=== PATIENT | female | born 1965 | race Caucasian/White ===

== ENCOUNTER 2017-06-09 11:44 | Day surgery (SDC) | payer OTHER ==
[2017-04-13 11:32] VITALS: BMI 40.0
--- NOTE | 2017-04-13 12:01 | PAT Medication Instructions ---
Service Date Apr 13, 2017. Current Home Medication List Acetaminophen (Tylenol), 2 TAB PO Q12 PRN for Pain Albuterol Sulfate (Proventil Hfa), 2 PUFF INH Q4H PRN for Shortness of Breath Aspirin (Aspirin Chewable), 81 MG PO QAM Atorvastatin (Lipitor), 20 MG PO QPM Atorvastatin (Lipitor), 20 MG PO QPM Folic Acid (Folvite), 1 MG PO QPM Ketoconazole (Topical) (Ketodan), 1 DOSE EXT DIRECTED PRN for RASH Metoprolol Succ (Toprol Xl) (Toprol-Xl), 1 TAB PO BID Nortriptyline (Pamelor), 50 MG PO HS Omeprazole (Prilosec), 20 MG PO QAM Ramipril (Ramipril), 1 CAP PO QPM Ranitidine Hcl (Zantac), 300 MG PO HS Medication Instructions For Your Scheduled Surgery - Hold the following medications 5 days prior to surgery per surgeon's instructions: Aspirin (Aspirin Chewable), 81 MG PO QAM - Hold the following medications 24 hours prior to surgery: Ramipril (Ramipril), 1 CAP PO QPM Ketoconazole (Topical) (Ketodan), 1 DOSE EXT DIRECTED PRN for RASH - Take the following medications the morning of surgery with a sip of water OTHERWISE NOTHING TO EAT OR DRINK AFTER MIDNIGHT: Acetaminophen (Tylenol), 2 TAB PO Q12 PRN for Pain (may take if needed up to 4 hours prior to surgery) Albuterol Sulfate (Proventil Hfa), 2 PUFF INH Q4H PRN for Shortness of Breath ( use if needed; BRING TO HOSPITAL) Omeprazole (Prilosec), 20 MG PO QAM Metoprolol Succ (Toprol Xl) (Toprol-Xl), 1 TAB PO BID - Take the following medications as scheduled the night before surgery: Ranitidine Hcl (Zantac), 300 MG PO HS Acetaminophen (Tylenol), 2 TAB PO Q12 PRN for Pain Albuterol Sulfate (Proventil Hfa), 2 PUFF INH Q4H PRN for Shortness of Breath Atorvastatin (Lipitor), 20 MG PO QPM Folic Acid (Folvite), 1 MG PO QPM Nortriptyline (Pamelor), 50 MG PO HS Metoprolol Succ (Toprol Xl) (Toprol-Xl), 1 TAB PO BID If you have any questions please call us at [phone] or [phone] or [phone]
[2017-04-13 12:58] LABS: BASO % 0.8 %; BASO ABS # 0.04 K/uL (0-0.2); COMPLETE YES; EOS % 4.4 %; HEMATOCRIT 39.7 % (37-47); IG% 0.2 %; LYMPH % 29.6 %; LYMPH ABS # 1.49 K/uL (1.2-3.4); MEAN CELL VOLUME 80.4 fL (80-100); MEAN CORPUSCULAR HEMOGLOBIN 25.3 pg (25-34); MEAN CORPUSCULAR HGB CONC 31.5 g/dl (32-36); MEAN PLATELET VOLUME 11.5 fL (7.4-10.4); MONO % 10.1 %; NEUT % 54.9 %; PLATELET COUNT 172 K/uL (130-400); RED BLOOD COUNT 4.94 M/uL (4.2-5.4); WHITE BLOOD COUNT 5.04 K/uL (4.8-10.8)
[2017-04-13 13:05] LABS: PROTHROMBIN TIME (PATIENT) 10.8 SECONDS (9.0-12.0)
[2017-04-13 13:06] LABS: CALCIUM 9.2 mg/dl (8.5-10.1); CREATININE 0.8 mg/dl (0.60-1.20); POTASSIUM 4.9 mmol/L (3.5-5.1)
--- NOTE | 2017-04-13 13:46 | DIAGNOSTIC IMAGING REPORT ---
CHEST PREADMISSION(PA/LAT) CLINICAL HISTORY: Preoperative evaluation. COMPARISON STUDY: No previous studies for comparison. FINDINGS: Lung volumes are normal. There is no pneumothorax or pleural effusion. Mild opacity along the left heart border likely reflects epicardial fat pad or atelectasis. There is no evidence of pulmonary edema. Cardiac size is normal. Mediastinal contours are unremarkable. IMPRESSION: No acute cardiopulmonary findings. Electronically signed by: Tyrell Roque M.D. 04/13/2017 1:45 PM Dictated Date/Time: 04/13/2017 1:43 PM
--- NOTE | 2017-06-08 22:28 | History and Physical ---
History & Physical Date Jun 08, 2017. Chief Complaint right foot pain History of Present Illness The patient is a 51 year old female with complaints of right foot plantar fasciitis that has been treated conservatively. X-rays noted a calcaneal spur. She failed all conservative management and is now being set up for surgical management. Past Medical/Surgical History PMH: CAD, HTN, hyperlipidemia, polycythemia, GERD, asthma Past surgical Hx: cardiac catheterization, lap akash, hysterectomy Social hx: + smoker Allergies Coded Allergies: NO KNOWN DRUG ALLERGIES (Verified Allergy, Unknown, ., 04/13/17) Home Medications Scheduled Aspirin (Aspirin Chewable), 81 MG PO QAM Atorvastatin (Lipitor), 20 MG PO QPM Folic Acid (Folvite), 1 MG PO QPM Metoprolol Succ (Toprol Xl) (Toprol-Xl), 1 TAB PO BID Nortriptyline (Pamelor), 50 MG PO HS Omeprazole (Prilosec), 20 MG PO QAM Ramipril (Ramipril), 1 CAP PO QPM Ranitidine Hcl (Zantac), 300 MG PO HS Scheduled PRN Acetaminophen (Tylenol), 2 TAB PO Q12 PRN for Pain Albuterol Sulfate (Proventil Hfa), 2 PUFF INH Q4H PRN for Shortness of Breath Ketoconazole (Topical) (Ketodan), 1 DOSE EXT DIRECTED PRN for RASH Physical Examination Skin: warm/dry, no rash Eyes: normal inspection Head: normocephalic, atraumatic Neck: supple, no adenopathy, trachea midline Respiratory/Chest: lungs clear, normal breath sounds, no respiratory distress Cardiovascular: regular rate, rhythm, no edema Abdomen / GI: normal bowel sounds, non tender Extremities: + pertinent finding (Antalgic gait favoring the RLE. Right foot: tender at the plantar fascia origin. + calcaneal squeeze test. ROM and strength intact.) Neurologic/Psych: no motor/sensory deficits, alert, oriented x 3 Diagnosis Right foot plantar fasciitis Right calcaneal spur Plan of Treatment Recommend a right foot plantar fascia release and calcaneal exostectomy. All potential risks, benefits, complications, alternatives, and rehab have been discussed and she wishes to proceed as indicated. She will be scheduled on 06.09.17.
[~2017-06-09] VITALS: Ht 162.6 cm; Wt 105.7 kg
[~2017-06-09 11:44] MED LIST: ACET-1256 PO; ALBUAER INH; ASPCH81X PO; ATOR-22 PO; CEFAZOLIN 2000 MG/60 ML D5W IV SCH; FOLI1TAB7 PO; KETO1AER EXT; LACTATED RINGER'S 1000ML 1,000 ML IV SCH; METO25TA3 PO; NORT50CA PO; PRLSR20 PO; RAMI5CAP PO; RANI300T PO; ROPIVACAINE 0.5% 5 MG/ML 30 ML VIAL ONE
[2017-06-09 12:12] VITALS: BP 144/96; PULSE 87; TEMP 36.5; O2SAT 98; Ht 162.6 cm; Wt 105.7 kg
[2017-06-09] MEDS ORDERED: MIDAZOLAM HCL 1 MG/ML 2ML VIAL ONE ×2 (13:05→13:59)
[2017-06-09] MEDS ORDERED: LIDOCAINE HCL 2% 2 ML VIAL (20MG/ML) ONE (13:05)
[2017-06-09] MEDS ORDERED: FENTANYL CITRATE INJ 50 MCG/1 ML 2 ML VIAL ONE (13:05)
[2017-06-09] MEDS ORDERED: DEXAMETHASONE SOD INJ 4 MG/ML VIAL ONE (13:05)
[2017-06-09] MEDS ORDERED: PROPOFOL IV EMULSION 10 MG/ML 20 ML VIAL IV ONE (13:05)
[2017-06-09] MEDS ORDERED: ONDANSETRON INJ 2 MG/ML 2 ML VIAL ONE (13:05)
[2017-06-09 14:15] VITALS: PULSE 84; O2SAT 100
[2017-06-09] MEDS ORDERED: HYDROmorphone INJ 1 MG/ML SYR IV PRN (14:15)
[2017-06-09] MEDS ORDERED: ATROPINE SULFATE 0.1 MG/ML 5ML SYR IV PRN (14:15)
[2017-06-09] MEDS ORDERED: ONDANSETRON INJ 2 MG/ML 2 ML VIAL IV PRN (14:15)
[2017-06-09] MEDS ORDERED: EpHEDrine SULFATE INJ 50 MG/ML AMP IV PRN (14:15)
[2017-06-09] MEDS ORDERED: BUPIVACAINE 0.5 % 5 MG/1 ML MPF 30ML VIAL ONE (14:20)
--- NOTE | 2017-06-09 14:58 | History & Physical Bridge Note ---
H&P Re-Evaluation Bridge Note: I have examined the patient, reviewed the History & Physical and in the interval since the performance of the History & Physical I have noted the following changes of clinical significance: No changes noted
[2017-06-09] MEDS ORDERED: ROCURONIUM BROMIDE 10 MG/ML 5 ML VIAL IV ONE (15:56)
[2017-06-09] MEDS ORDERED: GLYCOPYRROLATE INJ 0.2 MG/ML VIAL ONE (16:37)
[2017-06-09] MEDS ORDERED: NEOSTIGMINE METHYLSULFATE 5 MG/5 ML SYR ONE (16:37)
--- NOTE | 2017-06-09 16:44 | Anesthesiology Progress Note ---
Anesthesia Post Op Note Date & Time Jun 09, 2017 at 16:43 Vital Signs Pain Intensity: 4 Vital Signs Past 12 Hours Date Time Temp Pulse Resp B/P (MAP) Pulse Ox O2 Delivery O2 Flow Rate FiO2 06/09/17 14:15 84 22 100 Mask 6.0 06/09/17 12:12 36.5 87 20 144/96 (112) 98 Room Air Notes Mental Status: alert / awake / arousable, participated in evaluation Pt Amnestic to Procedure: Yes Nausea / Vomiting: adequately controlled Pain: adequately controlled Airway Patency, RR, SpO2: stable & adequate BP & HR: stable & adequate Hydration State: stable & adequate Anesthetic Complications: no major complications apparent
--- NOTE | 2017-06-09 16:52 | Discharge Instructions ---
Discharge Instructions Date of Service Jun 09, 2017. Admission Reason for Admission: Right Foot Plantar Fascitis, Exostosis Discharge Discharge Diagnosis / Problem: Right Foot Plantar Fascitis, Exostosis Discharge Goals Goal(s): Decrease discomfort, Improve function Activity Recommendations Activity Limitations: per Instructions/Follow-up section Weightbearing Status: Right non-weightbearing . Instructions / Follow-Up Instructions / Follow-Up ACTIVITY RECOMMENDATIONS: Limitations: No weight bearing to affected limb at all times. SPECIAL CARE INSTRUCTIONS: * Some drainage onto the dressing is normal and is no cause for alarm. * Some swelling is natural especially after walking. * When resting, keep your foot elevated above the level of your heart. * Call [facility] if you notice: -Increased drainage -Fever over 101 degrees F -Severe constant pain BANDAGE: * Leave bandage/cast in place unless otherwise directed. * Keep bandage/cast dry at all times. FOLLOW UP VISIT WITH DR. DOBSON If appointment is not already scheduled: Please call [facility] after you get home today to schedule a follow-up appointment for [address] Dobson at . Current Hospital Diet Patient's current hospital diet: Discharge Diet Recommended Diet: Regular Diet Procedures Procedures Performed: Right Foot Plantar Fascia Release, Calcaneal Exostectomy Pending Studies Studies pending at discharge: no Medical Emergencies . Who to Call and When: Medical Emergencies: If at any time you feel your situation is an emergency, please call [phone] immediately. . Non-Emergent Contact Non-Emergency issues call your: Surgeon Call Non-Emergent contact if: temperature is above 101, your pain is worsening , wound has increased drainage . "Provider Documentation" section prepared by Cash Dobson. . VTE Core Measure Inpt VTE Proph given/why not?: Other Anticoagulation (EC ASA 81mg PO daily)
[2017-06-09 17:15] VITALS: BP 147/94; PULSE 82; TEMP 36.4; O2SAT 94
[2017-06-09 17:45] VITALS: BP 147/70; PULSE 69; O2SAT 97
[2017-06-09 18:15] VITALS: BP 144/83; PULSE 72; TEMP 36.2; O2SAT 96
--- NOTE | 2017-07-14 08:52 | [facility] Post Operative Brief Note ---
Immediate Operative Summary Operative Date Jul 14, 2017. Pre-Operative Diagnosis Right foot plantar fasciitis; Right calcaneal spur Post-Operative Diagnosis Right foot plantar fasciitis; Right calcaneal spur Procedure(s) Performed Right Foot Plantar Fascia Release; Calcaneal Exostectomy Surgeon Dr. Cash Allen Industrial Chemistry Teacher Surgeon(s) None Estimated Blood Loss 4ml Findings See dict Specimens none per surgeon Dr. Cash Allen Drains None Anesthesia GLMA w/ regional Complication(s) None Disposition Recovery Room / PACU
--- NOTE | 2017-07-14 09:12 | OPERATIVE REPORT ---
DATE OF OPERATION: 06/09/2017 PREOPERATIVE DIAGNOSES: 1. Right chronic plantar fasciitis. 2. Calcaneal exostosis. POSTOPERATIVE DIAGNOSES: 1. Right chronic plantar fasciitis. 2. Calcaneal exostosis. PROCEDURE: 1. Right plantar fascial release. 2. Right calcaneal exostectomy. SURGEON: Cash Allen DO. FINISHING ROOM OPERATOR: Moris Altamirano PA-C. ANESTHESIA: General LMA with regional. SPECIMENS: None. DRAINS: None. COMPLICATIONS: None. BLOOD LOSS: 4 mL. PERTINENT HISTORY: This is a 51-year-old female who had a case of chronic plantar fascitis with calcaneal exostosis. She attempted and failed conservative management including physical therapy, physician directed home exercises, use of a night splint, shoe inserts, activity modification and observation. The patient was then scheduled for right plantar fascial release with calcaneal exostectomy as indicated. All potential risks, benefits, complications, alternatives, rehab, potential for incomplete relief of symptoms, need for further surgery, DVT, PE, , persistent pain, swelling, scarring, weakness, neurovascular injury, wound complications, persistent heel pain were discussed with the patient. The patient decided to proceed with procedure as indicated. DESCRIPTION OF PROCEDURE: The patient was taken to operative suite, placed supine on the operating room table. After review of consent and identification of proper operative site, the patient was anesthetized, LMA was placed. The patient had previously received a popliteal block in the preoperative holding area. The right lower extremity was then sterilely prepped and draped in usual fashion, elevated, and exsanguinated with an Esmarch bandage and tourniquet inflated to 350 mmHg. Next, a 15 blade scalpel was used to make an incision on the medial border of the heel adjacent to the plane of the posterior aspect of the medial malleolus. The incision was then deepened through the subcutaneous tissue, centered over the plantar fascial origin. The incision was then deepened through subcutaneous tissue. Meticulous hemostasis was achieved with electrocautery. Appropriate retractors were placed in the incision to gain visualization of the plantar fascia. The plantar fascia was then cut with a 15 blade scalpel approximately [address] the plantar fascia thus retaining the lateral approximately 20-25% of the fascia attachment laterally. Next, a 15 blade was then used to excise a small portion of the hypertrophic scared plantar fascia. Next, the calcaneal exostosis was visualized clearly and then a 10 mm osteotome and mallet was then used to remove the exostosis without difficulty. Exostosis was then retrieved with a rongeur and the calcaneus was then smoothed and contoured with a rongeur. Next, the wound was copiously irrigated with sterile normal saline. There was minimal bleeding noted and at this point opted not place any bone wax on the calcaneus. The irrigation was then performed until clear. Next, 2-0 Vicryl was used to close the deep fascia, 3-0 Vicryl was then used to close the dermis and the skin was then closed using interrupted 4-0 nylon. Next, sterile compressive dressing was applied and wrapped with a bulky plaster splint. The foot was held in neutral dorsiflexion and the tourniquet was released. The patient was then awakened and taken to recovery in stable condition. I attest to the content of the Intraoperative Record and any orders documented therein. Any exception s are noted below.
== END 2017-06-09 18:25 | disposition home or self-care (01) ==
LOC: C.ACU 11:44
PROVIDERS: ATTEND Orthopaedic Surgery Sports Medicine
DX: M72.2 Plantar fascial fibromatosis (principal); M77.31 Calcaneal spur, right foot; I25.10 Atherosclerotic heart disease of native coronary artery without angina pectoris; I10 Essential (primary) hypertension; E78.5 Hyperlipidemia, unspecified; K21.9 Gastro-esophageal reflux disease without esophagitis; J45.909 Unspecified asthma, uncomplicated; Z90.49 Acquired absence of other specified parts of digestive tract; Z90.710 Acquired absence of both cervix and uterus; Z79.82 Long term (current) use of aspirin; Z95.818 Presence of other cardiac implants and grafts; E66.01 Morbid (severe) obesity due to excess calories; D45 Polycythemia vera

== ENCOUNTER 2021-09-20 11:33 | Inpatient (IN) ==
--- NOTE | 2021-09-20 11:39 | Emergency Department Note ---
Impression & Plan COPD exacerbation, CAP (community acquired pneumonia), Sinus tachycardia, HLD (hyperlipidemia), Tobacco use disorder ED Provider Note NAME: ZANE CARREON AGE: 56 SEX: F : 1965 ARRIVES VIA: Ambulance INFORMANT: Patient, ED PROVIDER(S): Jules Hernandez MD Chief Complaint: Shortness of breath HPI: Patient does present with shortness of breath ongoing x1 week and progressively worse. Patient has had cough that is nonproductive in nature. The patient does smoke but has no former history or formal diagnosis of lung disease. Patient denies any chest pains. Patient denies any lower extremity swelling or history of DVT. Patient denies any calf pain, recent surgeries, recent procedures or travel. The patient did state that her grandchildren had some upper respiratory type symptoms over [place] but nothing else otherwise. Patient has a try to take [id number] medications for cough but this is not improved her symptoms. Patient denies any nausea vomiting or diarrhea. The patient did present at [facility] and stated that the patient did have desaturations to 87% with ambulation with a heart rate in the 180s. Patient is vaccinated for Covid but not the flu. ROS: See HPI for pertinent positives and negatives. A total of 10 systems were reviewed and otherwise negative. Past medical history: See below Surgical history: See below Social history: See below Physical Exam: GENERAL: NAD, wearing a mask, non-toxic. EYE EXAM: Normal conjunctiva. PERRL, no anisocoria and EOM's grossly intact w/o pain. NECK: Supple, no nuchal rigidity, no adenopathy, non-tender. No signs of meningi smus. LUNGS: Diffuse inspiratory and expiratory wheezes throughout. Normal chest wall mechanics. HEART: Tachycardic and regular, no MRG. ABDOMEN: Abdomen soft, non-tender, normo-active bowel sounds, no masses, no rebound or guarding. BACK: No CVA TTP. SKIN: No rashes and no bruising. UPPER EXTREMITIES: Upper extremities are grossly normal. LOWER EXTREMITIES: Grossly normal, no edema. Negative Homans' sign bilaterally NEURO EXAM: A&O x3, cranial nerves II-XII grossly intact, normal speech, moves all 4 extremities on command w/o issue. Differential diagnoses: Reactive airway disease, pneumonia, pneumothorax, COPD, CHF, infections, cardiac ischemia, pulmonary embolism, musculoskeletal, gas trointestinal, as well as other pathologies. Course: Patient was seen and evaluated the bedside. Full history physical exam was performed. EKG interpreted by me Normal sinus rhythm, rate of 100, normal intervals, normal axis, no ST changes or T WI. Imaging Studies: See Below Cardiac monitoring: An order was placed for continuous cardiac monitoring. The monitor shows a rate of 112 with tachycardic and regular rhythm. MDM: Patient did present due to concern for shortness of breath. The patient does have diffuse wheezing throughout. Patient denies any prior or formal diagnosis of lung disease with the patient does smoke. Patient has any chest pains. Patient did have blood work completed along with an EKG troponin chest x-ray. The patient sitting is at 97% and heart rate was in the 110s. Patient was ordered breathing treatments, IV fluids, magnesium, steroids, Covid swab. Patient has a normal white count and normal kidney function. The patient's D- dimer was elevated. Troponin not detectable. Flu Covid and RSV negative. Chest x-ray is unremarkable. CT with no evidence of PE but does have groundglass tree-in-bud opacities which may represent a mild pneumonia. Antibiotics deferred to inpatient team. Upon repeat assessment the patient stated that she did feel improved but the patient still has significant wheezing and believe that the patient would not be suitable candidate for home especially in light of the patient's recent hypoxemia and without prior history of diagnosis of lung disease. I did speak the on-call hospitalist Chari Denise and the patient was admitted to the [facility] service. Past Med/Surg History Medical History CAD (coronary artery disease) s/p stent 2011 in [place] GERD (gastroesophageal reflux disease) HLD (hyperlipidemia) Tobacco use disorder Surgical History H/O foot surgery History of hysterectomy Hx of cholecystectomy Family History Other Heart disease Liver cancer Social History Smoking Status: Current every day smoker Tobacco Type: Cigarettes Second Hand Exposure: No; Do You Dip or Chew Tobacco: No; Tobacco Cessation Education Requested by Patient: No Hx Alcohol Use: No Hx Substance Use: No Preferred Language: Mohawk Communication Ability: Effective Piece Maker Required: No Beliefs That Will Affect Care: None Current Living Situation: Significant Other Other Information That Helps Us Care for You: No Feels Safe at Home: Yes Safety Concerns: Feels Safe At This Time Assistive Devices: None Immunizations: Vaccinated for COVID-19 but not flu. Allergies Allergies Allergy/AdvReac Type Severity Reaction Status Date / Time No Known Drug Allergies Allergy Unknown . Verified 09/20/21 12:53 Home Meds Home Medications Medication Instructions Recorded Confirmed albuterol sulfate 90 mcg/actuation 2 puff INHALATION Q4H PRN #0 04/13/1712/07 aerosol inhaler aspirin 81 mg chewable tablet 81 mg PO DAILY #0 04/13/17 09/20/21 folic acid 1 mg tablet 1 mg PO PM #0 tab 04/13/17 09/20/21 nortriptyline 50 mg capsule 50 mg PO HS #0 cap 04/13/17 09/20/21 omeprazole 20 mg tablet,delayed 20 mg PO QAM #0 cap 04/13/17 09/20/21 release ramipril 5 mg capsule 5 mg PO PM 90 Days #0 cap 04/13/17 09/20/21 atorvastatin 80 mg tablet 80 mg PO DAILY 09/20/21 09/20/21 metoprolol tartrate 25 mg tablet 25 mg PO BID 09/20/21 09/20/21 pregabalin 50 mg capsule 50 mg PO TID 09/20/21 09/20/21 Results & Data (ED) Vital Signs Vital Signs - 24 hr 09/20/21 11:34 09/20/21 11:47 09/20/21 13:02 Temperature 36.7 C Temperature Source Oral Pulse Rate 92 H Pulse Rate [Right Finger] 85 Respiratory Rate 22 18 Respiratory Effort / Characteristics Non-Labored Spontaneous Blood Pressure 155/97 H Blood Pressure [Left Arm] Blood Pressure Mean 116 Blood Pressure Mean [Left Arm] Pulse Oximetry 95 94 Oxygen Delivery Method Room Air Room Air Room Air Sepsis Recent Fever Within 48 Hours No Sepsis New/Unexplained Change in Mental Status No Sepsis Action Taken by Nursing No Action Required 09/20/21 13:24 09/20/21 14:39 Temperature 37 C Temperature Source Axillary Pulse Rate Pulse Rate [Right Finger] 92 H 114 H Respiratory Rate 20 24 Respiratory Effort / Characteristics Blood Pressure Blood Pressure [Left Arm] 128/79 128/79 Blood Pressure Mean Blood Pressure Mean [Left Arm] 95 95 Pulse Oximetry 94 92 Oxygen Delivery Method Room Air Sepsis Recent Fever Within 48 Hours Sepsis New/Unexplained Change in Mental Status Sepsis Action Taken by Prison Medications Current Medication List: was personally reviewed by me Laboratory Data Attestation: I reviewed the patient's lab results. Result diagrams: 09/21/21 05:48 09/20/21 12:12 Lab Results 09/20/21 09/20/21 09/20/21 Range/Units 12:12 12:12 12:46 WBC Cancelled RBC Cancelled Hgb Cancelled Hct Cancelled MCV Cancelled MCH Cancelled MCHC Cancelled RDW Std Deviation Cancelled RDW Coeff of Shira Cancelled Plt Count Cancelled MPV Cancelled Immature Gran % (Auto) Cancelled Neut % (Auto) Cancelled Lymph % (Auto) Cancelled [place] % (Auto) Cancelled Eos % (Auto) Cancelled Baso % (Auto) Cancelled Neut # (Auto) Cancelled Lymph # (Auto) Cancelled [place] # (Auto) Cancelled Eos # (Auto) Cancelled Baso # (Auto) Cancelled Immature Gran # (Auto) Cancelled Absolute Nucleated RBC Cancelled Nucleated RBC % (auto) Cancelled Neutrophils % (Manual) Cancelled Band Neutrophils % Cancelled Lymphocytes % (Manual) Cancelled Prolymphocyte % Cancelled Reactive Lymphs % (Man) Cancelled Monocytes % (Manual) Cancelled Eosinophils % (Manual) Cancelled Basophils % (Manual) Cancelled Metamyelocytes % (Man) Cancelled Myelocytes % (Man) Cancelled Promyelocytes % (Man) Cancelled Blast Cells % (Manual) Cancelled Plasma Cell % (Manual) Cancelled Other Cells % Cancelled Nucleated RBC % Cancelled Neutrophils # (Manual) Cancelled Band Neutrophils # Cancelled Total Absolute Neuts Cancelled Lymphocytes # (Manual) Cancelled Prolymphocyte # Cancelled Reactive Lymphs # Cancelled Total Abs Lymphocytes Cancelled Monocytes # (Manual) Cancelled Eosinophils # (Manual) Cancelled Basophils # (Manual) Cancelled Metamyelocytes # (Man) Cancelled Myelocytes # (Manual) Cancelled Promyelocytes # (Man) Cancelled Blast Cells # (Man) Cancelled Plasma Cell # (Manual) Cancelled Other Cells # Cancelled Nucleated RBCs # (Man) Cancelled Hypersegmented Neuts Cancelled Hyposegmented Neuts Cancelled Hypogranular Neuts Cancelled Large Granular Lymphs Cancelled # Lrg Granular Lymphs Cancelled Hairy Cells Cancelled Smudge Cells Cancelled Toxic Granulation Cancelled Toxic Vacuolation Cancelled Dohle Bodies Cancelled Hunter Rods Cancelled Platelet Estimate Cancelled Hypogranular Platelets Cancelled Clumped Platelets Cancelled Giant Platelets Cancelled Platelet Satelliting Cancelled RBC Morphology Cancelled Polychromasia Cancelled Hypochromasia Cancelled Poikilocytosis Cancelled Basophilic Stippling Cancelled Anisocytosis Cancelled Microcytosis Cancelled Macrocytosis Cancelled Spherocytes Cancelled Pappenheimer Bodies Cancelled Sickle Cells Cancelled Target Cells Cancelled Tear Drop Cells Cancelled Ovalocytes Cancelled Stomatocytes Cancelled [place] Bodies Cancelled Echinocytes Cancelled Acanthocytes (Spur) Cancelled Rouleaux Cancelled RBC Agglutinates Cancelled Schistocytes Cancelled RBC Morph Comment Cancelled [place] Cell Cancelled D-Dimer 880 H* (0-500) ug/L FEU Sodium 136 (136-145) mmol/L Potassium 3.7 (3.5-5.1) mmol/L Chloride 101 (98-107) mmol/L Carbon Dioxide 30 (21-32) mmol/L Anion Gap 5.0 (3-11) BUN 7 (7-18) mg/dl Creatinine 0.76 (0.6-1.2) mg/dl Est Cr Clr Drug Dosing Not Reportable Est GFR ( Amer) 100.9 ml/min Est GFR (Non-Af Amer) 87.1 ml/min BUN/Creatinine Ratio 9.0 L (10-20) Glucose 129 H (70-99) mg/dl Calcium 9.0 (8.5-10.1) mg/dl Total Bilirubin 0.4 (0.2-1) mg/dl AST 21 (15-37) U/L ALT 26 (12-78) Alkaline Phosphatase 99 (45-117) U/L Troponin I < 0.015 (0-0.045) ng/ml NT-Pro-B Natriuret Pep 69 (0-900) pg/ml Total Protein 7.2 (6.4-8.2) gm/dl Albumin 3.1 L (3.4-5.0) gm/dl Globulin 4.1 H (2.5-4.0) gm/dl Albumin/Globulin Ratio 0.8 L (0.9-2) Specimen Hemolysis 09/20/21 Range/Units 12:49 WBC 4.17 L RBC 4.81 Hgb 12.3 Hct 40.1 MCV 83.4 MCH 25.6 MCHC 30.7 L RDW Std Deviation 43.8 RDW Coeff of Shira 14.4 Plt Count 124 L MPV 11.7 H Immature Gran % (Auto) 0.2 Neut % (Auto) 56.3 Lymph % (Auto) 28.1 [place] % (Auto) 12.0 Eos % (Auto) 2.9 Baso % (Auto) 0.5 Neut # (Auto) 2.35 Lymph # (Auto) 1.17 L [place] # (Auto) 0.50 Eos # (Auto) 0.12 Baso # (Auto) 0.02 Immature Gran # (Auto) 0.01 Absolute Nucleated RBC 0.03 H Nucleated RBC % (auto) 0.8 Neutrophils % (Manual) Band Neutrophils % Lymphocytes % (Manual) Prolymphocyte % Reactive Lymphs % (Man) Monocytes % (Manual) Eosinophils % (Manual) Basophils % (Manual) Metamyelocytes % (Man) Myelocytes % (Man) Promyelocytes % (Man) Blast Cells % (Manual) Plasma Cell % (Manual) Other Cells % Nucleated RBC % Neutrophils # (Manual) Band Neutrophils # Total Absolute Neuts Lymphocytes # (Manual) Prolymphocyte # Reactive Lymphs # Total Abs Lymphocytes Monocytes # (Manual) Eosinophils # (Manual) Basophils # (Manual) Metamyelocytes # (Man) Myelocytes # (Manual) Promyelocytes # (Man) Blast Cells # (Man) Plasma Cell # (Manual) Other Cells # Nucleated RBCs # (Man) Hypersegmented Neuts Hyposegmented Neuts Hypogranular Neuts Large Granular Lymphs # Lrg Granular Lymphs Hairy Cells Smudge Cells Toxic Granulation Toxic Vacuolation Dohle Bodies [place] Rods Platelet Estimate Hypogranular Platelets Clumped Platelets Giant Platelets Platelet Satelliting RBC Morphology Polychromasia Hypochromasia Poikilocytosis Basophilic Stippling Anisocytosis Microcytosis Macrocytosis Spherocytes Pappenheimer Bodies Sickle Cells Target Cells Tear Drop Cells Ovalocytes Stomatocytes [place] Bodies Echinocytes Acanthocytes (Spur) Rouleaux RBC Agglutinates Schistocytes RBC Morph Comment [place] Cell D-Dimer (0-500) ug/L FEU Sodium (136-145) mmol/L Potassium (3.5-5.1) mmol/L Chloride (98-107) mmol/L Carbon Dioxide (21-32) mmol/L Anion Gap (3-11) BUN (7-18) mg/dl Creatinine (0.6-1.2) mg/dl Est Cr Clr Drug Dosing Est GFR ( Amer) ml/min Est GFR (Non-Af Amer) ml/min BUN/Creatinine Ratio (10-20) Glucose (70-99) mg/dl Calcium (8.5-10.1) mg/dl Total Bilirubin (0.2-1) mg/dl AST (15-37) U/L ALT (12-78) Alkaline Phosphatase (45-117) U/L Troponin I (0-0.045) ng/ml NT-Pro-B Natriuret Pep (0-900) pg/ml Total Protein (6.4-8.2) gm/dl Albumin (3.4-5.0) gm/dl Globulin (2.5-4.0) gm/dl Albumin/Globulin Ratio (0.9-2) Specimen Hemolysis Administered Medications Enalapril Maleate (Enalapril Maleate 10 Mg Tab) 20 mg PO PM [facility]; Protocol Stop: 10/20/21 20:59 Last Admin: 09/20/21 20:15 Dose: 20 mg Documented by: [id number] Enoxaparin Sodium (Enoxaparin Inj 40 Mg/0.4 Ml Syr) 40 mg SQ Q24H [facility] Stop: 10/20/21 20:59 Last Admin: 09/20/21 22:42 Dose: Not Given Documented by: [id number] Folic Acid (Folic Acid 1 Mg Tab) 1 mg PO PM [facility] Stop: 10/20/21 20:59 Last Admin: 09/20/21 20:15 Dose: 1 mg Documented by: [id number] Methylprednisolone 40 mg/ (Syringe) 0.64 mls @ 1.5 mls/min IV Q8H [facility] Stop: 10/21/21 01:59 Last Admin: 09/21/21 02:19 Dose: 1.5 mls/min Documented by: [id number] Levalbuterol HCl (Levalbuterol Hcl 0.63 Mg/3 Ml Neb) 0.63 mg NEB Q6R [facility]; Protocol Stop: 10/20/21 19:59 Last Admin: 09/21/21 00:30 Dose: 0.63 mg Documented by: [id number] Admin: 09/20/21 19:44 Dose: Not Given Documented by: [id number] Metoprolol Tartrate (Metoprolol Tartrate 25 Mg Tab) 25 mg PO BID ANAND Stop: 10/20/21 20:59 Last Admin: 09/20/21 20:15 Dose: 25 mg Documented by: [id number] Nortriptyline HCl (Nortriptyline Hcl 25 Mg Cap) 50 mg PO HS ANAND Stop: 10/20/21 20:59 Last Admin: 09/20/21 20:15 Dose: 50 mg Documented by: [id number] Pregabalin (Pregabalin 50 Mg Cap) 50 mg PO TID ANAND Stop: 10/20/21 20:59 Last Admin: 09/20/21 21:34 Dose: 50 mg Documented by: [id number] Discontinued Medications Albuterol (Albut/Ipratrop 3mg/0.5mg Neb 3 Ml Vial) 12 ml INH ONE STA Stop: 09/20/21 11:48 Last Admin: 09/20/21 13:02 Dose: 12 ml Documented by: [id number] Albuterol (Albut/Ipratrop 3mg/0.5mg Neb 3 Ml Vial) 12 ml NEB ONE ONE; Protocol Stop: 09/20/21 15:10 Last Admin: 09/20/21 18:54 Dose: Not Given Documented by: [id number] Sodium Chloride (Nss) 500 mls @ 999 mls/hr IV .Q31M STA Stop: 09/20/21 12:17 Last Infusion: 09/20/21 19:23 Dose: 0 mls/hr Documented by: [id number] Admin: 09/20/21 12:53 Dose: 999 mls/hr Documented by: [id number] Magnesium Sulfate/Dextrose (Magnesium Sulfate / D5w) 1 gm in 100 mls @ 100 mls/hr IV NOW STA Stop: 09/20/21 12:47 Last Infusion: 09/20/21 19:23 Dose: 0 mls/hr Documented by: [id number] Admin: 09/20/21 12:53 Dose: 100 mls/hr Documented by: [id number] Azithromycin 500 mg/ Dextrose 255 mls @ 127.5 mls/hr IV NOW ONE Stop: 09/20/21 20:29 Last Infusion: 09/20/21 22:15 Dose: 0 mls/hr Documented by: [id number] Admin: 09/20/21 20:14 Dose: 127.5 mls/hr Documented by: [id number] Ceftriaxone Sodium 2,000 mg/ (Dextrose) 70 mls @ 100 mls/hr IV NOW ONE; Protocol Stop: 09/20/21 19:11 Last Infusion: 09/20/21 20:14 Dose: 0 mls/hr Documented by: [id number] Admin: 09/20/21 19:39 Dose: 100 mls/hr Documented by: [id number] Ioversol (Optiray 320 125ml) 115 ml IV ONCE ONE Stop: 09/20/21 14:30 Last Admin: 09/20/21 14:29 Dose: 115 ml Documented by: [id number] Methylprednisolone (Methylprednisolone 125 Mg/2 Ml Vial) 60 mg IV NOW STA Stop: 09/20/21 11:48 Last Admin: 09/20/21 12:53 Dose: 60 mg Documented by: [id number] Methylprednisolone (Methylprednisolone 40 Mg/Ml Vial) 40 mg IV Q8H ANAND Stop: 10/20/21 17:29 Last Admin: 09/20/21 18:27 Dose: 40 mg Documented by: [id number] Miscellaneous (Patient's Height And/Or Weight Needed) 1 ea N/A Q2H ANAND Stop: 10/20/21 18:44 Last Admin: 09/20/21 19:58 Dose: Not Given Documented by: [id number] Admin: 09/20/21 19:58 Dose: Not Given Documented by: [id number] Imaging Data Radiologist's Impression: Chest X-Ray 09/20/21 11:47 XR chest 1V portable CLINICAL HISTORY: Dyspnea, wheezing TECHNIQUE: Single frontal radiograph of the chest was obtained. Comparison: Comparison is made to chest 2 views 04/13/2017 FINDINGS: No lines and tubes are seen. Cardiomegaly is noted. The lungs are clear. No evidence of pleural effusion or pneumothorax. IMPRESSION: No acute chest disease. ACT 112: Negative or not required by law. Electronically signed by: Wayne Hodgson M.D. 09/20/2021 12:21 PM Chest CTA 09/20/21 13:43 CHEST CTA for PULMONARY ARTERIES CT DOSE: 804.29 mGy.cm HISTORY: Dyspnea. Wheezing. TECHNIQUE: Multiaxial CT images of the chest were performed following the intravenous administration of contrast to evaluate the pulmonary arteries. Maximal intensity projection images were also obtained. A dose lowering technique was utilized adhering to the principles of ALARA. COMPARISON STUDY: None. FINDINGS: Limited views of the upper abdomen demonstrate normal liver, spleen, and right adrenal gland. There is a 1.2 cm left adrenal gland nodule which demonstrates average Hounsfield units of less than 10. Therefore, this would be consistent with a benign adenoma. Prior cholecystectomy. Tiny fat-containing left-sided Bochdalek hernia. The thyroid gland enhances normally. Normal esophagus. The heart is normal in size. No pleural or pericardial effusions. Subcentimeter mediastinal lymph nodes do not meet CT criteria for pathologic involvement. Normal caliber thoracic aorta with no evidence for dissection. Respiratory motion artifact results in nondiagnostic evaluation of the majority of the left lung proximal segmental pulmonary arteries and right lower lobe s ubsegmental pulmonary arteries. However, the remaining pulmonary arteries show no filling defects to suggest a pulmonary embolus. No suspicious lytic or blastic osseous lesions. No pneumothorax. A 3 mm nodule within the left lung apex on image 285. A few small subtle patchy groundglass airspace opacities within the base of the left lower lobe best seen on image 116. Mild emphysema. Small patchy groundglass densities within the right upper lobe anteriorly on image 172 and a few tree-in-bud nodular opacities seen within the right middle lobe and right lower lobe. Therefore, these findings favor a mild pneumonia. IMPRESSION: 1. No evidence for pulmonary embolus with limitations as described above. 2. A few small patchy groundglass and tree-in-bud nodular opacities seen within the lung bases as described above. This favors a mild pneumonia. 3. A 3 mm indeterminate pulmonary nodule within the left lung apex. Please refer to the chart below for recommended follow-up. 4. Mild emphysema. Please refer to below summary of Fleischner criteria recommendations for follow- up of incidental CT nodules (Santiago Spencer, Guidelines for management of small pulmonary nodules detected on CT scans: A statement from the Fleischner Society, Radiology 237: [phone].) SOLID NODULES Solitary nodule size: <6 mm * Low risk patients: no follow-up needed * high risk patients: optional CT at 12 months Solitary nodule size: 6-8 mm * Low risk patients: follow-up at 6-12 months, then consider further follow-up at 18-24 months * high risk patients: initial follow-up CT at 6-12 months and then at 18-24 months if no change Solitary nodule size: >8 mm * either low or high risk patients - consider follow-up CT at 3 months, and/or CT-PET, and/or biopsy Multiple nodules size: <6 mm * Low risk patients: no routine follow-up * high risk patients: optional CT at 12 months Multiple nodules size: 6-8 mm * Low risk patients: follow-up at 3-6 months, then consider further follow-up at 18-24 months * high risk patients: follow-up at 3-6 months, then at 18-24 months if no jacek nge Multiple nodules size: >8 mm * Low risk patients: follow-up at 3-6 months, then consider further follow-up at 18-24 months * high risk patients: follow-up at 3-6 months, then at 18-24 months if no change Note: newly detected indeterminate nodule in persons 35 years of age or older. * Low risk patients: minimal or absent history of smoking and/or other known risk factors * high risk patients: history of smoking or of other known risk factors (e.g. first degree relative with lung cancer, or exposure to asbestos, radon, uranium) * if a nodule up to 8 mm is partly solid or is ground glass further follow-up is required after 24 months to exclude possible slow growing adenocarcinoma ([facility]) SUBSOLID NODULES Solitary pure ground-glass nodule * nodule size <6 mm - no CT follow-up required * nodule size >=6 mm - follow-up CT at 6-12 months, then every 2 years until 5 years Solitary part-solid nodule * nodule size <6 mm - no CT follow-up required * nodule size >=6 mm - follow-up CT at 3-6 months. If unchanged, and solid component remains <6 mm, then annual follow-up for 5 years Multiple subsolid nodules * nodule size <6 mm - follow-up CT at 3-6 months, consider further follow-up at 2 and 4 years if stable * nodule size >=6 mm - follow-up CT at 3-6 months, subsequent management based on the most suspicious nodule(s) ACT 112: Positive. There are findings on this exam that require communication between the performing entity and the patient following Patient Test Result Information Act ([place] Act 112) guidelines. Electronically signed by: Shaun Rockwell M.D. 09/20/2021 2:44 PM Discharge Plan Visit Data Chief Complaint: Illness ED Provider: Jules Hernandez Discharge Problem: COPD exacerbation, CAP (community acquired pneumonia), Sinus tachycardia, HLD (hyperlipidemia), Tobacco use disorder Patient Disposition: Admitted As Inpatient Discharge Instructions Interventions: ED Discharge Assessment Last Done: 09/20/21 18:24
[2021-09-20] MEDS ORDERED: ALBUT/IPRATROP 3MG/0.5MG NEB 3 ML VIAL INH STA (11:47)
[2021-09-20] MEDS ORDERED: SODIUM CHLORIDE 0.9% 500 ML IV STA (11:47)
[2021-09-20] MEDS ORDERED: methylPREDNISolone 125 MG/2 ML VIAL IV STA (11:47)
[2021-09-20] MEDS ORDERED: MAGNESIUM SULFATE / D5W 1 GM/100 ML BAG IV STA (11:48)
--- NOTE | 2021-09-20 12:22 | XRay Report ---
XR chest 1V portable CLINICAL HISTORY: Dyspnea, wheezing TECHNIQUE: Single frontal radiograph of the chest was obtained. Comparison: Comparison is made to chest 2 views 04/13/2017 FINDINGS: No lines and tubes are seen. Cardiomegaly is noted. The lungs are clear. No evidence of pleural effus ion or pneumothorax. IMPRESSION: No acute chest disease. ACT 112: Negative or not required by law. Electronically signed by: Wayne Hodgson M.D. 09/20/2021 12:21 PM
[2021-09-20 13:21] LABS: Influenza A virus by PCR Negative (Neg); Influenza B virus by PCR Negative (Neg); RSV by PCR Negative (Neg); SARS CoV2 RNA(COVID-19) InHosp NEGATIVE (Negative)
[2021-09-20 13:25] LABS: Basophils # (auto) 0.02 K/uL (0-0.2); Basophils % (auto) 0.5 %; Eosinophils # (auto) 0.12 K/uL (0-0.5); Eosinophils % (auto) 2.9 %; Hematocrit (blood only) 40.1 % (37-47); Hemoglobin 12.3 g/dL (12.0-16.0); Immature Granulocytes # (auto) 0.01 K/uL (0.00-0.02); Immature Granulocytes % (auto) 0.2 %; Lymphocytes # (auto) 1.17 K/uL (1.2-3.4); Lymphocytes % (auto) 28.1 %; Mean Corpuscular Hemoglobin 25.6 pg (25-34); Mean Corpuscular Hgb Conc 30.7 g/dL (32-36); Mean Corpuscular Volume 83.4 fL (80-100); Mean Platelet Volume 11.7 fL (7.4-10.4); Neutrophils # (auto) 2.35 K/uL (1.4-6.5); Neutrophils % (auto) 56.3 %; Nucleated RBC # (auto) 0.03 K/uL (0-0); Nucleated RBC % (auto) 0.8 %; Platelet Count 124 K/uL (130-400); RDW Coefficient of Variation 14.4 % (11.5-14.5); RDW Standard Deviation 43.8 fL (36.4-46.3); Red Blood Count 4.81 M/uL (4.2-5.4); White Blood Count 4.17 K/uL (4.8-10.8)
[2021-09-20 13:36] LABS: D Dimer 880 ug/L FEU (0-500)
[2021-09-20 14:05] LABS: Alanine Aminotransferase 26 (12-78); Albumin Globulin Ratio 0.8 (0.9-2); Albumin Level 3.1 gm/dl (3.4-5.0); Alkaline Phosphatase 99 U/L (45-117); Aspartate Aminotransferase 21 U/L (15-37); Bilirubin,Total 0.4 mg/dl (0.2-1); Blood Urea Nitrogen 7 mg/dl (7-18); Carbon Dioxide 30 mmol/L (21-32); Chloride 101 mmol/L (98-107); Est GFR (African American) 100.9 ml/min; Est GFR (Non-African American) 87.1 ml/min; Globulin 4.1 gm/dl (2.5-4.0); Glucose 129 mg/dl (70-99); NT Pro B Type Natriuretic Pept 69 pg/ml (0-900); Potassium 3.7 mmol/L (3.5-5.1); Sodium 136 mmol/L (136-145); Total Protein 7.2 gm/dl (6.4-8.2); Troponin I < 0.015 ng/ml (0-0.045)
--- NOTE | 2021-09-20 14:19 | Electrocardiogram Report ---
Test Reason : Blood Pressure : / mmHG Vent. Rate : 100 BPM Atrial Rate : 100 BPM P-R Int : 134 ms QRS Dur : 072 ms QT Int : 348 ms P-R-T Axes : 074 072 045 degrees QTc Int : 448 ms Normal sinus rhythm Normal ECG When compared with ECG of 13-APR-2017 12:08, No significant change was found Confirmed by Francisco Lee ([id number]) on 09/20/2021 2:19:05 PM Referred By: REFERRED SELF Confirmed By:Francisco Lee
[2021-09-20] MEDS ORDERED: OPTIRAY 320 125ml IV ONE (14:29)
--- NOTE | 2021-09-20 14:45 | CT Scan Report ---
CHEST CTA for PULMONARY ARTERIES CT DOSE: 804.29 mGy.cm HISTORY: Dyspnea. Wheezing. TECHNIQUE: Multiaxial CT images of the chest were performed following the intravenous administration of contrast to evaluate the pulmonary arteries. Maximal intensity projection images were also obtaine d. A dose lowering technique was utilized adhering to the principles of ALARA. COMPARISON STUDY: None. FINDINGS: Limited views of the upper abdomen demonstrate normal liver, spleen, and right adrenal glan d. There is a 1.2 cm left adrenal gland nodule which demonstrates average Hounsfield units of less th an 10. Therefore, this would be consistent with a benign adenoma. Prior cholecystectomy. Tiny fat-con taining left-sided Bochdalek hernia. The thyroid gland enhances normally. Normal esophagus. The heart is normal in size. No pleural or pericardial effusions. Subcentimeter mediastinal lymph nodes do not meet CT criteria for pathologic involvement. Normal caliber thoracic aorta with no evidence for diss ection. Respiratory motion artifact results in nondiagnostic evaluation of the majority of the left l prakash proximal segmental pulmonary arteries and right lower lobe subsegmental pulmonary arteries. Howev er, the remaining pulmonary arteries show no filling defects to suggest a pulmonary embolus. No suspi cious lytic or blastic osseous lesions. No pneumothorax. A 3 mm nodule within the left lung apex on i mage 285. A few small subtle patchy groundglass airspace opacities within the base of the left lower lobe best seen on image 116. Mild emphysema. Small patchy groundglass densities within the right uppe r lobe anteriorly on image 172 and a few tree-in-bud nodular opacities seen within the right middle l obe and right lower lobe. Therefore, these findings favor a mild pneumonia. IMPRESSION: 1. No evidence for pulmonary embolus with limitations as described above. 2. A few small patchy groundglass and tree-in-bud nodular opacities seen within the lung bases as radha cribed above. This favors a mild pneumonia. 3. A 3 mm indeterminate pulmonary nodule within the left lung apex. Please refer to the chart below f or recommended follow-up. 4. Mild emphysema. Please refer to below summary of Fleischner criteria recommendations for follow-up of incidental CT n odules (Santiago Spencer, Guidelines for management of small pulmonary nodules detected on CT scans: A sta tement from the Fleischner Society, Radiology 237: [phone].) SOLID NODULES Solitary nodule size: <6 mm * Low risk patients: no follow-up needed * high risk patients: optional CT at 12 months Solitary nodule size: 6-8 mm * Low risk patients: follow-up at 6-12 months, then consider further follow-up at 18-24 months * high risk patients: initial follow-up CT at 6-12 months and then at 18-24 months if no change Solitary nodule size: >8 mm * either low or high risk patients - consider follow-up CT at 3 months, and/or CT-PET, and/or biopsy Multiple nodules size: <6 mm * Low risk patients: no routine follow-up * high risk patients: optional CT at 12 months Multiple nodules size: 6-8 mm * Low risk patients: follow-up at 3-6 months, then consider further follow-up at 18-24 months * high risk patients: follow-up at 3-6 months, then at 18-24 months if no change Multiple nodules size: >8 mm * Low risk patients: follow-up at 3-6 months, then consider further follow-up at 18-24 months * high risk patients: follow-up at 3-6 months, then at 18-24 months if no change Note: newly detected indeterminate nodule in persons 35 years of age or older. * Low risk patients: minimal or absent history of smoking and/or other known risk factors * high risk patients: history of smoking or of other known risk factors (e.g. first degree relative with lung cancer, or exposure to asbestos, radon, uranium) * if a nodule up to 8 mm is partly solid or is ground glass further follow-up is required after 24 m onths to exclude possible slow growing adenocarcinoma (MONTSE) SUBSOLID NODULES Solitary pure ground-glass nodule * nodule size <6 mm - no CT follow-up required * nodule size >=6 mm - follow-up CT at 6-12 months, then every 2 years until 5 years Solitary part-solid nodule * nodule size <6 mm - no CT follow-up required * nodule size >=6 mm - follow-up CT at 3-6 months. If unchanged, and solid component remains <6 mm, then annual follow-up for 5 years Multiple subsolid nodules * nodule size <6 mm - follow-up CT at 3-6 months, consider further follow-up at 2 and 4 years if sta ble * nodule size >=6 mm - follow-up CT at 3-6 months, subsequent management based on the most suspiciou s nodule(s) ACT 112: Positive. There are findings on this exam that require communication between the performing entity and the patient following Patient Test Result Information Act ([place] Act 112) guidelines. Electronically signed by: Shaun Rockwell M.D. 09/20/2021 2:44 PM
[2021-09-20] MEDS ORDERED: ALBUT/IPRATROP 3MG/0.5MG NEB 3 ML VIAL NEB ONE (15:09)
--- NOTE | 2021-09-20 15:33 | History & Physical Report ---
Date of Service September 20, 2021 Assessment & Plan (1) COPD exacerbation: Plan: This is a 56-year-old female with PMH of tobacco use, hypertension, CAD (s/p stent in 2011), dyslipidemia and other medical problems listed below who presents from [facility] with cough and was found to have COPD exacerbation. Dry cough, congestion and exertional dyspnea x 6 days, 20 pack year history No formal diagnosis of COPD or pulmonology evaluation in the past Became hypoxia with exertion while ambulating in clinic, pulse ox dropped to 87% Afebrile, covid, Flu A/B and RSV PCR negative. Procalcitonin pending Chest CTA without evidence for pulmonary embolus. A few small patchy groundglass and tree-in-bud nodular opacities seen within the lung bases as described above. This favors a mild pneumonia Breathing improved after albuterol neb in ED, given 60mg solumedrol Continue solumedrol 40mg Q8H, Xopenex nebs X6HR Supplemental O2 as needed Would benefit from outpatient pulm evaluation, PFTs (2) CAP (community acquired pneumonia): Plan: Starting Azithromycin and rocephin for possible PNA (3) Tobacco use disorder: Plan: Smoking cessation recommended (4) Pulmonary nodule: Plan: Chest CTA with an incidental3 mm indeterminate pulmonary nodule within the left lung apex Per Fleischner criteria recommendations for follow-up, high risk patient should follow up for optional CT at 12 months (5) Sinus tachycardia: Plan: Developed sinus tachycardia following albuterol treatments in ED - switching to Xopenex neb, monitor on telemetry (6) CAD (coronary artery disease): Plan: H/o stent in 2011 at [facility] No CP or EKG changes. Continue aspirin, statin, beta eunice (7) HLD (hyperlipidemia): Plan: Continue statin DVT Ppx: SQ Lovenox Code status: FULL PCP: Baron Dispo: Admitted to med/surg Patient seen in collaboration with Dr. Carvajal. Please see addendum. History of Present Illness Chief Complaint: Shortness of breath Primary Care Provider: Chris Draper MD This is a 56-year-old female with PMH of tobacco use, hypertension, CAD (s/p st ent in 2011), dyslipidemia and other medical problems listed below who presents from [facility] with cough. Endorses dry cough, congestion and exertional dyspnea, which is not her baseline. Also endorses nausea and decreased appetite over the past few days. [place] similar to this last month when she was also Covid negative. Smokes 1/2 ppd, 20 pack year history. Denies any formal diagnosis of COPD. Has not been evaluated by pulmonology in the past. When ambulating in clinic, pulse ox dropped to 87% and was brought to ED for further evaluation. No shortness of breath at rest. Denies any fever or chills. No sore throat, ear pain, chest pain, palpitations, vomiting, abdominal pain, dysuria, diarrhea constipation. Allergies Allergy/AdvReac Type Severity Reaction Status Date / Time No Known Drug Allergies Allergy Unknown . Verified 09/20/21 12:53 Home Medications Medication Instructions Recorded Confirmed Type albuterol sulfate 90 mcg/actuation 2 puff INHALATION Q4H PRN #0 04/13/17 09/20/21 History aerosol inhaler aspirin 81 mg chewable tablet 81 mg PO DAILY #0 04/13/17 09/20/21 History folic acid 1 mg tablet 1 mg PO PM #0 tab 04/13/17 09/20/21 History nortriptyline 50 mg capsule 50 mg PO HS #0 cap 04/13/17 09/20/21 History omeprazole 20 mg tablet,delayed 20 mg PO QAM #0 cap 04/13/17 09/20/21 History release ramipril 5 mg capsule 5 mg PO PM 90 Days #0 cap 04/13/17 09/20/21 History atorvastatin 80 mg tablet 80 mg PO DAILY 09/20/21 09/20/21 History metoprolol tartrate 25 mg tablet 25 mg PO BID 09/20/21 09/20/21 History pregabalin 50 mg capsule 50 mg PO TID 09/20/21 09/20/21 History Past Med/Surg History Medical History CAD (coronary artery disease) s/p stent 2011 in [place] GERD (gastroesophageal reflux disease) HLD (hyperlipidemia) Tobacco use disorder Surgical History H/O foot surgery History of hysterectomy Hx of cholecystectomy Family History (Updated 09/20/21 @ 17:28 by Chari Denise PA-C) Other Heart disease Liver cancer Social History Smoking Status: Current every day smoker Tobacco Type: Cigarettes Hx Alcohol Use: No Hx Substance Use: No Feels Safe at Home: Yes Review of Systems Review of Systems: At least ten systems reviewed and negative except as noted in the HPI. Physical Exam Physical Exam: General Appearance: WD/WN, vitals as above, NAD, sitting up in bed, pleasant, conversing easily, BUE tremor Head: normocephalic, atraumatic Eyes: normal inspection, PERRL, conjunctivae normal, anicteric sclerae ENT: external ear and nose normal, oropharynx normal Neck: normal visual inspection, trachea midline, no thyromegaly Respiratory: normal respiratory effort, wheezing in anterior lung jacobson, diminished breath sounds at bases, no rhonchi. No accessory muscle use Cardiovascular: tachycardic rate, regular rhythm, no murmur, normal peripheral pulses, no BLE edema. Vessels: no JVD Chest: normal inspection of chest Abdomen/GI: normal bowel sounds, soft, nontender, no hepatosplenomegaly Extremities/Musculoskeletal: no cyanosis or clubbing, extremities motor strength 5/5 Neurologic: PERRL, EOMI, accommodation nl, no face palsy, no dysarthria, CN's II-XI intact bilaterally and moves all extremities Psychiatric: A+Ox3, euthymic affect Skin: no rashes, normal color, warm/dry Results & Data Results & Data ([facility]) Vital Signs (Past 12 Hours) Vital Signs Temp Pulse Pulse Resp BP BP Pulse Ox 09/20/21 14:39 114 H 24 128/79 92 09/20/21 13:24 37 C 92 H 20 128/79 94 09/20/21 13:02 85 18 94 09/20/21 11:34 36.7 C 92 H 22 155/97 H 95 Laboratory Results Short CBC 09/20/21 09/20/21 Range/Units 12:12 12:49 WBC Cancelled 4.17 L Hgb Cancelled 12.3 Hct Cancelled 40.1 Plt Count Cancelled 124 L BMP 09/20/21 12:12 Sodium 136 Potassium 3.7 Chloride 101 Carbon Dioxide 30 BUN 7 Creatinine 0.76 Glucose 129 H Calcium 9.0 Cardiac Enzymes 09/20/21 Range/Units 12:12 Troponin I < 0.015 (0-0.045) ng/ml Liver Function 09/20/21 Range/Units 12:12 Total Bilirubin 0.4 (0.2-1) mg/dl AST 21 (15-37) U/L ALT 26 (12-78) Alkaline Phosphatase 99 (45-117) U/L Albumin 3.1 L (3.4-5.0) gm/dl Diagnostic Findings Chest X-Ray 09/20/21 11:47 XR chest 1V portable CLINICAL HISTORY: Dyspnea, wheezing TECHNIQUE: Single frontal radiograph of the chest was obtained. Comparison: Comparison is made to chest 2 views 04/13/2017 FINDINGS: No lines and tubes are seen. Cardiomegaly is noted. The lungs are clear. No evidence of pleural effusion or pneumothorax. IMPRESSION: No acute chest disease. ACT 112: Negative or not required by law. Electronically signed by: Wayne Hodgson M.D. 09/20/2021 12:21 PM Chest CTA 09/20/21 13:43 CHEST [address]A for PULMONARY ARTER[address] DOSE: 804.29 mGy.cm HISTORY: Dyspnea. Wheezing. TECHNIQUE: Multiaxial CT images of the chest were performed following the intravenous administration of contrast to evaluate the pulmonary arteries. Maximal intensity projection images were also obtained. A dose lowering technique was utilized adhering to the principles of ALARA. COMPARISON STUDY: None. FINDINGS: Limited views of the upper abdomen demonstrate normal liver, spleen, and right adrenal gland. There is a 1.2 cm left adrenal gland nodule which demonstrates average Hounsfield units of less than 10. Therefore, this would be consistent with a benign adenoma. Prior cholecystectomy. Tiny fat-containing left-sided Bochdalek hernia. The thyroid gland enhances normally. Normal esophagus. The heart is normal in size. No pleural or pericardial effusions. Subcentimeter mediastinal lymph nodes do not meet CT criteria for pathologic involvement. Normal caliber thoracic aorta with no evidence for dissection. Respiratory motion artifact results in nondiagnostic evaluation of the majority of the left lung proximal segmental pulmonary arteries and right lower lobe subsegmental pulmonary arteries. However, the remaining pulmonary arteries show no filling defects to suggest a pulmonary embolus. No suspicious lytic or blastic osseous lesions. No pneumothorax. A 3 mm nodule within the left lung apex on image 285. A few small subtle patchy groundglass airspace opacities within the base of the left lower lobe best seen on image 116. Mild emphysema. Small patchy groundglass densities within the right upper lobe anteriorly on image 172 and a few tree-in-bud nodular opacities seen within the right middle lobe and right lower lobe. Therefore, these findings favor a mild pneumonia. IMPRESSION: 1. No evidence for pulmonary embolus with limitations as described above. 2. A few small patchy groundglass and tree-in-bud nodular opacities seen within the lung bases as described above. This favors a mild pneumonia. 3. A 3 mm indeterminate pulmonary nodule within the left lung apex. Please refer to the chart below for recommended follow-up. 4. Mild emphysema. Please refer to below summary of Fleischner criteria recommendations for follow- up of incidental CT nodules (Santiago Spencer, Guidelines for management of small pulmonary nodules detected on CT scans: A statement from the Fleischner Society, Radiology 237: [phone].) SOLID NODULES Solitary nodule size: <6 mm * Low risk patients: no follow-up needed * high risk patients: optional CT at 12 months Solitary nodule size: 6-8 mm * Low risk patients: follow-up at 6-12 months, then consider further follow-up at 18-24 months * high risk patients: initial follow-up CT at 6-12 months and then at 18-24 months if no change Solitary nodule size: >8 mm * either low or high risk patients - consider follow-up CT at 3 months, and/or CT-PET, and/or biopsy Multiple nodules size: <6 mm * Low risk patients: no routine follow-up * high risk patients: optional CT at 12 months Multiple nodules size: 6-8 mm * Low risk patients: follow-up at 3-6 months, then consider further follow-up at 18-24 months * high risk patients: follow-up at 3-6 months, then at 18-24 months if no change Multiple nodules size: >8 mm * Low risk patients: follow-up at 3-6 months, then consider further follow-up at 18-24 months * high risk patients: follow-up at 3-6 months, then at 18-24 months if no change Note: newly detected indeterminate nodule in persons 35 years of age or older. * Low risk patients: minimal or absent history of smoking and/or other known risk factors * high risk patients: history of smoking or of other known risk factors (e.g. first degree relative with lung cancer, or exposure to asbestos, radon, uranium) * if a nodule up to 8 mm is partly solid or is ground glass further follow-up is required after 24 months to exclude possible slow growing adenocarcinoma (MONTSE) SUBSOLID NODULES Solitary pure ground-glass nodule * nodule size <6 mm - no CT follow-up required * nodule size >=6 mm - follow-up CT at 6-12 months, then every 2 years until 5 years Solitary part-solid nodule * nodule size <6 mm - no CT follow-up required * nodule size >=6 mm - follow-up CT at 3-6 months. If unchanged, and solid component remains <6 mm, then annual follow-up for 5 years Multiple subsolid nodules * nodule size <6 mm - follow-up CT at 3-6 months, consider further follow-up at 2 and 4 years if stable * nodule size >=6 mm - follow-up CT at 3-6 months, subsequent management based on the most suspicious nodule(s) ACT 112: Positive. There are findings on this exam that require communication between the performing entity and the patient following Patient Test Result Information Act ([place] Act 112) guidelines. Electronically signed by: Shaun Rockwell M.D. 09/20/2021 2:44 PM ECG Additional Comments: NSR at 100 bpm Supervising Physician Co-Signing Physician Notes I have seen and examined the patient and have discussed the case with the provider above. I agree with the assessment and plan as stated. 56 yo F smoker with a h/o complicated bronchitis flares over the past year. Now with worsening cough that is nonproductive and dyspnea. Likely COPD exacerbation with a possible pneumonia on imaging. Agree with plan above to treat with steroids, bronchodilators, and antibiotics. In general she is obese, tremulous and in no acute distress. She does not demonstrate tachypnea and has very slight conversational dyspnea. Rales and raises were heard at right lower lobe and anterior left chest. More expiratory wheezing was heard. Cardiac exam revealed an S1/S2 heard without murmurs gallops or rubs. There was no peripheral edema and extremities were warm and well perfused. Abdomen was soft nontender nondistended. Continue steroids intravenously and reassess in a.m. Plan to de- escalate antibiotics to oral and de-escalate to prednisone making bronchodilator therapy as needed once wheezing improved and she is feeling better. Wei, DO
[2021-09-20] MEDS ORDERED: ONDANSETRON INJ 2 MG/ML 2 ML VIAL IV PRN (18:25)
[2021-09-20] MEDS ORDERED: ACETAMINOPHEN 325 MG TAB PO PRN (18:25)
[2021-09-20] MEDS ORDERED: POLYETHYLENE (MIRALAX) 17 GM PACK PO PRN (18:25)
[2021-09-20] MEDS ORDERED: ALBUTEROL HFA 8 GM INHALER INH PRN (18:25)
[2021-09-20] MEDS ORDERED: cefTRIAXone SODIUM 2,000 MG in DEXTROSE 5% 50 ML IV ONE (18:30)
[2021-09-20] MEDS ORDERED: AZITHROMYCIN 500 MG in DEXTROSE 5% 250 ML IV ONE (18:30)
[2021-09-20] MEDS: LEVALBUTEROL HCL 0.63 MG/3 ML NEB NEB SCH (19:44)
[2021-09-20] MEDS: PATIENT'S HEIGHT AND/OR WEIGHT NEEDED SCH (19:58)
[2021-09-20] MEDS: NORTRIPTYLINE HCL 25 MG CAP PO SCH (20:15)
[2021-09-20] MEDS: METOPROLOL TARTRATE 25 MG TAB PO SCH (20:15)
[2021-09-20] MEDS: FOLIC ACID 1 MG TAB PO SCH (20:15)
[2021-09-20] MEDS: ENALAPRIL MALEATE 10 MG TAB PO SCH (20:15)
[2021-09-20] MEDS: PREGABALIN 50 MG CAP PO SCH (21:34)
[2021-09-20] MEDS: ENOXAPARIN INJ 40 MG/0.4 ML SYR SQ SCH (22:42)
[2021-09-21] MEDS: LEVALBUTEROL HCL 0.63 MG/3 ML NEB NEB SCH ×3 (00:30→12:07)
[2021-09-21] MEDS: methylPREDNISolone 40 MG in SYRINGE 0 ML IV SCH ×3 (02:19→17:59)
[2021-09-21 06:18] LABS: Hematocrit (blood only) 41.7 % (37-47); Hemoglobin 12.8 g/dL (12.0-16.0); Mean Corpuscular Hemoglobin 25.6 pg (25-34); Mean Corpuscular Hgb Conc 30.7 g/dL (32-36); Mean Corpuscular Volume 83.4 fL (80-100); Mean Platelet Volume 11.2 fL (7.4-10.4); Platelet Count 153 K/uL (130-400); RDW Coefficient of Variation 14.7 % (11.5-14.5); RDW Standard Deviation 44.5 fL (36.4-46.3); White Blood Count 7.18 K/uL (4.8-10.8)
[2021-09-21 06:55] LABS: BUN Creatinine Ratio 8.5 (10-20); Calcium 9.1 mg/dl (8.5-10.1); Est GFR (Non-African American) 100.1 ml/min; Potassium 4.3 mmol/L (3.5-5.1)
[2021-09-21] MEDS: PANTOprazole 40 MG TAB PO SCH (09:25)
[2021-09-21] MEDS: ATORVASTATIN 40 MG TAB PO SCH (09:25)
[2021-09-21] MEDS: METOPROLOL TARTRATE 25 MG TAB PO SCH ×2 (09:25→21:05)
[2021-09-21] MEDS: ASPIRIN 81 MG ECTAB PO SCH (09:25)
[2021-09-21] MEDS: PREGABALIN 50 MG CAP PO SCH ×3 (09:26→21:09)
[2021-09-21] MEDS ORDERED: ALBUT/IPRATROP 3MG/0.5MG NEB 3 ML VIAL NEB PRN (14:40)
--- NOTE | 2021-09-21 15:40 | Hospitalist Progress Note ---
Date of Service September 21, 2021 Assessment & Plan (1) COPD exacerbation: Plan: still with symptoms, wheezing, cough and hypoxia. Cont steroids, bronchodilators and oxygen supplementation. No formal diagnosis of COPD or pulmonology evaluation in the past Afebrile, covid, Flu A/B and RSV PCR negative. Chest CTA without evidence for pulmonary embolus. A few small patchy ground glass and tree-in-bud nodular opacities seen within the lung bases as described above. This favors a mild pneumonia Would benefit from outpatient pulm evaluation, PFTs (2) CAP (community acquired pneumonia): Plan: Cont Rocephin/Azithro (3) Tobacco use disorder: Plan: Smoking cessation recommended (4) Pulmonary nodule: Plan: Chest CTA with an incidental3 mm indeterminate pulmonary nodule within the left lung apex Per Fleischner criteria recommendations for follow-up, high risk patient should follow up for optional CT at 12 months (5) Sinus tachycardia: Plan: Changed to Xopenex neb, monitor on telemetry (6) CAD (coronary artery disease): Plan: chronic, stable. H/o stent in 2011 at [facility] No CP or EKG changes. Continue aspirin, statin, beta eunice (7) HLD (hyperlipidemia): Plan: chronic, stable. Continue statin per home regimen. (8) DVT prophylaxis: Plan: DVT Ppx: SQ Lovenox Full Dispo-to home when improved and off oxygen DO [facility] Hospitalist Admission and Anticipated Discharge Date Admission Date: September 20, 2021 Subjective 56 o F admitted with COPD exacerbation somewhat improved still requiring oxygen denies CP tolerating PO afebrile Review of Systems Review of Systems: All systems were reviewed and negative except as indicated above. Physical Exam Physical Exam: CONSTITUTIONAL: WNWD, vitals as above, generally well- appearing EYES: normal conjunctivae, no scleral icterus ENT: external ear and nose normal, MMM NECK: trachea midline RESPIRATORY: +wheezing, no crackles, normal respiratory effort CARDIOVASCULAR: regular rate and rhythm, S1 and 2 heard without murmurs, gallops or rubs, no JVD, no peripheral edema GASTROINTESTINAL: soft, nontender, ND no guarding MUSCULOSKELETAL: strength 5/5 throughout, head is normocephalic and atraumatic SKIN: warm and dry NEUROLOGIC: CN 2-12 grossly intact, no sensory deficit, normal cognition, normal speech, no tremor, no gross focal deficits. PSYCHIATRIC: alert cooperative and oriented to person, place and time. Results & Data Results & Data ([facility]) Vital Signs (Past 12 Hours) Vital Signs Temp Pulse Resp BP Pulse Ox 09/21/21 12:08 101 H 20 87 L 09/21/21 12:00 36.8 C 79 18 136/75 91 09/21/21 08:00 36.9 C 82 18 131/79 97 09/21/21 07:12 101 H 16 93 09/21/21 04:33 36.7 C 79 24 123/79 95 Laboratory Results Short CBC 09/21/21 Range/Units 05:48 WBC 7.18 (4.8-10.8) K/uL Hgb 12.8 (12.0-16.0) g/dL Hct 41.7 (37-47) % Plt Count 153 (130-400) K/uL BMP 09/21/21 05:48 Sodium 136 Potassium 4.3 D Chloride 101 Carbon Dioxide 31 BUN 5 L Creatinine 0.62 Glucose 121 H Calcium 9.1 Medications Administered Current Inpatient Medications Acetaminophen (Acetaminophen 325 Mg Tab) 650 mg PO Q4H PRN PRN Reason: Pain or Fever Stop: 10/20/21 18:24 Albuterol (Albuterol Hfa 8 Gm Inhaler) 2 puffs INH Q4R PRN PRN Reason: Shortness Of Breath Stop: 10/20/21 18:24 Albuterol (Albut/Ipratrop 3mg/0.5mg Neb 3 Ml Vial) 3 ml NEB QIDR PRN; Protocol PRN Reason: sob/wheezing Stop: 10/21/21 14:59 Aspirin (Aspirin 81 Mg Ectab) 81 mg PO DAILY [facility] Stop: 10/21/21 08:59 Last Admin: 09/21/21 09:25 Dose: 81 mg Documented by: Atorvastatin Calcium (Atorvastatin 40 Mg Tab) 80 mg PO DAILY [facility] Stop: 10/21/21 08:59 Last Admin: 09/21/21 09:25 Dose: 80 mg Documented by: Enalapril Maleate (Enalapril Maleate 10 Mg Tab) 20 mg PO PM [facility]; Protocol Stop: 10/20/21 20:59 Last Admin: 09/20/21 20:15 Dose: 20 mg Documented by: Enoxaparin Sodium (Enoxaparin Inj 40 Mg/0.4 Ml Syr) 40 mg SQ Q24H [facility] Stop: 10/20/21 20:59 Last Admin: 09/20/21 22:42 Dose: Not Given Documented by: Folic Acid (Folic Acid 1 Mg Tab) 1 mg PO PM [facility] Stop: 10/20/21 20:59 Last Admin: 09/20/21 20:15 Dose: 1 mg Documented by: Ceftriaxone Sodium 2,000 mg/ (Dextrose) 70 mls @ 100 mls/hr IV Q24H [facility]; Protocol Stop: 09/26/21 18:41 Azithromycin 500 mg/ Dextrose 255 mls @ 125 mls/hr IV Q24H [facility]; Protocol Stop: 09/24/21 20:03 Methylprednisolone 40 mg/ (Syringe) 0.64 mls @ 1.5 mls/min IV Q8H [facility] Stop: 09/22/21 05:00 Last Admin: 09/21/21 09:26 Dose: 1.5 mls/min Documented by: Metoprolol Tartrate (Metoprolol Tartrate 25 Mg Tab) 25 mg PO BID [facility] Stop: 10/20/21 20:59 Last Admin: 09/21/21 09:25 Dose: 25 mg Documented by: Nortriptyline HCl (Nortriptyline Hcl 25 Mg Cap) 50 mg PO HS [facility] Stop: 10/20/21 20:59 Last Admin: 09/20/21 20:15 Dose: 50 mg Documented by: Ondansetron HCl (Ondansetron Inj 2 Mg/Ml 2 Ml Vial) 4 mg IV Q6H PRN PRN Reason: Nausea Stop: 10/20/21 18:24 Pantoprazole Sodium (Pantoprazole 40 Mg Tab) 40 mg PO QAM [facility]; Protocol Stop: 10/21/21 08:59 Last Admin: 09/21/21 09:25 Dose: 40 mg Documented by: Polyethylene Glycol (Polyethylene (Miralax) 17 Gm Pack) 17 gm PO DAILY PRN PRN Reason: Constipation Stop: 10/20/21 18:24 Prednisone (Prednisone 20 Mg Tab) 40 mg PO DAILY [facility] Stop: 10/22/21 08:59 Pregabalin (Pregabalin 50 Mg Cap) 50 mg PO TID [facility] Stop: 10/20/21 20:59 Last Admin: 09/21/21 15:19 Dose: 50 mg Documented by: (1) HLD (hyperlipidemia) Hyperlipidemia type: unspecified Qualified Code(s): E78.5 - Hyperlipidemia, unspecified (2) CAP (community acquired pneumonia) Laterality: unspecified laterality Qualified Code(s): J18.9 - Pneumonia, unspecified organism
[2021-09-21] MEDS ORDERED: AZITHROMYCIN 500 MG in DEXTROSE 5% 250 ML IV SCH (18:00)
[2021-09-21] MEDS ORDERED: cefTRIAXone SODIUM 2,000 MG in DEXTROSE 5% 50 ML IV SCH (18:00)
[2021-09-21] MEDS ORDERED: MELATONIN 3 MG TAB PO PRN (20:27)
[2021-09-21] MEDS: ENOXAPARIN INJ 40 MG/0.4 ML SYR SQ SCH (21:04)
[2021-09-21] MEDS: ENALAPRIL MALEATE 10 MG TAB PO SCH (21:04)
[2021-09-21] MEDS: NORTRIPTYLINE HCL 25 MG CAP PO SCH (21:05)
[2021-09-21] MEDS: FOLIC ACID 1 MG TAB PO SCH (21:05)
[2021-09-22] MEDS: methylPREDNISolone 40 MG in SYRINGE 0 ML IV SCH (01:38)
[2021-09-22 06:11] LABS: Hemoglobin 13.5 g/dL (12.0-16.0); Mean Corpuscular Hemoglobin 25.7 pg (25-34); Mean Corpuscular Hgb Conc 30.7 g/dL (32-36); Mean Corpuscular Volume 83.7 fL (80-100); Mean Platelet Volume 11.1 fL (7.4-10.4); Platelet Count 181 K/uL (130-400); RDW Coefficient of Variation 14.7 % (11.5-14.5); RDW Standard Deviation 44.8 fL (36.4-46.3); Red Blood Count 5.26 M/uL (4.2-5.4); White Blood Count 10.77 K/uL (4.8-10.8)
[2021-09-22 06:41] LABS: BUN Creatinine Ratio 17.8 (10-20); Calcium 9.5 mg/dl (8.5-10.1); Creatinine Clr Calc Pharmacy 97.6 ml/min; Est GFR (African American) 97.8 ml/min; Est GFR (Non-African American) 84.4 ml/min; Potassium 5.4 mmol/L (3.5-5.1)
[2021-09-22] MEDS: ASPIRIN 81 MG ECTAB PO SCH (07:48)
[2021-09-22] MEDS: ATORVASTATIN 40 MG TAB PO SCH (07:48)
[2021-09-22] MEDS: PANTOprazole 40 MG TAB PO SCH (07:48)
[2021-09-22] MEDS: METOPROLOL TARTRATE 25 MG TAB PO SCH (07:48)
[2021-09-22] MEDS: PREGABALIN 50 MG CAP PO SCH ×2 (07:49→13:22)
[2021-09-22] MEDS ORDERED: predniSONE 20 MG TAB PO SCH (09:00)
--- NOTE | 2021-09-22 09:19 | XRay Report ---
XR chest 1V portable CLINICAL HISTORY: COPD/pna, still hypoxic TECHNIQUE: Single frontal radiograph of the chest was obtained. Comparison: Comparison is made to chest one view 09/20/2021 FINDINGS: No lines and tubes are seen. The cardiomediastinal silhouette is normal. There is a tiny linear focus within the left lung base which likely represents atelectasis. No evidence of pleural effusion or pn eumothorax. IMPRESSION: Tiny linear focus in the left lung base likely represents atelectasis. No definite evidence of pneumo dasia. ACT 112: Negative or not required by law. Electronically signed by: Wayne Hodgson M.D. 09/22/2021 9:18 AM
[2021-09-22 10:26] LABS: BUN Creatinine Ratio 17.6 (10-20); Calcium 9.5 mg/dl (8.5-10.1); Creatinine Clr Calc Pharmacy 95.1 ml/min; Est GFR (African American) 94.9 ml/min; Est GFR (Non-African American) 81.8 ml/min; Potassium 4.4 mmol/L (3.5-5.1)
--- NOTE | 2021-09-22 14:05 | Discharge Summary ---
Date of Service September 22, 2021 Admission HPI Per Admitting Provider This is a 56-year-old female with PMH of tobacco use, hypertension, CAD (s/p stent in 2012), dyslipidemia and other medical problems listed below who presents from [facility] with cough. Endorses dry cough, congestion and exertional dyspnea, which is not her baseline. Also endorses nausea and decreased appetite over the past few days. [place] similar to this last month when she was also Covid negative. Smokes 1/2 ppd, 20 pack year history. Denies any formal diagnosis of COPD. Has not been evaluated by pulmonology in the past. When ambulating in clinic, pulse ox dropped to 87% and was brought to ED for further evaluation. No shortness of breath at rest. Denies any fever or chills. No sore throat, ear pain, chest pain, palpitations, vomiting, abdominal pain, dysuria, diarrhea constipation. Admission Exam Per Admitting Provider General Appearance:WD/WN, vitals as above, NAD, sitting up in bed, pleasant, conversing easily, BUE tremor Head: normocephalic, atraumatic Eyes:normal inspection, PERRL, conjunctivae normal, anicteric sclerae ENT: external ear and nose normal, oropharynx normal Neck: normal visual inspection, trachea midline, no thyromegaly Respiratory:normal respiratory effort, wheezing in anterior lung jacobson, diminished breath sounds at bases, no rhonchi. No accessory muscle use Cardiovascular:tachycardic rate, regular rhythm, no murmur, normal peripheral pulses, no BLE edema. Vessels: no JVD Chest: normal inspection of chest Abdomen/GI: normal bowel sounds, soft, nontender, no hepatosplenomegaly Extremities/Musculoskeletal: no cyanosis or clubbing, extremities motor strength 5/5 Neurologic: PERRL, EOMI, accommodation nl, no face palsy, no dysarthria, CN's II-XI intact bilaterally and moves all extremities Psychiatric:A+Ox3, euthymic affect Skin: no rashes, normal color, warm/dry Principal Diagnosis COPD exacerbation Hypoxia Pneumonia Discharge Exam CONSTITUTIONAL: WNWD, vitals as above, generally well-appearing EYES: normal conjunctivae, no scleral icterus ENT: external ear and nose normal, MMM NECK: trachea midline RESPIRATORY: no wheezing, no crackles, normal respiratory effort CARDIOVASCULAR: regular rate and rhythm, S1 and 2 heard without murmurs, gallops or rubs, no JVD, no peripheral edema GASTROINTESTINAL: soft, nontender, ND no guarding MUSCULOSKELETAL: strength 5/5 throughout, head is normocephalic and atraumatic SKIN: warm and dry NEUROLOGIC: CN 2-12 grossly intact, no sensory deficit, normal cognition, no rmal speech, no tremor, no gross focal deficits. PSYCHIATRIC: alert cooperative and oriented to person, place and time. Discharge Data Allergies Allergy/AdvReac Type Severity Reaction Status Date / Time No Known Drug Allergies Allergy Unknown . Verified 09/20/21 12:53 Consultations 09/20/21 15:09 ED Decision to Admit Stat Ordered Studies 09/20/21 13:43 CT angio chest PE protocol Stat Hospital Course (1) COPD exacerbation: symptoms of wheezing and cough improved significantly by time of discharge and patient was eager to leave the hospital. Hypoxia resolved and 2 step test revealed need for persistent oxygen supplementation with any activity. Overall she received IV then PO steroids, bronchodilators and oxygen supplementation. She also received Rocephin and completed 1500mg of azithromycin prior to discharge. She will be continued on a short course of abx and steroids on discharge. No formal diagnosis of COPD or pulmonology evaluation in the past. Afebrile, covid, Flu A/B and RSV PCR negative. Chest CTA without evidence for pulmonary embolus. A few small patchy ground glass and tree-in-bud nodular opacities seen within the lung bases favoring a small pneumonia. She would benefit from outpatient pulm evaluation, PFTs when completely resolved as outpatient. Also will need a followup CT chest in 12 months to track pulmonary nodule seen on imaging. Smoking cessation strongly recommended. (2) CAP (community acquired pneumonia): (3) Tobacco use disorder: (4) Pulmonary nodule: Total Time Total Time Spent Total Time Spent (In Minutes): 60 Discharge Plan Discharge Items Patient Disposition: Home - Self-Care Reason For Visit: HYPOXIA, COUGH Discharge Diagnosis: COPD exacerbation Hypoxia Pneumonia Condition on Discharge: Good Activity: Resume your previous activity Non-emergency contact: Primary Care Provider Call non-emergency contact if: you have any medication questions, your symptoms worsen and you have a fever Follow-up/Referrals: Chris Draper MD [Primary Care Provider] - (Date & Time 09/29/2021 12:20 PM Provider Chris Draper MD Department Family Medicine [facility] ) Diet: Regular Addtl Attending Provider Instructions: Please take all medications as instructed on discharge as below. It is important that you quit smoking for overall better health. After you are completely recovered from this insult, please consider pulmonary function test as outpatient to formally diagnose you with any lung condition. This may be orchestrated through your primary care doctor. Please follow-up with your primary care doctor within 1 week of discharge from the hospital to ensure you are still doing well. This will also be to ensure that you are tolerating the medications without issue. You may need a prolonged period of steroids and that will be determined at this visit. Your oxygen will also need to be checked at this point. You are being provided with oxygen supplementation to use with any activity. This should slowly improve and you should be able to come off of this within the next couple of weeks. You are being provided with a nebulizer machine and medication for rescue breathing treatments at home. These are only to be used if you are having significant wheezing or shortness of breath as a rescue option. These are not to be scheduled on a daily basis. It was a pleasure taking care of you! Please call if you have any questions or problems. You can reach a [facility] hospitalist on duty at [facility] 24 hours a day by calling [phone]. Take care of yourself. Darline Carvajal, [facility] Hospitalist Pending Studies at Discharge: No Stand-Alone Forms: My [facility], Smoking Cessation Medications and DC Order Prescriptions: New ipratropium-albuterol 0.5 mg-3 mg(2.5 mg base)/3 mL Solution For Nebulization 3 ml NEB QIDR PRN (Reason: shortness of breath or wheezing) Qty: 90 RF: 0 prednisone 20 mg Tablet 40 mg PO DAILY Qty: 14 RF: 0 amoxicillin-pot clavulanate 875-125 mg tablet 1 tab PO BID Qty: 14 RF: 0 Continued aspirin 81 mg Tablet,Chewable 81 mg PO DAILY Qty: 0 RF: 0 folic acid 1 mg Tablet 1 mg PO PM Qty: 0 RF: 0 albuterol sulfate 90 mcg/actuation Hfa Aerosol Inhaler 2 puff INHALATION Q4H PRN (Reason: Shortness Of Breath) Qty: 0 RF: 0 ramipril 5 mg Capsule 5 mg PO PM 90 Days Qty: 0 RF: 3 nortriptyline 50 mg Capsule 50 mg PO HS Qty: 0 RF: 0 omeprazole 20 mg Tablet,Delayed Release (Dr/Ec) 20 mg PO QAM Qty: 0 RF: 0 atorvastatin 80 mg tablet 80 mg PO DAILY RF: 0 metoprolol tartrate 25 mg tablet 25 mg PO BID RF: 0 pregabalin 50 mg capsule 50 mg PO TID RF: 0 Discharge Orders: Discharge Order (Routine); Ordered 09/22/21 Ordered By: Darline Carvajal Admission Data Admit Date/Time: 09/20/21 15:45 Attending Provider: Darline Carvajal Admit Provider: Darline Carvajal Primary Care Provider: Chris Draper Other Providers: Darline Carvajal Other Interventions: Discharge Summary Assessment (RN) Last Done: 09/22/21 15:34
[2021-09-22] MEDS ORDERED: AZITHROMYCIN 250 MG TAB PO ONE (14:15)
== END 2021-09-22 17:13 | disposition home or self-care (01) | DRG 190 ==
LOC: ED 11:33 → EDINP 15:45

== ENCOUNTER 2023-12-07 16:24 | Inpatient (IN) ==
[2023-12-07 17:08] LABS: Hematocrit (blood only) 41.6 % (37.0-47.0); Mean Corpuscular Hemoglobin 26.4 pg (25.0-34.0); Mean Corpuscular Hgb Conc 31.3 g/dL (32.0-36.0); Mean Corpuscular Volume 84.6 fL (80.0-100.0); Mean Platelet Volume 11.5 fL (9.4-12.4); Platelet Count 184 K/uL (130-400); RDW Coefficient of Variation 15.8 % (11.5-14.5); RDW Standard Deviation 47.9 fL (36.4-46.3); Red Blood Count 4.92 M/uL (4.20-5.40); White Blood Count 7.46 K/ul (4.8-10.8)
[2023-12-07 17:26] LABS: Alanine Aminotransferase 15 U/L (7-52); Albumin Globulin Ratio 1.2 (0.9-2); Albumin Level 4.2 gm/dl (3.4-5.0); Alkaline Phosphatase 123 U/L (34-104); BUN Creatinine Ratio 9.2 (10-20); Bilirubin,Total 0.5 mg/dl (0.2-1.0); Blood Urea Nitrogen 7 mg/dl (6-23); Calcium 9.4 mg/dl (8.6-10.3); Carbon Dioxide 29 mmol/L (21-32); Chloride 96 mmol/L (98-107); Est GFR (African American) 99.5 ml/min; Est GFR (Non-African American) 85.9 ml/min; Globulin 3.6 gm/dl (2.5-4.0); Glucose 104 mg/dl (70-99(Fasting)); Total Protein 7.8 gm/dl (6.0-8.3)
[2023-12-07 17:54] LABS: Adenovirus PCR Not Detected (NotDetected); Bordetella parapertussis PCR Not Detected (NotDetected); Bordetella pertussis PCR Not Detected (NotDetected); Chlamydia pneumoniae PCR Not Detected (NotDetected); Coronavirus 229E PCR Not Detected (NotDetected); Coronavirus CoV-2 (COVID19)PCR Not Detected (NotDetected); Coronavirus HKU1 PCR Not Detected (NotDetected); Coronavirus NL63 PCR Not Detected (NotDetected); Coronavirus OC43PCR Not Detected (NotDetected); Human Metapneumovirus PCR Not Detected (NotDetected); Influenza A PCR Not Detected (NotDetected); Influenza B PCR Not Detected (NotDetected); Mycoplasma pneumoniae PCR Not Detected (NotDetected); Parainfluenza Virus 1 PCR Not Detected (NotDetected); Parainfluenza Virus 2 PCR Not Detected (NotDetected); Parainfluenza Virus 3 PCR Not Detected (NotDetected); Parainfluenza Virus 4 PCR Not Detected (NotDetected); Respiratory Syncytial VirusPCR Not Detected (NotDetected); Rhinovirus/Enterovirus PCR Not Detected (NotDetected)
--- NOTE | 2023-12-07 18:06 | Emergency Department Note ---
Impression & Plan Acute hypoxemic respiratory failure, COPD exacerbation, Tobacco use, Hypomagnesemia ED Provider Note NAME: ZANE CARREON AGE: 58 SEX: F : 1965 ARRIVES VIA: Walk-In INFORMANT: Patient, ED PROVIDER(S): Jules Hernandez MD CHIEF COMPLAINT: MEDICAL DECISION MAKING: Patient presents due to concern for dyspnea. IV was established and blood work was obtained. The patient was ordered DuoNeb treatments, magnesium and hour- long neb treatment. Patient's blood work shows a normal white counts H&H and platelet count. Kidney function is unremarkable. Troponin BNP and VBG were added. Bio fire is normal. The patient's chest x-ray shows hazy appearance of the lung bases. The patient's VBG did show mild hypercarbia at 62 with a VBG pH is 7.34. Patient does have low magnesium but was ordered 2 g for COPD exacerbation. Patient troponin is not elevated BNP is not elevated. I did speak the on-call hospitalist RIAZ Staton and the patient was admitted by Dr. Vale. Critical Care: I have personally spent 35 minutes of critical care time in direct management of this patient. This includes bedside care, interpretation of diagnostic studies, and testing, discussion with consultants, patient, and family members, and other require inpatient management activities. This 35 minutes is in excess of all separately billable procedures. Discussion w/ other healthcare providers: RIAZ Delgado and Dr. Vale Prior /Outside records reviewed: I reviewed a discharge summary from September 22, 2021. Patient with known history of tobacco use hypertension CAD hyperlipidemia and had a COPD exacerbation at that time. Patient also diagnosed with community-acquired pneumonia. Discharge summary was from Dr. Carvajal. Differential diagnosis: Reactive airway disease, pneumonia, pneumothorax, COPD, CHF, ACS, pulmonary embolism, musculoskeletal, GERD as well as other pathologies were considered. Diagnostics, as interpreted by me: ECG: Sinus tachycardia, rate of 117, normal intervals, normal axis no ST elevations or TWI. No significant change for comparison September 20, 2021 Cardiac monitoring: An order was placed for continuous cardiac monitoring. The monitor shows a rate of 112 with tachycardic and regular rhythm. Patient was placed on pulse oximetry Medical decision rules: None Imaging studies: I informally interpreted the patient's chest x-ray does not show obvious pneumothorax with formal report to follow. HPI: Patient presents due to concern for worsening shortness of breath. Patient has had 3 days of symptoms known history of COPD and is a chronic smoker. The patient does not wear oxygen but was noted to be 88% on 2 L when she was brought back to room. Patient has had a cough but it is nonproductive. Patient denies any chest pains. Patient's shortness of breath is exertional but currently not at rest. The patient does have some leg swelling states this is relatively chronic. No falls or trauma. The patient had been using her medications for COPD but they were not improving her symptoms. Patient does follow with Dr. Lionel French. PAST MEDICAL HISTORY: See Below PAST SURGICAL HISTORY: See Below SOCIAL HISTORY: See Below HOME MEDICATIONS: See Below ALLERGIES: See Below VITALS: See Below PHYSICAL EXAMINATION: GENERAL: NAD, non-toxic. EYE EXAM: Normal conjunctiva. PERRL, no anisocoria and EOM's grossly intact w/o pain. OROPHARYNX: Moist mucus membranes, grossly normal dentition. NECK: Trachea midline, no stridor. Supple, no nuchal rigidity, no adenopathy, non-tender. No signs of meningismus. FROM of the neck with good chin to chest and neck extension. LUNGS: Clear to auscultation. Inspiratory and expiratory wheezing throughout. S Cardiac: Tachycardic and regular, no MRG. ABDOMEN: Abdomen soft, non-tender, no masses, no rebound or guarding. BACK: No CVA TTP. SKIN: No rashes and no bruising. UPPER EXTREMITIES: Upper extremities are grossly normal. LOWER EXTREMITIES: Grossly normal, trace pretibial edema without any calf pain or erythema. NEURO EXAM: A&O x3, cranial nerves II-XII grossly intact, normal speech, moves all 4 extremities. Past Med/Surg History Medical History HTN (hypertension) Obesity Tobacco use Sinus tachycardia CAP (community acquired pneumonia) Pulmonary nodule COPD exacerbation Tobacco use disorder CAD (coronary artery disease) s/p stent 2011 in [place] GERD (gastroesophageal reflux disease) HLD (hyperlipidemia) Surgical History H/O foot surgery Hx of cholecystectomy History of hysterectomy Family History Other Heart disease Liver cancer Social History Smoking Status: Current every day smoker Tobacco Type: Cigarettes Second Hand Exposure: No; Do You Dip or Chew Tobacco: No; Hx Alcohol Use: No Hx Substance Use: No Preferred Language: Mozambican Communication Ability: Effective Software Manager Required: No Beliefs That Will Affect Care: None marital status: Single Current Living Situation: Significant Other Feels Safe at Home: Yes Assistive Devices: None Allergies Allergies Allergy/AdvReac Type Severity Reaction Status Date / Time No Known Drug Allergies Allergy Unknown . Verified 12/07/23 17:54 Home Meds Home Medications Medication Instructions Recorded Confirmed albuterol sulfate 90 mcg/actuation 2 puff inhalation Q4H PRN 04/13/17 12/07/23 aerosol inhaler Shortness Of Breath ##0 aspirin 81 mg chewable tablet 81 mg PO DAILY ##0 04/13/17 12/07/23 nortriptyline 50 mg capsule 100 mg PO HS #0 caps 04/13/17 12/07/23 ramipril 5 mg capsule 5 mg PO PM 90 days #0 caps 04/13/17 12/07/23 atorvastatin 80 mg tablet 80 mg PO DAILY 09/20/21 12/07/23 metoprolol tartrate 25 mg tablet 25 mg PO BID 09/20/21 12/07/23 duloxetine 60 mg capsule,delayed 60 mg PO QAM 12/07/23 12/07/23 release fluticasone fur. 100 mcg-umeclid 1 inh inhalation QAM 12/07/23 12/07/23 62.5 mcg-vilant 25 mcg inhalat.powder (Trelegy Ellipta) pantoprazole 40 mg tablet,delayed 40 mg PO QAM 12/07/23 12/07/23 release Results & Data (ED) Vital Signs Vital Signs - 24 hr 12/07/23 18:24 12/07/23 18:38 12/07/23 18:38 Pulse Rate 115 H 114 H Pulse Rate from SpO2 Sensor 115 H Pulse Rhythm Respiratory Rate 27 H Blood Pressure Blood Pressure Mean Pulse Oximetry 86 L 96 Oxygen Delivery Method Nasal Cannula Oxygen Flow Rate 2 Oxygen Flow Rate - Titration 4 Pulse Oximetry Post Tiitration 92 12/07/23 19:00 12/07/23 19:14 12/07/23 19:14 Pulse Rate 118 H 115 H Pulse Rate from SpO2 Sensor 118 H 115 H Pulse Rhythm Respiratory Rate 17 27 H Blood Pressure 132/96 Blood Pressure Mean 112 Pulse Oximetry 93 93 Oxygen Delivery Method Oxygen Flow Rate Oxygen Flow Rate - Titration Pulse Oximetry Post Tiitration 12/07/23 19:30 12/07/23 19:31 12/07/23 20:00 Pulse Rate 115 H 115 H Pulse Rate from SpO2 Sensor 115 H Pulse Rhythm Regular Respiratory Rate 22 22 Blood Pressure 147/110 H Blood Pressure Mean 122 Pulse Oximetry 91 92 92 Oxygen Delivery Method Nasal Cannula Nasal Cannula Nasal Cannula Oxygen Flow Rate 2 2 Oxygen Flow Rate - Titration Pulse Oximetry Post Tiitration 12/07/23 20:00 12/07/23 20:01 12/07/23 20:30 Pulse Rate 120 H 120 H 121 H Pulse Rate from SpO2 Sensor 120 H 120 H 120 H Pulse Rhythm Respiratory Rate 24 21 21 Blood Pressure 146/101 H 146/101 H 155/82 H Blood Pressure Mean 116 116 106 Pulse Oximetry 88 L 93 92 Oxygen Delivery Method Nasal Cannula Nasal Cannula Nasal Cannula Oxygen Flow Rate 2 3 3 Oxygen Flow Rate - Titration Pulse Oximetry Post Tiitration 12/07/23 21:00 12/07/23 21:30 Pulse Rate 118 H 119 H Pulse Rate from SpO2 Sensor 118 H 120 H Pulse Rhythm Respiratory Rate 22 22 Blood Pressure 145/95 H 155/107 H Blood Pressure Mean 111 123 Pulse Oximetry 91 91 Oxygen Delivery Method Nasal Cannula Nasal Cannula Oxygen Flow Rate 3 3 Oxygen Flow Rate - Titration Pulse Oximetry Post Tiitration Home Medications Current Medication List: was personally reviewed by pr Laboratory Data Attestation: I reviewed the patient's lab results. 12/07/23 16:30 12/07/23 17:26 Lab Results 12/07/23 12/07/23 12/07/23 Range/Units 16:30 17:26 17:52 WBC 7.46 (4.8-10.8) K/ul RBC 4.92 (4.20-5.40) M/uL Hgb 13.0 (12.0-16.0) g/dl Hct 41.6 (37.0-47.0) % MCV 84.6 (80.0-100.0) fL MCH 26.4 (25.0-34.0) pg MCHC 31.3 L (32.0-36.0) g/dL RDW Std Deviation 47.9 H (36.4-46.3) fL RDW Coeff of Shira 15.8 H (11.5-14.5) % Plt Count 184 (130-400) K/uL MPV 11.5 (9.4-12.4) fL PT Cancelled INR Cancelled APTT Cancelled PTT Ratio Cancelled D-Dimer Cancelled ABG pH (7.35-7.45) ABG pCO2 (35-46) mmHg ABG pO2 (80-95) mmHg ABG HCO3 (19-24) mmol/L ABG O2 Saturation (90-95) % ABG Base Excess (-9-1.8) mEq/L Ellis Test (Pos) VBG pH (7.36-7.41) VBG pCO2 (38-50) mmHg VBG pO2 mmHg VBG HCO3 mmol/L VBG O2 Saturation % VBG Base Excess mEq/L Oxygen Given Sodium TNP 137 Potassium TNP 4.0 Chloride 96 L (98-107) mmol/L Carbon Dioxide 29 (21-32) mmol/L Anion Gap TNP BUN 7 (6-23) mg/dl Creatinine 0.76 (0.6-1.2) mg/dl Est Cr Clr Drug Dosing Not Reportable Est GFR ( Amer) 99.5 ml/min Est GFR (Non-Af Amer) 85.9 ml/min BUN/Creatinine Ratio 9.2 L (10-20) Glucose 104 H (70-99(Fasting)) mg/dl Calcium 9.4 (8.6-10.3) mg/dl Magnesium 1.6 L (1.7-2.4) mg/dl Total Bilirubin 0.5 (0.2-1.0) mg/dl AST TNP 15 ALT 15 (7-52) U/L Alkaline Phosphatase 123 H (34-104) U/L Troponin I High Sens 5.9 (0-14) pg/ml B-Natriuretic Peptide 41 (0-100) pg/ml Total Protein 7.8 (6.0-8.3) gm/dl Albumin 4.2 (3.4-5.0) gm/dl Globulin 3.6 (2.5-4.0) gm/dl Albumin/Globulin Ratio 1.2 (0.9-2) Adenovirus (PCR) Not Detected (NotDetected) B. pertussis DNA (PCR) Not Detected (NotDetected) B.parapertussis DNA PCR Not Detected (NotDetected) C. pneumoniae DNA (PCR) Not Detected (NotDetected) Coronavirus OC43 (PCR) Not Detected (NotDetected) Coronavirus HKU1 (PCR) Not Detected (NotDetected) Coronavirus 229E (PCR) Not Detected (NotDetected) SARS-CoV-2 (PCR) Not Detected (NotDetected) Coronavirus NL63 (PCR) Not Detected (NotDetected) Human Metapneumovir PCR Not Detected (NotDetected) Influenza Type A (PCR) Not Detected (NotDetected) Influenza Type B (PCR) Not Detected (NotDetected) M. pneumoniae (PCR) Not Detected (NotDetected) Parainfluenza 1 (PCR) Not Detected (NotDetected) Parainfluenza 2 (PCR) Not Detected (NotDetected) Parainfluenza 3 (PCR) Not Detected (NotDetected) Parainfluenza 4 (PCR) Not Detected (NotDetected) RSV (PCR) Not Detected (NotDetected) Entero/Rhino (PCR) Not Detected (NotDetected) 12/07/23 12/07/23 12/07/23 Range/Units 18:03 18:26 20:09 WBC (4.8-10.8) K/ul RBC (4.20-5.40) M/uL Hgb (12.0-16.0) g/dl Hct (37.0-47.0) % MCV (80.0-100.0) fL MCH (25.0-34.0) pg MCHC (32.0-36.0) g/dL RDW Std Deviation (36.4-46.3) fL RDW Coeff of Shira (11.5-14.5) % Plt Count (130-400) K/uL MPV (9.4-12.4) fL PT 10.8 INR 1.0 APTT 28 PTT Ratio 1.0 D-Dimer 410 ABG pH 7.40 (7.35-7.45) ABG pCO2 51 H (35-46) mmHg ABG pO2 65 L (80-95) mmHg ABG HCO3 32 H (19-24) mmol/L ABG O2 Saturation 93.2 (90-95) % ABG Base Excess 5.5 H (-9-1.8) mEq/L Ellis Test Pos (Pos) VBG pH 7.34 L (7.36-7.41) VBG pCO2 62 H (38-50) mmHg VBG pO2 30 mmHg VBG HCO3 33 mmol/L VBG O2 Saturation < 60.0 % VBG Base Excess 5.6 mEq/L Oxygen Given 2L Sodium Potassium Chloride (98-107) mmol/L Carbon Dioxide (21-32) mmol/L Anion Gap BUN (6-23) mg/dl Creatinine (0.6-1.2) mg/dl Est Cr Clr Drug Dosing Est GFR ( Amer) ml/min Est GFR (Non-Af Amer) ml/min BUN/Creatinine Ratio (10-20) Glucose (70-99(Fasting)) mg/dl Calcium (8.6-10.3) mg/dl Magnesium (1.7-2.4) mg/dl Total Bilirubin (0.2-1.0) mg/dl AST ALT (7-52) U/L Alkaline Phosphatase (34-104) U/L Troponin I High Sens (0-14) pg/ml B-Natriuretic Peptide (0-100) pg/ml Total Protein (6.0-8.3) gm/dl Albumin (3.4-5.0) gm/dl Globulin (2.5-4.0) gm/dl Albumin/Globulin Ratio (0.9-2) Adenovirus (PCR) (NotDetected) B. pertussis DNA (PCR) (NotDetected) B.parapertussis DNA PCR (NotDetected) C. pneumoniae DNA (PCR) (NotDetected) Coronavirus OC43 (PCR) (NotDetected) Coronavirus HKU1 (PCR) (NotDetected) Coronavirus 229E (PCR) (NotDetected) SARS-CoV-2 (PCR) (NotDetected) Coronavirus NL63 (PCR) (NotDetected) Human Metapneumovir PCR (NotDetected) Influenza Type A (PCR) (NotDetected) Influenza Type B (PCR) (NotDetected) M. pneumoniae (PCR) (NotDetected) Parainfluenza 1 (PCR) (NotDetected) Parainfluenza 2 (PCR) (NotDetected) Parainfluenza 3 (PCR) (NotDetected) Parainfluenza 4 (PCR) (NotDetected) RSV (PCR) (NotDetected) Entero/Rhino (PCR) (NotDetected) Administered Medications Sodium Chloride (Nss) 500 mls @ 100 mls/hr IV .Q5H ONE Stop: 12/08/23 00:25 Last Admin: 12/07/23 19:41 Dose: 100 mls/hr Documented By: ELAINE Discontinued Medications Magnesium Sulfate/Dextrose (Magnesium Sulfate / D5w) 1 gm in 100 mls @ 300 mls/hr IV Q20M ANAND Stop: 12/07/23 19:09 Last Infusion: 12/07/23 19:37 Dose: Infused Documented By: Admin: 12/07/23 18:46 Dose: 300 mls/hr Documented By: Infusion: 12/07/23 18:46 Dose: Infused Documented By: Admin: 12/07/23 18:41 Dose: 300 mls/hr Documented By: ZOILA Ipratropium [place] (Ipratropium [place] Neb Soln 0.02% 0.5mg/2.5ml Vial) 0.5 mg INH NOW STA Stop: 12/07/23 19:29 Last Admin: 12/07/23 19:41 Dose: 0.5 mg Documented By: ELAINE Levalbuterol HCl (Levalbuterol 1.25 Mg/3 Ml Neb) 1.25 mg NEB NOW STA Stop: 12/07/23 19:29 Last Admin: 12/07/23 19:41 Dose: 1.25 mg Documented By: ELAINE Methylprednisolone (Methylprednisolone 125 Mg/2 Ml Vial) 125 mg IV NOW STA Stop: 12/07/23 18:26 Last Admin: 12/07/23 18:41 Dose: 125 mg Documented By: ACC Metoprolol Tartrate (Metoprolol Tartrate 25 Mg Tab) 25 mg PO NOW STA Stop: 12/07/23 21:47 Last Admin: 12/07/23 22:13 Dose: 25 mg Documented By: ELAINE Imaging Data Radiologist's Impression: Chest X-Ray 12/07/23 18:10 XR chest 1V not portable HISTORY: Chest pain, nonspecific COMPARISON: Chest 09/22/2021. FINDINGS: Hazy appearance to the lung bases is likely due to overlapping soft tissue. Otherwise, the lungs are clear. The heart is normal in size. No pleural effusions. No pneumothorax. No acute fractures. IMPRESSION: Hazy appearance to lung bases likely due to overlapping soft tissue. Otherwise, no acute process within the chest. ACT 112: Negative or not required by law. Electronically signed by: Shaun Rockwell M.D. 12/07/2023 6:21 PM Discharge Plan Visit Data Chief Complaint: Shortness of Breath/Dyspnea Stated Complaint: SOB ED Provider: Jules Hernandez Discharge Problem: Acute hypoxemic respiratory failure, COPD exacerbation, Tobacco use, Hypomagnesemia Patient Disposition: Admitted As Inpatient Discharge Instructions Interventions: ED Discharge Assessment Last Done: 12/07/23 23:19
--- NOTE | 2023-12-07 18:23 | XRay Report ---
XR chest 1V not portable HISTORY: Chest pain, nonspecific COMPARISON: Chest 09/22/2021. FINDINGS: Hazy appearance to the lung bases is likely due to overlapping soft tissue. Otherwise, the lungs are clear. The heart is normal in size. No pleural effusions. No pneumothorax. No acute fractur es. IMPRESSION: Hazy appearance to lung bases likely due to overlapping soft tissue. Otherwise, no acute process with in the chest. ACT 112: Negative or not required by law. Electronically signed by: Shaun Rockwell M.D. 12/07/2023 6:21 PM
[2023-12-07] MEDS: methylPREDNISolone 125 MG/2 ML VIAL IV STA (18:41)
[2023-12-07] MEDS: MAGNESIUM SULFATE / D5W 1 GM/100 ML BAG IV SCH (18:41)
[2023-12-07 19:02] LABS: Magnesium 1.6 mg/dl (1.7-2.4)
[2023-12-07 19:04] LABS: D Dimer 410 ug/L FEU (0-500); Partial Thromboplastin Time 28 Seconds (21-31); Prothrombin Time 10.8 Seconds (9.0-12.0)
[2023-12-07 19:09] LABS: Troponin I High Sensitivity 5.9 pg/ml (0-14)
[2023-12-07 19:22] LABS: Base Excess VBG 5.6 mEq/L; HCO3 VBG 33 mmol/L; Oxygen Saturation VBG < 60.0 %; PCO2 VBG 62 mmHg (38-50); PO2 VBG 30 mmHg; pH VBG 7.34 (7.36-7.41)
--- NOTE | 2023-12-07 19:26 | History & Physical Report ---
Date of Service December 07, 2023 Assessment & Plan (1) COPD exacerbation: (2) Tobacco use: (3) Obesity: (4) HTN (hypertension): (5) GERD (gastroesophageal reflux disease): (6) CAD (coronary artery disease): (7) HLD (hyperlipidemia): Plan Ms. Vee is a 58 year old female that presented to the ED today with SOB that has been worsening over the past 3 days despite home inhaler use. She has COPD Group D, but does not wear supplemental O2 at home. She was seen at [facility] today and started on oral steroids and a Z-pac. She makes clear sputum production and has a daily cough that she attributes to smoking. Her boyfriend has supplemental O2 and she uses his sometimes, but hasn't over the past few days. She does smoke approximately 5 cigarettes per day. Additional PMH includes: CAD s/p stent in 2011, COPD, HTN, HLD, depression and anxiety, GERD. In February she had PFTs done; FEV1 Actual Pre 1.21 Most recent ECHO 01/2023 EF 60- 65% with normal wall motion and no significant regurgitation. She was given Solumedrol in the ED and a nebulizer treatment. Pt denies fevers, chills, DEE, dizziness, SOB, chest pain, palpitations, N/V/D, abdominal pain or tenderness, recent falls or trauma. On examination, she is an obese female with no focal deficits, does not appear toxic. She is tachycardic which I suspect related to nebulizer treatment. Decreased air movement and breath sounds. She does have + wheezing and rhonchi. +2 LE edema that she claims is persistent for her. She is maintaining O2 saturations > 99% when I was in the room. Patient will be admitted for acute on chronic COPD exacerbation and placed on IV steroids Q8, nebs, flutter valve, incentive spirometry, sputum culture and pulmonary consultation. Would benefit from a 2 step prior to discharge. Will replace Mg+ and trend. Acute on chronic COPD exacerbation: Acute Does not wear supplemental O2 at home No leukocytosis PFTs done 03/10 FEV1 1.21 Most recent echo 02/07; EF 60 to 65% with normal LV function and no significant regurgitation Solu-Medrol 125 mg IV administered in the ED; continue IV steroids Q8 Nebulizer treatments every 4 hours plus every 2 as needed Flutter valve and incentive spirometry Pulmonary consultation Hypomagnesemia: Acute serum Mg+ 1.6; 2 G IV given in ED Trend Mg+ in AM No ectopy on monitor HTN: Chronic Takes metoprolol and ramipril; continue HLD: Chronic Takes atorvastatin high-dose; continue Most recent triglycerides 11/15/2023 TG 198, HDL 60, LDL 81 GERD: Chronic Takes pantoprazole; continue Disposition: PCP: Dr. Lionel French CODE STATUS: Full code VTE prophylaxis: Lovenox subcu I spent a total of 87 minutes coordinating, documenting, and providing care for this patient excluding time spent in the performance of separately billed services. All of the aforementioned completed while collaborating with the assigned attending physician for a full treatment plan. Please see their addendum for further details. History of Present Illness Chief Complaint: SOB Primary Care Provider: Adore Alfredo MD Ms. Vee is a 58 year old female that presented to the ED today with SOB that has been worsening over the past 3 days despite home inhaler use. She has COPD Group D, but does not wear supplemental O2 at home. She was seen at [facility] today and started on oral steroids and a Z-pac. She makes clear sputum production and has a daily cough that she attributes to smoking. Her boyfriend has supplemental O2 and she uses his sometimes, but hasn't over the past few days. She does smoke approximately 5 cigarettes per day. Additional PMH includes: CAD s/p stent in 2011, COPD, HTN, HLD, depression and anxiety, GERD. In February she had PFTs done; FEV1 Actual Pre 1.21 Most recent ECHO 01/2023 EF 60- 65% with normal wall motion and no significant regurgitation. She was given Solumedrol in the ED and a nebulizer treatment. Pt denies fevers, chills, DEE, dizziness, SOB, chest pain, palpitations, N/V/D, abdominal pain or tenderness, recent falls or trauma. On examination, she is an obese female with no focal deficits, does not appear toxic. She is tachycardic which I suspect related to nebulizer treatment. Decreased air movement and breath sounds. She does have + wheezing and rhonchi. +2 LE edema that she claims is persistent for her. She is maintaining O2 saturations > 99% when I was in the room. Patient will be admitted for acute on chronic COPD exacerbation and placed on IV steroids Q8, nebs, flutter valve, incentive spirometry, sputum culture. Would benefit from a 2 step prior to discharge. Will replace Mg+ and trend in AM. Allergies Allergy/AdvReac Type Severity Reaction Status Date / Time No Known Drug Allergies Allergy Unknown . Verified 12/07/23 17:54 Home Medications Medication Instructions Recorded Confirmed Type albuterol sulfate 90 mcg/actuation 2 puff inhalation Q4H PRN 04/13/17 12/07/23 History aerosol inhaler Shortness Of Breath ##0 aspirin 81 mg chewable tablet 81 mg PO DAILY ##0 04/13/17 12/07/23 History nortriptyline 50 mg capsule 100 mg PO HS #0 caps 04/13/17 12/07/23 History ramipril 5 mg capsule 5 mg PO PM 90 days #0 caps 04/13/17 12/07/23 History atorvastatin 80 mg tablet 80 mg PO DAILY 09/20/21 12/07/23 History metoprolol tartrate 25 mg tablet 25 mg PO BID 09/20/21 12/07/23 History duloxetine 60 mg capsule,delayed 60 mg PO QAM 12/07/23 12/07/23 History release fluticasone fur. 100 mcg-umeclid 1 inh inhalation QAM 12/07/23 12/07/23 History 62.5 mcg-vilant 25 mcg inhalat.powder (Trelegy Ellipta) pantoprazole 40 mg tablet,delayed 40 mg PO QAM 12/07/23 12/07/23 History release Past Med/Surg History Medical History HTN (hypertension) Obesity Tobacco use Sinus tachycardia CAP (community acquired pneumonia) Pulmonary nodule COPD exacerbation Tobacco use disorder CAD (coronary artery disease) s/p stent 2011 in [place] GERD (gastroesophageal reflux disease) HLD (hyperlipidemia) Surgical History H/O foot surgery Hx of cholecystectomy History of hysterectomy Family History Other Heart disease Liver cancer Social History Smoking Status: Current every day smoker Tobacco Type: Cigarettes Cigarettes Per Day: 5; Second Hand Exposure: Yes; Do You Dip or Chew Tobacco: No; Hx Alcohol Use: Yes Alcohol type: beer Hx Substance Use: No Preferred Language: Slovak Communication Ability: Effective [employer] Required: No Beliefs That Will Affect Care: None marital status: Single Current Living Situation: Significant Other Current Living Situation Comment: lives with boyfriend Yrn Other Information That Helps Us Care for You: No Feels Safe at Home: Yes Safety Concerns: Feels Safe At This Time Assistive Devices: Denture - Upper Review of Systems Review of Systems: Neuro: (-) Falls, trauma, slurred speech HEENT: (-) DEE, dizziness, dysphagia, visual or auditory changes CV: (-) CP, palpitations, swelling Resp: (+) SOB GI: (-) appetite changes, N/V/D, bowel changes : (-) urinary changes Skin: (-) rashes Psych: (+) anxiety, depression Physical Exam Physical Exam: Neuro: AAOx4, PERRLA, no aphagia, memory changes, CNII-XII grossly intact. No focal deficits. HEENT: head normocephalic, moist mucus membranes CV: S1/S2, (-) M/G/R, (+) 1 LE edema, cap refill < 3 seconds Resp: inspiratory/expiratory lung sounds;decreased air movement. Receiving nebulizer while I was in the room. GI: Abdomen large S/NT/ND, Ax4 bowel sounds, (-) CVA tenderness Musculoskeletal: 5/5 B/L UE strength, 5/5 B/L LE strength. No gait disturbance Skin: (-) rashes , (-) erythema. Psych: euthymic mood Results & Data Results & Data Vital Signs (Past 12 Hours) Vital Signs Pulse Resp BP Pulse Ox O2 Del Method O2 Flow Rate 12/07/23 19:14 115 H 27 H 93 12/07/23 19:14 132/96 12/07/23 19:00 118 H 17 93 12/07/23 18:38 115 H 27 H 96 12/07/23 18:24 86 L Nasal Cannula 2 Laboratory Results Short CBC 12/07/23 Range/Units 16:30 WBC 7.46 (4.8-10.8) K/ul Hgb 13.0 (12.0-16.0) g/dl Hct 41.6 (37.0-47.0) % Plt Count 184 (130-400) K/uL BMP 12/07/23 12/07/23 16:30 17:26 Sodium TNP 137 Potassium TNP 4.0 Chloride 96 L Carbon Dioxide 29 BUN 7 Creatinine 0.76 Glucose 104 H Calcium 9.4 Liver Function 12/07/23 12/07/23 Range/Units 16:30 17:26 Total Bilirubin 0.5 (0.2-1.0) mg/dl AST TNP 15 ALT 15 (7-52) U/L Alkaline Phosphatase 123 H (34-104) U/L Albumin 4.2 (3.4-5.0) gm/dl Diagnostic Findings Chest X-Ray 12/07/23 18:10 XR chest 1V not portable HISTORY: Chest pain, nonspecific COMPARISON: Chest 09/22/2021. FINDINGS: Hazy appearance to the lung bases is likely due to overlapping soft tissue. Otherwise, the lungs are clear. The heart is normal in size. No pleural effusions. No pneumothorax. No acute fractures. IMPRESSION: Hazy appearance to lung bases likely due to overlapping soft tissue. Otherwise, no acute process within the chest. ACT 112: Negative or not required by law. Electronically signed by: Shaun Rockwell M.D. 12/07/2023 6:21 PM Code Status & VTE Plan Code Status Full code in the event of cardiac or respiratory arrest Supervising Physician Co-Signing Physician Notes IM ATTENDING : Patient seen and examined. History obtained from patient and records. Concur with salient points upon review of preceding documentation by RIAZ Donohue. I take responsibility for plan of care below. FINAL ASSESSMENT AND PLAN as follows : Acute hypoxemic, hypercapnic respiratory failure secondary to COPD exacerbation secondary to viral illness Respiratory acidosis secondary to above Hypertension, slightly elevated secondary illness CAD status post stent GERD stable on regimen History of polycythemia vera attributed to smoking as per outpatient notes Prediabetes, outpatient hemoglobin A1c of 6 last month Hypothyroidism as per records, currently not on replacement Rx ongoing tobacco abuse Medical telemetry Recheck ABG Prednisone course, nebs RTC No indication for antibiotics right now Pulmonary consult if without improvement Nicotine patch as needed DVT prophylaxis per Lovenox subcu Full code Text document was generated using [employer] voice recognition software. It may contain grammatical or spelling errors. Kindly contact undersigned for clarification of any documentation item in question. (7) HLD (hyperlipidemia) Hyperlipidemia type: unspecified Qualified Code(s): E78.5 - Hyperlipidemia, unspecified
[2023-12-07] MEDS: SODIUM CHLORIDE 0.9% 500 ML IV ONE (19:41)
[2023-12-07] MEDS: IPRATROPIUM BROMIDE NEB SOLN 0.02% 0.5MG/2.5ML VIAL INH STA (19:41)
[2023-12-07] MEDS: LEVALBUTEROL 1.25 MG/3 ML NEB NEB STA (19:41)
[2023-12-07 20:18] LABS: Base Excess ABG 5.5 mEq/L (-9-1.8); HCO3 ABG 32 mmol/L (19-24); Oxygen Saturation ABG 93.2 % (90-95); PCO2 ABG 51 mmHg (35-46); PO2 ABG 65 mmHg (80-95)
[2023-12-07 20:35] LABS: Allen Test Pos (Pos)
[2023-12-07] MEDS ORDERED: traMADol HCL 50 MG TABLET PO PRN (21:58)
[2023-12-07] MEDS ORDERED: PROMETHAZINE HCL 12.5 MG in SODIUM CHLORIDE 0.9% 50 ML IV PRN (21:58)
[2023-12-07] MEDS: METOPROLOL TARTRATE 25 MG TAB PO STA (22:13)
[2023-12-08] MEDS: IPRATROPIUM BROMIDE NEB SOLN 0.02% 0.5MG/2.5ML VIAL INH SCH (00:49)
[2023-12-08] MEDS: LEVALBUTEROL 1.25 MG/3 ML NEB NEB SCH (00:50)
[2023-12-08 06:38] LABS: Thyroid Stimulating Hormone 1.054 uIu/ml (0.300-4.500)
[2023-12-08] MEDS: DULoxetine HCL 60 MG CAP PO SCH (08:40)
[2023-12-08] MEDS: FLUTICASONE FUROATE 100MCG 14 PUFFS/INHALER INH SCH (08:40)
[2023-12-08] MEDS: PANTOprazole 40 MG TAB PO SCH (08:41)
[2023-12-08] MEDS: METOPROLOL TARTRATE 25 MG TAB PO SCH (08:41)
[2023-12-08] MEDS: ATORVASTATIN 40 MG TAB PO SCH (08:41)
[2023-12-08] MEDS: predniSONE 20 MG TAB PO SCH (08:42)
[2023-12-08] MEDS: ASPIRIN 81 MG CHEW PO SCH (08:42)
[2023-12-08] MEDS: ENOXAPARIN INJ 40 MG/0.4 ML SYR SQ SCH (08:43)
[2023-12-08] MEDS: UMECLIDINIUM/VILANTEROL 62.5/25MCG 7 PUFFS/INHALER INH SCH (08:46)
[2023-12-08] MEDS ORDERED: NON-FORMULARY MEDICATION (Fluticasone-Umeclidin-Vilanter [Trelegy Ellipta] 100-62.5-25 mcg INH SCH (09:00)
[2023-12-08 09:26] LABS: Hematocrit (blood only) 41.5 % (37.0-47.0); Hemoglobin 12.8 g/dl (12.0-16.0); Mean Corpuscular Hemoglobin 26.2 pg (25.0-34.0); Mean Corpuscular Hgb Conc 30.8 g/dL (32.0-36.0); Mean Platelet Volume 10.8 fL (9.4-12.4); Platelet Count 172 K/uL (130-400); RDW Coefficient of Variation 15.8 % (11.5-14.5); RDW Standard Deviation 48.1 fL (36.4-46.3); Red Blood Count 4.88 M/uL (4.20-5.40); White Blood Count 7.42 K/ul (4.8-10.8)
[2023-12-08 09:42] LABS: BUN Creatinine Ratio 9.5 (10-20); Calcium 9.3 mg/dl (8.6-10.3); Est GFR (African American) 102.8 ml/min; Est GFR (Non-African American) 88.7 ml/min; Potassium 4.5 mmol/L (3.5-5.1)
--- NOTE | 2023-12-08 12:01 | Electrocardiogram Report ---
Test Reason : Blood Pressure : / mmHG Vent. Rate : 117 BPM Atrial Rate : 117 BPM P-R Int : 144 ms QRS Dur : 072 ms QT Int : 318 ms P-R-T Axes : 072 068 061 degrees QTc Int : 443 ms Sinus tachycardia Otherwise normal ECG When compared with ECG of 20-SEP-2021 11:49, No significant change was found Confirmed by Jayme Dill ([id number]) on 12/08/2023 12:01:18 PM Referred By: REFERRED SELF Confirmed By:Brian Dill
[2023-12-08] MEDS: DOXYCYCLINE HYCLATE 100 MG CAP PO SCH (12:25)
--- NOTE | 2023-12-08 12:43 | Discharge Summary ---
Date of Service December 08, 2023 Admission HPI Per Admitting Provider Ms. Vee is a 58 year old female that presented to the ED today with SOB that has been worsening over the past 3 days despite home inhaler use. She has COPD Group D, but does not wear supplemental O2 at home. She was seen at [facility] today and started on oral steroids and a Z-pac. She makes clear sputum production and has a daily cough that she attributes to smoking. Her boyfriend has supplemental O2 and she uses his sometimes, but hasn't over the past few days. She does smoke approximately 5 cigarettes per day. Additional PMH includes: CAD s/p stent in 2011, COPD, HTN, HLD, depression and anxiety, GERD. In February she had PFTs done; FEV1 Actual Pre 1.21 Most recent ECHO 01/2023 EF 60- 65% with normal wall motion and no significant regurgitation. She was given Solumedrol in the ED and a nebulizer treatment. Pt denies fevers, chills, DEE, dizziness, SOB, chest pain, palpitations, N/V/D, abdominal pain or tenderness, recent falls or trauma. On examination, she is an obese female with no focal deficits, does not appear toxic. She is tachycardic which I suspect related to nebulizer treatment. Decreased air movement and breath sounds. She does have + wheezing and rhonchi. +2 LE edema that she claims is persistent for her. She is maintaining O2 saturations > 99% when I was in the room. Patient will be admitted for acute on chronic COPD exacerbation and placed on IV steroids Q8, nebs, flutter valve, incentive spirometry, sputum culture. Would benefit from a 2 step prior to discharge. Will replace Mg+ and trend in AM. Admission Exam Per Admitting Provider Neuro: AAOx4, PERRLA, no aphagia, memory changes, CNII-XII grossly intact. No focal deficits. HEENT: head normocephalic, moist mucus membranes CV: S1/S2, (-) M/G/R, (+) 1 LE edema, cap refill < 3 seconds Resp: inspiratory/expiratory lung sounds;decreased air movement. Receiving nebulizer while I was in the room. GI: Abdomen large S/NT/ND, Ax4 bowel sounds, (-) CVA tenderness Musculoskeletal: 5/5 B/L UE strength, 5/5 B/L LE strength. No gait disturbance Skin: (-) rashes , (-) erythema. Psych: euthymic mood Principal Diagnosis Acute on chronic COPD exacerbation Acute hypoxemic respiratory failure secondary to above Discharge Exam GENERAL: Alert and oriented x3. NAD, on RA. HEENT: No pallor, no icterus. Pupils equal, round and reactive to light. Oral mucosa moist. NECK: No JVD, no neck masses. HEART: S1 and S2 heard. Regular rate and rhythm. No murmur, no gallop. RESPIRATORY SYSTEM: Normal AP diameter. No accessory muscle use. No wheezing, no crackles. Decreased breathing likely secondary to COPD and obesity, minimal rhonchi ABDOMEN: Soft, bowel sounds present, nontender, no distention. CENTRAL NERVOUS SYSTEM: No facial droop. Speech is clear. Obeys simple commands. Moves extremities. EXTREMITIES: No edema, no erythema seen. Discharge Data Allergies Allergy/AdvReac Type Severity Reaction Status Date / Time No Known Drug Allergies Allergy Unknown . Verified 12/07/23 17:54 Consultations 12/07/23 18:40 ED Decision to Admit Stat Hospital Course (1) COPD exacerbation: (2) Tobacco use: (3) Obesity: (4) HTN (hypertension): (5) GERD (gastroesophageal reflux disease): (6) CAD (coronary artery disease): (7) HLD (hyperlipidemia): Plan Patient was seen and examined at bedside as a follow-up of acute exacerbation of COPD and acute hypoxemic respiratory failure. Patient requiring 2 L oxygen, underwent two-step test and needs 2 L oxygen with activity. Oxygen prescription provided. Patient reports feeling better and reports moving closer to her baseline. Patient would like to go home and would not want to stay here at all, rather would go home with oxygen. Reports improvement in her SOB and cough. Patient will be discharged on prednisone taper and antibiotic. Patient complaining of yellowish sputum with the cough. Patient to follow-up with PCP within a week time as a part of transition of care follow-up. Patient strongly encouraged to quit smoking. Patient understands but states " its habit". She is being discharged with following instruction at the point of discharge: Follow-up with your primary care physician within a week time and likely you will need labs CBC/CMP/magnesium/phosphorus. Complete your steroid therapy and antibiotic course as prescribed. You will benefit from establishing with lung doctor as an outpatient, coordinate with your PCP office to set up the referral. You will benefit from pulmonary function test in about 4 to 6 weeks time upon discharge, coordinate with your PCP office to set up the test. You will be discharged on oxygen as you are needing oxygen with activity, continue to follow-up with your PCP office for ongoing management. Take your medications as prescribed. Please make sure that you are able to get your medications today by calling your pharmacy before you leave the hospital so that your treatment continuity is not broken. Home Health Attestation I certify that this patient is under my care and that I, or a physicians visitor use assistant working with me, had a face to-face encounter that meets the home health [id number] encounter requirements with this patient. The encounter with the patient was in whole, or in part, for the following medical condition, which is the primary reason for home health care (list medical condition): I certify that, based on my findings, the following services are medically necessary home health services: My clinical findings support the need for the above services because: Further, I certify that my clinical findings support that this patient is homebound (i.e. absences from home require considerable and taxing effort and are for medical reasons or mosque services or infrequently or of short duration when for other reasons) because: Certification for Home Health Services: Based on the above findings, I certify that this patient is confined to the home and needs intermittent half-way care, physical therapy and/or speech therapy or continues to need occupational therapy. The patient is under my care, and I have initiated the establishment of the plan of care. This patient will be followed by a physician who will periodically review the plan of care. Total Time Total Time Spent Total Time Spent (In Minutes): 45 Discharge Plan Discharge Items Patient Disposition: Home - Self-Care Reason For Visit: RESP FAILURE Discharge Diagnosis: Acute on chronic COPD exacerbation Acute hypoxemic respiratory failure secondary to above Activity: Resume your previous activity Non-emergency contact: Primary Care Provider Call non-emergency contact if: you have any medication questions, your symptoms worsen and your temperature is above 101.5 Follow-up/Referrals: Adore Alfredo MD [Primary Care Provider] - Diet: Heart Healthy Addtl Attending Provider Instructions: Follow-up with your primary care physician within a week time and likely you will need labs CBC/CMP/magnesium/phosphorus. Complete your steroid therapy and antibiotic course as prescribed. You will benefit from establishing with lung doctor as an outpatient, coordinate with your PCP office to set up the referral. You will benefit from pulmonary function test in about 4 to 6 weeks time upon discharge, coordinate with your PCP office to set up the test. You will be discharged on oxygen as you are needing oxygen with activity, continue to follow-up with your PCP office for ongoing management. Take your medications as prescribed. Please make sure that you are able to get your medications today by calling your pharmacy before you leave the hospital so that your treatment continuity is not broken. Pending Studies at Discharge: No Stand-Alone Forms: [facility] [employer], Smoking Cessation Medications and DC Order Prescriptions: New doxycycline hyclate 100 mg Capsule 100 mg PO BID 5 Days Qty: 10 0RF prednisone 20 mg tablet 20 mg PO UD Qty: 11 0RF Rx Instructions: 2 tab daily x 4 days then 1 tab daily x 3 days. famotidine 20 mg tablet 20 mg PO DAILY 7 Days Qty: 7 0RF guaifenesin 1,200 mg tablet extended release 12hr 1,200 mg PO BID 5 Days Qty: 10 0RF Continued aspirin 81 mg Tablet,Chewable 81 mg PO DAILY Qty: 0 albuterol sulfate 90 mcg/actuation Hfa Aerosol Inhaler 2 puff INHALATION Q4H PRN (Reason: Shortness Of Breath) Qty: 0 ramipril 5 mg Capsule 5 mg PO PM 90 Days Qty: 0 nortriptyline 50 mg Capsule 100 mg PO HS Qty: 0 atorvastatin 80 mg tablet 80 mg PO DAILY metoprolol tartrate 25 mg tablet 25 mg PO BID pantoprazole 40 mg tablet,delayed release (DR/EC) 40 mg PO QAM duloxetine 60 mg capsule,delayed release(DR/EC) 60 mg PO QAM Trelegy Ellipta 100-62.5-25 mcg blister with device 1 inh INHALATION QAM Discharge Orders: Discharge Order (Routine); Ordered 12/08/23 Ordered By: Deni Barr Admission Data Admit Date/Time: 12/07/23 21:46 Attending Provider: Deni Barr Admit Provider: Chandra Vale Primary Care Provider: Adore Alfredo Other Providers: Chandra Vale
--- OUTSIDE RECORDS SUMMARY | 2023-12-08 12:54 | External Medical Summary | Summary of Care ---
Author Name Unknown Organization [facility] Address [address] [place] [address] Phone [phone] Care Team Providers Care Junior Net Developer Name Role Phone Adore Khan MD Primary Care Prov ider Reason for Visit * Reason Onset Date Comments Referral 11/16/2023 Encounter Details Date Type Department Care Team ([facility] st Contact Info) Description 11/16/2023 Telephone Family Medicine [address] [phone] Adore Khan MD [address] [place] [phone] Referral Allergies No known active allergiesdocumented as of this encounter (statuses as of 12/06/2023) Medications Medication Sig Dispensed Refills Start Date End Date Status Acetaminophen 500 MG Oral Tablet Take 1 Tablet by mouth every 6 hours as needed for Pain. 30 Tab 0 5 Active RA Aspirin EC 81 MG Oral Tablet Delayed Release (aspirin enteric coated) take 1 tablet by mouth once daily 100 Tab 1 1 Active Ramipril 5 MG Oral Capsule (Altace)Indications :Primary hypertension,Athero sclerosis of [place] coronary artery of [place] heart without angina pectoris TAKE 1 CAPSULE BY MOUTH DAILY BEFORE BEDTIME 90 Capsule 1 3 Active Ipratropium-Albuter ol 0.5-2.5 (3) MG/3ML Inhalation Solution (Duoneb)Indications :COPD exacerbation (HCC) Inhale 3 mL via nebulizer every 6 hours as needed for Cough, Shortness of Breath or Wheezing. 120 mL 0 3 Active Albuterol Sulfate (2.5 MG/3ML) 0.083% Inhalation Nebulization Solution (Proventil)Indicati ons:COPD, group D, by GOLD 2017 classification ([facility]) Inhale 1 Vial via nebulizer every 4 hours as needed for Wheezing or Shortness of Breath. 120 mL 2 3 Active Additional Information Patient not taking.Reported on 11/14/2023 Atorvastatin Calcium 80 MG Oral Tablet (Lipitor)Indication s:Atherosclerosis of [place] coronary artery of [place] heart without angina pectoris,Dyslipidem ia, goal LDL below 100 TAKE ONE TABLET BY MOUTH AT BEDTIME 90 Tablet 0 3 Active Pantoprazole Sodium 40 MG Oral Tablet Delayed Release (Protonix)Indicatio ns:Epigastric pain TAKE ONE TABLET BY MOUTH IN THE MORNING 30 MINUTES BEFORE FIRST MEAL OF THE DAY 90 Tablet 1 3 Active Metoprolol Tartrate 25 MG Oral Tablet (Lopressor)Indicati ons:Primary hypertension TAKE ONE TABLET BY MOUTH TWICE DAILY 180 Tablet 1 4 Active Nortriptyline HCl 50 MG Oral Capsule (Pamelor)Indication s:Hereditary and idiopathic peripheral neuropathy 2 at bedtime 180 Capsule 1 4 Active Trelegy Ellipta 100-62.5-25 MCG/ACT Aerosol Powder Breath Activated (Fluticasone-Umecli dinium-Vilanterol)I ndications:COPD, severity to be determined ([facility]) Inhale 1 Puff by mouth in the morning. 180 Each 3 4 Active Baclofen 10 MG Oral Tablet (Lioresal)Indicatio ns:Hip pain, right Take 1 Tablet by mouth at bedtime as needed for Pain, Moderate or Muscle spasms. 20 Tablet 1 4 Active DULoxetine HCl 60 MG Oral Capsule Delayed Release Particles (Cymbalta)Indicatio ns:Chronic foot pain, right take 1 capsule by mouth every morning DO NOT CRUSH, CHEW, AND/OR DIVIDE 90 Capsule 1 3 12/05/19 24 Discontinued documented as of this encounter (statuses as of 12/06/2023) Active Problems Problem Noted Date Diagnosed Date Prediabetes 11/27/2023 Overview: Per Prediabetes protocol Hereditary and idiopathic peripheral neuropathy 11/14/2023 Gastro-esophageal reflux disease without esophag itis 11/14/2023 COPD exacerbation 11/14/2023 COPD, group D, by GOLD 2017 classification 09/26 Overview: Per COPD GOLD Classification Tarsal tunnel syndrome of right side 06/07/2022 Pulmonary emphysema 05/16/2022 Polycythemia secondary to smoking 01/14/2022 Lumbosacral radiculopathy at L4 03/17/2021 Overview: abnormal EMG Folic acid deficiency 02/10/2017 Gastritis 11/01/2016 Overview: entire stomach on EGD. Calcaneal spur of right foot 09/18/2016 Tinea versicolor 08/24/2016 Dyslipidemia, goal LDL below 100 09/17/2012 Hiatal hernia 10/28/2011 Primary hypertension Tobacco use disorder Gastroesophageal reflux dise ase with esophagitis without hemorrhage Atherosclerosis of lower [place] co ronary artery of lower [place] heart without angina pectoris Pulmonary nodules Adrenal adenoma Persistent insomnia Morbid obesity with BMI of 40.0-44.9, adult documented as of this encounter (statuses as of 12/06/2023) Resolved Problems Problem Noted Date Diagnosed Date Resolved Date COPD, group C, by GOLD 2017 classification 05/30/2022 09/29/2022 Overview: Per COPD GOLD Classification Bronchospasm 01/04/2020 01/14/2022 Elevated hemoglobin 06/17/2014 02/15/20 17 H. pylori infection 11/08/2011 12/28/19 16 Overview: treatment ordered Obesity, Class II, BMI 35-39 .9, isolated (see actual BMI) 03/01/2010 03/04/2015 Overview: Per Obesity Protocol, #19 Hypothyroidism 02/25/2013 CAD (coronary artery disease) 03/04/2015 BMI 40.0-44.9, adult 018 Overview: 242 lbs Pericardial effusion 015 documented as of this encounter (statuses as of 12/06/2023) Immunizations Name Administration Dates Next Due COVID-19 mRNA, LNP-s, No Pre serve, 2-Dose Series (Moderna) 04/07/2021,03/12/2021 PPD 03/23/2011 Pneumococcal Conjugate Vaccine, 20-valent (Prevn ar20) 03/07/2022 Pneumococcal Polysaccharide PPV23 (Pneumovax) TDAP (age 10 and older)(Boostrix) 12/28/2021 TDAP (age 11 and older)(Adacel) 05/20/2010 Zoster Vaccine Recombinant (Shingrix) 11/14/2023 documented as of this encounter Social History Tobacco Use Types Packs/Day Years Used Date Smoking Tobacco: Every Day Cigarettes 1.5 46.3 Started: 1978 Smokeless Tobacco: Never Alcohol Use Standard Drinks/Week Comments Yes 0 (1 standard drink = 0.6 oz pur e alcohol) occ PHQ-2 Answer Date Recorded PHQ-2 Score -1 06/07/2020 Hunger Vital Sign Answer Date Recorded Within the past 12 months, y ou worried that your food would run out before you got the money to buy more. Never true 10/31/19 24 Within the past 12 months, t he food you bought just didn't last and you didn't have money to get more. Never true 10/31/2023 Sex and Gender Information Value Date Recorded Sex Assigned at Female 05/17/2021 11:44 AM EDT Gender Identity Female 05/17/2021 11:44 AM EDT Sexual Orientation Straight 05/17/2021 11 :44 AM EDT Job Start Date Occupation Industry Not on file Not on file Not on file documented as of this encounter Miscellaneous Notes * Telephone Encounter - Kari Gates OSA - 12/06/2023 8:51 AM EDT Pt calling to see about getting scheduled for the orthopaedic surgeon as she was made aware someonewould be reaching out to her to schedule appt. \ I did not see referral in the system for this to have her scheduled. Was this referral ever placed. Please approve referral. * Addendum Note - Cristy Mcguire CMA - 11/20/2023 3:49 PM ESTAddended by: CRISTY MCGUIRE on: 11/20/2023 03:49 PM Modules accepted: Orders * Telephone Encounter - Cristy Mcguire CMA - 11/20/2023 3:49 PM EST Referral pended, patient is aware scheduling will be calling her to set up an appointment. 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 I would recommend Ortho consultation. Referral signed. Please let her know. documented in this encounter Plan of Treatment Upcoming Encounters Date Type Department Care Team (Late st Contact Info) Description 12/21/2023 9:00 AM EDT Imaging Radiology [address] [place] [phone] 01/16/2024 11:20 AM EDT Office Visit Sleep Disorders Ctr [facility] [address] [place] [phone] Maritza Florian, [address] [place] [address] 05/14/2024 11:20 AM EDT Office Visit Family Medicine [address] [place] [phone] Adore Khan MD [address] [place] [address] [place] [address] Health Maintenance Due Date Last Done Comments Alpha-1 Antitrypsin 1982 Hepatitis B (1 of 3 - 19+ 3-dose series) 1983 COLONOSCOPY-EVERY 5 YRS AGES 18-100 06/10/2019 06/10/2014, 06/10/2014, 03/01/2012, Additional history exists Depression Screening 03/23/2021 03/23/2020 DISCUSS TOBACCO CESSATION (REFER TO SMARTSET #8676) 01/14/2023 01/14/2022 COVID-19 Vaccine (3 - 2022-24 season) 2023 04/07/2021, 03/12/2021 Influenza Vaccine (FLU shot) (#1) 2023 08/22/2017 (Refused) Mammogram 12/20/2023 12/19/2022, 11/2022, 12/29/2020, Additional history exists Zoster Vaccines (2 of 2) 01/09/2024 11/14/2023 O2 ASSESSMENT COMPLETED IN PAST YEAR FOR COPD 11/14/2024 11/14/2023 GFR 11/15/2024 11/15/2023, 04/20, 05/17/2023, Additional history exists HbA1c 11/15/2024 11/15/2023, 01/17, 02/06/2012 Albumin/Creatinine Ratio 12/28/2024 12/28/2021, 09/19 DTaP,Tdap,and Td Vaccines (3 - Td or Tdap) 12/29/2031 12/28/2021, 05/20/2010 LUNG CANCER SCREENING - USE SMARTSET 65001 Completed 01/25/2022, 06/15/2015 Pneumococcal Vaccine: Pediatrics (0 to 5 Years) and At-Risk Patients (6 to 64 Years) Completed 03/07/2022, 10/19/2009 GARDASIL-HPV IMMUNIZATION SERIES Aged Out No longer eligible based on patient's age to complete this topic MENINGOCOCCAL (MENACTRA/MENVEO) Aged Out No longer eligible based on patient's age to complete this topic documented as of this encounter Medical Devices Not on filedocumented as of this encounter Care Teams Junior Net Developer Relationship Specialty Start Date End Date Adore Khan MD [address] [place] [address] [place] [phone] PCP - General Family Medicine 11/14/23 documented as of this encounter
--- OUTSIDE RECORDS SUMMARY | 2023-12-08 12:54 | External Medical Summary | Summary of Care ---
Author Name Unknown Organization [facility] Address [address] [place] [address] Phone [phone] Care Team Providers Care Solid Waste Engineer Name Role Phone Alda Nelson MD Primary Care Prov ider Reason for Visit * Reason Comments eRx-Medication Refill Encounter Details Date Type Department Care Team (Late st Contact Info) Description 12/05/2023 Refill Family Medicine [address] [phone] Chris Draper MD [address] [place] [address] [place] [phone] Chronic foot pain, right Allergies No known active allergiesdocumented as of this encounter (statuses as of 12/05/2023) Medications Medication Sig Dispensed Refills Start Date [...] Oral Capsule (Altace)Indications :Primary hypertension,Athero sclerosis of [place] coronary artery of [place] heart without angina pectoris TAKE 1 CAPSULE [...] ons:COPD, group D, by GOLD 2017 classification ([facility]) Inhale 1 Vial via nebulizer every 4 hours as needed for Wheezing or Shortness of Breath. 120 mL 2 3 Active Additional Information Patient not taking.Reported on 11/14/2023 Atorvastatin Calcium 80 MG Oral Tablet (Lipitor)Indication s:Atherosclerosis of [place] coronary artery of [place] heart without angina pectoris,Dyslipidem ia, goal LDL [...] (Fluticasone-Umecli dinium-Vilanterol)I ndications:COPD, severity to be determined ([facility]) Inhale 1 Puff by mouth in the [...] NOT CRUSH, CHEW, AND/OR DIVIDE 90 Capsule 3 4 Active DULoxetine HCl 60 MG Oral Capsule Delayed Release Particles (Cymbalta)Indicatio ns:Chronic foot pain, right take 1 capsule by mouth every morning DO NOT CRUSH, CHEW, AND/OR DIVIDE 90 Capsule 1 08/30/202 3 12/05/19 24 Discontinued documented as of this encounter (statuses as of 12/05/2023) Active Problems Problem Noted Date Diagnosed Date [...] ase with esophagitis without hemorrhage Atherosclerosis of [place] co ronary artery of [place] heart without angina pectoris Pulmonary nodules Adrenal adenoma Persistent insomnia Morbid obesity with BMI of 40.0-44.9, adult documented as of this encounter (statuses as of 12/05/2023) Resolved Problems Problem Noted Date Diagnosed Date [...] as of this encounter (statuses as of 12/05/2023) Immunizations Name Administration Dates Next Due COVID-19 [...] encounter Miscellaneous Notes * Telephone Encounter - Jayme Meraz, [facility] - 12/05/2023 8:45 PM EDT Signed Prescriptions: Disp Refills DULoxetine HCl 60 MG Oral Capsule Delayed *90 Cap*3 Sig: take 1 capsule by mouth every morning DO NOT CRUSH, CHEW, AND/OR DIVIDEAuthorizing Provider: ALDA NELSONOrderelsie User: JAYME MERAZ documented in this encounter Plan of Treatment Upcoming Encounters Date Type Department Care Team (Late st Contact Info) Description 12/21/2023 9:00 AM EDT Imaging Radiology [address] [place] [address] 01/16/2024 11:20 AM EDT Office Visit Sleep Disorders Ctr [facility] [address] [place] [phone] Maritza Florian, [address] [place] [address] 05/14/2024 11:20 AM EDT Office Visit Family Medicine [address] [place] [phone] Alda Nelson MD [address] [place] [address] [place] [phone] Health Maintenance Due Date Last Done Comments Alpha-1 Antitrypsin 1982 Hepatitis B (1 of 3 - 19+ 3-dose series) 1983 COLONOSCOPY-EVERY 5 YRS AGES 18-100 06/10/2019 06/10/2014, 06/10/2014, 03/01/2012, Additional history exists Depression Screening 03/23/2021 03/23/2020 DISCUSS TOBACCO CESSATION (REFER TO SMARTSET #3291) 01/14/2023 01/14/2022 COVID-19 Vaccine ( season) 2023 04/07/2021, 03/12/2021 Influenza Vaccine (FLU shot) (#1) 2023 08/22/2017 (Refused) Mammogram 12/20/2023 12/19/2022, 04/0 11/2022, 12/29/2020, Additional history exists Zoster Vaccines (2 of 2) 01/09/2024 11/14/2023 O2 ASSESSMENT COMPLETED IN PAST YEAR FOR COPD 11/14/2024 11/14/2023 GFR 11/15/2024 11/15/2023, /09/2022, 05/17/2023, Additional history exists HbA1c 11/15/2024 11/15/2023, 01/17, 02/06/2012 Albumin/Creatinine Ratio 12/28/2024 12/28/2021, 09/19 DTaP,Tdap,and Td Vaccines (3 - Td or Tdap) 12/29/2031 12/28/2021, 05/20/2010 LUNG CANCER SCREENING - USE SMARTSET 64513 Completed 01/25/2022, 06/15/2015 Pneumococcal Vaccine: Pediatrics (0 [...] Not on filedocumented as of this encounter Visit Diagnoses Diagnosis Chronic foot pain, right documented in this encounter Care Teams Solid Waste Engineer Relationship Specialty Start Date End Date Alda Nelson MD [address] [place] [address] [place] [phone] PCP - General Family Medicine 11/14/23 documented as of this encounter
--- OUTSIDE RECORDS SUMMARY | 2023-12-08 12:54 | External Medical Summary | Summary of Care ---
Author Name Unknown Organization [facility] Address [address] [place] [address] Phone [phone] Care Team Providers Care Associate Team Physician Name Role Phone Adore Khan MD Primary Care Prov ider Encounter Details Date Type Department Care Team (Late st Contact Info) Description 11/24/2023 Orders Only Family Medicine [address] [phone] Adore Khan MD [address] [place], [place] [address] [phone] Allergies No known active allergiesdocumented as of this encounter (statuses as of 11/24/2023) Medications Medication Sig Dispensed Refills Start Date End Date Status Acetaminophen 500 MG Oral Tablet Take 1 Tablet by mouth every 6 hours as needed for Pain. 30 Tab 0 06/08/2015 Active RA Aspirin EC 81 MG Oral Tablet Delayed Release (aspirin enteric coated) take 1 tablet by mouth once daily 100 Tab 1 10/14/2020 Active Ramipril 5 MG Oral Capsule (Altace)Indications: Primary hypertension,Atheros clerosis of [place] coronary artery of [place] heart without angina pectoris TAKE 1 CAPSULE BY MOUTH DAILY BEFORE BEDTIME 90 Capsule 1 02/14/2023 Active Ipratropium-Albutero l 0.5-2.5 (3) MG/3ML Inhalation Solution (Duoneb)Indications: COPD exacerbation (HCC) Inhale 3 mL via nebulizer every 6 hours as needed for Cough, Shortness of Breath or Wheezing. 120 mL 0 03/16/2023 Active Albuterol Sulfate (2.5 MG/3ML) 0.083% Inhalation Nebulization Solution (Proventil)Indicatio ns:COPD, group D, by GOLD 2017 classification ([facility]) Inhale 1 Vial via nebulizer every 4 hours as needed for Wheezing or Shortness of Breath. 120 mL 2 03/16/2023 Active Additional Information Patient not taking.Reported on 11/14/2023 DULoxetine HCl 60 MG Oral Capsule Delayed Release Particles (Cymbalta)Indication s:Chronic foot pain, right take 1 capsule by mouth every morning DO NOT CRUSH, CHEW, AND/OR DIVIDE 90 Capsule 1 05/17/2023 Active Atorvastatin Calcium 80 MG Oral Tablet (Lipitor)Indications :Atherosclerosis of [place] coronary artery of [place] heart without angina pectoris,Dyslipidemi a, goal LDL below 100 TAKE ONE TABLET BY MOUTH AT BEDTIME 90 Tablet 0 09/01/2023 Active Pantoprazole Sodium 40 MG Oral Tablet Delayed Release (Protonix)Indication s:Epigastric pain TAKE ONE TABLET BY MOUTH IN THE MORNING 30 MINUTES BEFORE FIRST MEAL OF THE DAY 90 Tablet 1 09/01/2023 Active Metoprolol Tartrate 25 MG Oral Tablet (Lopressor)Indicatio ns:Primary hypertension TAKE ONE TABLET BY MOUTH TWICE DAILY 180 Tablet 1 09/22/2023 Active Nortriptyline HCl 50 MG Oral Capsule (Pamelor)Indications :Hereditary and idiopathic peripheral neuropathy 2 at bedtime 180 Capsule 1 10/02/2023 Active Trelegy Ellipta 100-62.5-25 MCG/ACT Aerosol Powder Breath Activated (Fluticasone-Umeclid inium-Vilanterol)Ind ications:COPD, severity to be determined ([facility]) Inhale 1 Puff by mouth in the morning. 180 Each 3 10/02/2023 Active Baclofen 10 MG Oral Tablet (Lioresal)Indication s:Hip pain, right Take 1 Tablet by mouth at bedtime as needed for Pain, Moderate or Muscle spasms. 20 Tablet 1 11/14/2023 Active documented as of this encounter (statuses as of 11/24/2023) Active Problems Problem Noted Date Diagnosed Date Hereditary and idiopathic peripheral neuropathy 11/14/2023 Gastro-esophageal [...] ase with esophagitis without hemorrhage Atherosclerosis of [place] co ronary artery of [place] heart without angina pectoris Pulmonary nodules Adrenal adenoma Persistent insomnia Morbid obesity with BMI of 40.0-44.9, adult documented as of this encounter (statuses as of 11/24/2023) Resolved Problems Problem Noted Date Diagnosed Date [...] as of this encounter (statuses as of 11/24/2023) Immunizations Name Administration Dates Next Due COVID-19 [...] on file documented as of this encounter Plan of Treatment Upcoming Encounters Date Type Department Care Team (Late st Contact Info) Description 12/21/2023 9:00 AM EDT Imaging Radiology [address] [place] [address] 01/16/2024 11:20 AM EDT Office Visit Sleep Disorders Ctr [facility] [address] [place] [phone] Maritza Florian, [address] [place] [address] 05/14/2024 11:20 AM EDT Office Visit Family Medicine [address] [place] [phone] Adore Khan MD [address] [place] [address] [place] [address] Health Maintenance Due Date Last Done Comments Alpha-1 Antitrypsin 1982 Hepatitis B (1 of 3 - 19+ 3-dose series) 1983 COLONOSCOPY-EVERY 5 YRS AGES 18-100 06/10/2019 06/10/2014, 06/10/2014, 03/01/2012, Additional history exists Depression Screening 03/23/2021 03/23/2020 DISCUSS TOBACCO CESSATION (REFER TO SMARTSET #4116) 01/14/2023 01/14/2022 COVID-19 Vaccine ( - 2022- season) 2023 04/07/2021, 03/12/2021 Influenza Vaccine (FLU shot) (#1) 2023 08/22/2017 (Refused) Mammogram 12/20/2023 12/19/2022, 0411/2022, 12/29/2020, Additional history exists Zoster Vaccines (2 of 2) 01/09/2024 11/14/2023 O2 ASSESSMENT COMPLETED IN PAST YEAR FOR COPD 11/14/2024 11/14/2023 GFR 11/15/2024 11/15/2023, 04/20, 05/17/2023, Additional history exists Albumin/Creatinine Ratio 12/28/2024 12/28/2021, 09/19 Diabetes Screening 11/15/2026 11/15/2023, 0 11/15/2023, 05/18/2023, Additional history exists DTaP,Tdap,and Td Vaccines (3 - Td or Tdap) 12/29/2031 12/28/2021, 05/20/2010 LUNG CANCER SCREENING - USE SMARTSET [id number] Completed 01/25/2022, 06/15/2015 Pneumococcal Vaccine: Pediatrics (0 [...] Not on filedocumented as of this encounter Procedures Procedure Name Priority Date/Time Associated Diagnosis Comments CBC Routine 11/23/2023 documented in this encounter Results * CBC WITH WBC DIFFERENTIAL (11/23/2023) HEMOGLOBIN-OUTS [facility] 12.8 12.0 - 16.0 GM/DL OUTSIDE LAB (SEE SCANNED REPORT) Blood Venous blood specimen / Unknown 11/23/2023 Dona Andujar PA-C LAB BLOOD ORDERA BLES OUTSIDE LAB (SEE SCANNED REPORT) documented in this encounter Care Teams Associate Team Physician Relationship Specialty Start Date End Date Adore Khan MD [address] [place] [address] [place] [phone] PCP - General Family Medicine 11/14/23 documented as of this encounter
--- OUTSIDE RECORDS SUMMARY | 2023-12-08 12:54 | External Medical Summary | Summary of Care ---
Author Name Unknown Organization [facility] Address [address] [place] [address] Phone [phone] Care Team Providers Care Hazardous Materials Analyst Name Role Phone Adore Khan MD Primary Care Prov ider Encounter Details Date Type Department Care Team ([facility] st Contact Info) Description 11/23/2023 Result Scan Unspecified Department <No scans attached> Allergies No known active allergiesdocumented as of [...] Oral Capsule (Altace)Indications: Primary hypertension,Atheros clerosis of [place] coronary artery of [place] heart without angina pectoris TAKE 1 CAPSULE [...] ns:COPD, group D, by GOLD 2017 classification (HCC) Inhale 1 Vial via nebulizer every 4 [...] 80 MG Oral Tablet (Lipitor)Indications :Atherosclerosis of [place] coronary artery of [place] heart without angina pectoris,Dyslipidemi a, goal LDL [...] (Fluticasone-Umeclid inium-Vilanterol)Ind ications:COPD, severity to be determined (HCC) Inhale 1 Puff by mouth in the [...] ase with esophagitis without hemorrhage Atherosclerosis of [place] co ronary artery of [place] heart without angina pectoris Pulmonary nodules Adrenal [...] Description 12/21/2023 9:00 AM EDT Imaging Radiology [address] [place] [address] 01/16/2024 11:20 AM EDT [facility] [place] [phone] Maritza Florian, [address] [place] [address] 05/14/2024 11:20 AM EDT Office Visit Family Medicine [address] [place] [phone] Adore Khan MD [address] [place] [address] [place] [address] Health Maintenance Due Date Last Done Comments Alpha-1 Antitrypsin 1982 Hepatitis B (1 of 3 - 19+ 3-dose series) 1983 COLONOSCOPY-EVERY 5 YRS AGES 18-100 06/10/2019 06/10/2014, 06/10/2014, 03/01/2012, Additional history exists Depression Screening 03/23/2021 03/23/2020 DISCUSS TOBACCO CESSATION (REFER TO SMARTSET #8519) 01/14/2023 01/14/2022 COVID-19 Vaccine (3 - 2022-24 [...] 05/20/2010 LUNG CANCER SCREENING - USE SMARTSET [id number] Completed 01/25/2022, 06/15/2015 Pneumococcal Vaccine: Pediatrics (0 [...] Procedure Name Priority Date/Time Associated Diagnosis Comments OUTSIDE LAB RESULTS 11/23/2023 documented in this encounter Results * OUTSIDE LAB RESULTS (11/23/2023) 11/23/2023 No Physician Data Unknown LABORATORY documented in this encounter Care Teams Hazardous Materials Analyst Relationship Specialty Start Date End Date Adore Khan MD [address] [place] [address] [place] [phone] PCP - General Family Medicine 11/14/23 documented as of this encounter
--- OUTSIDE RECORDS SUMMARY | 2023-12-08 12:55 | External Medical Summary | Summary of Care ---
Author Name Unknown Organization [facility] Address [address] [place] [address] Phone [phone] Care Team Providers Care Attending Urologist Name Role Phone Chris Draper MD Primary Care Provider Encounter Details Date Type Department Care Team (Late st Contact Info) Description 09/22/2023 Orders Only Family Medicine [address] [phone] Chris Draper MD [address] [place] [phone] Allergies No known active allergiesdocumented as of this encounter (statuses as of 09/22/2023) Medications Medication Sig Dispensed Refills Start Date End Date Status Acetaminophen 500 MG Oral Tablet Take 1 Tablet by mouth every 6 hours as needed for Pain. 30 Tab 0 06/08/2015 Active RA Aspirin EC 81 MG Oral Tablet Delayed Release (aspirin enteric coated) take 1 tablet by mouth once daily 100 Tab 1 10/14/2020 Active Trelegy Ellipta 100-62.5-25 MCG/ACT Aerosol Powder Breath Activated (Fluticasone-Umeclidi nium-Vilanterol)Indic ations:COPD, severity to be determined (HCC) Inhale 1 Puff by mouth in the morning. 180 Each 3 08/31/2022 Active Nortriptyline HCl 50 MG Oral Capsule (Pamelor)Indications: Hereditary and idiopathic peripheral neuropathy 2 at bedtime 180 Capsule 1 12/05/2022 Active Metoprolol Tartrate 25 MG Oral Tablet (Lopressor)Indication s:Primary hypertension take 1 tablet by mouth twice a day 180 Tablet 1 01/24/2023 Active Ramipril 5 MG Oral Capsule (Altace)Indications:P rimary hypertension,Atherosc lerosis of [place] coronary artery of [place] heart without angina pectoris TAKE 1 CAPSULE BY MOUTH DAILY BEFORE BEDTIME 90 Capsule 1 02/14/2023 Active Ipratropium-Albuterol 0.5-2.5 (3) MG/3ML Inhalation Solution (Duoneb)Indications:C OPD exacerbation ([facility]) Inhale 3 mL via nebulizer every 6 hours as needed for Cough, Shortness of Breath or Wheezing. 120 mL 0 03/16/2023 Active Albuterol Sulfate (2.5 MG/3ML) 0.083% Inhalation Nebulization Solution (Proventil)Indication s:COPD, group D, by GOLD 2017 classification ([facility]) Inhale 1 Vial via nebulizer every 4 hours as needed for Wheezing or Shortness of Breath. 120 mL 2 03/16/2023 Active DULoxetine HCl 60 MG Oral Capsule Delayed Release Particles (Cymbalta)Indications :Chronic foot pain, right take 1 capsule by mouth every morning DO NOT CRUSH, CHEW, AND/OR DIVIDE 90 Capsule 1 05/17/2023 Active Atorvastatin Calcium 80 MG Oral Tablet (Lipitor)Indications: Atherosclerosis of [place] coronary artery of [place] heart without angina pectoris,Dyslipidemia , goal LDL below 100 TAKE ONE TABLET BY MOUTH AT BEDTIME 90 Tablet 0 09/01/2023 Active Pantoprazole Sodium 40 MG Oral Tablet Delayed Release (Protonix)Indications :Epigastric pain TAKE ONE TABLET BY MOUTH IN THE MORNING 30 MINUTES BEFORE FIRST MEAL OF THE DAY 90 Tablet 1 09/01/2023 Active documented as of this encounter (statuses as of 09/22/2023) Active Problems Problem Noted Date Diagnosed Date COPD, group D, by GOLD 2017 classification [...] ase with esophagitis without hemorrhage Atherosclerosis of [place] co ronary artery of [place] heart without angina pectoris Pulmonary nodules Adrenal adenoma Persistent insomnia Morbid obesity with BMI of 40.0-44.9, adult documented as of this encounter (statuses as of 09/22/2023) Resolved Problems Problem Noted Date Diagnosed Date [...] as of this encounter (statuses as of 09/22/2023) Immunizations Name Administration Dates Next Due COVID-19 mRNA, LNP-s, No Pre serve, 2-Dose Series (Moderna) 04/07/2021,03/12/2021 PPD 03/23/2011 Pneumococcal Conjugate Vaccine, 20-valent (Prevn ar20) 03/07/2022 Pneumococcal Polysaccharide PPV23 (Pneumovax) TDAP (age 10 and older)(Boostrix) 12/28/2021 TDAP (age 11 and older)(Adacel) 05/20/2010 documented as of this encounter Social History Tobacco Use Types Packs/Day Years Used Date Smoking Tobacco: Every Day Cigarettes 1.5 40 Started: 1978 Smokeless Tobacco: Never Alcohol Use Standard Drinks/Week Comments Yes 0 (1 standard drink = 0.6 oz pur e alcohol) occ PHQ-2 Answer Date Recorded PHQ-2 Score -1 06/07/2020 Hunger Vital Sign Answer Date Recorded Within the past 12 months, y ou worried that your food would run out before you got the money to buy more. Never true 11/29/19 23 Within the past 12 months, t he food you bought just didn't last and you didn't have money to get more. Never true 11/28/2022 Sex and Gender Information Value Date Recorded [...] Care Team (Late st Contact Info) Description 11/14/2023 1:40 PM EST Office Visit Family Medicine [address] [place] [address] Adore Khan MD [address] [place] [address] JUN Garcia [phone] Health Maintenance Due Date Last Done Comments Hepatitis B (1 of 3 - 3-dose series) 1965 Alpha-1 Antitrypsin 1982 Zoster Vaccines (1 of 2) 2014 COLONOSCOPY-EVERY 5 YRS AGES 18-100 06/10/2019 06/10/2014, 06/10/2014, 03/01/2012, Additional history exists Depression Screening 03/23/2021 03/23/2020 DISCUSS TOBACCO CESSATION (REFER TO SMARTSET #3291) 01/14/2023 01/14/2022 COVID-19 Vaccine ( season) 2023 04/07/2021, 03/12/2021 Influenza Vaccine (FLU shot) (#1) 2023 08/22/2017 (Refused) Mammogram 12/20/2023 12/19/2022, 12/17, 10/23/2019, Additional history exists O2 ASSESSMENT COMPLETED IN PAST YEAR FOR COPD 05/13/2024 05/13/2023 GFR 05/18/2024 05/18/2023, 04/20, 05/12/2022, Additional history exists Albumin/Creatinine Ratio 12/28/2024 12/28/2021, 09/19 Diabetes Screening 05/18/2026 05/18/2023, 0 05/17/2023, 05/12/2022, Additional history exists DTaP,Tdap,and Td Vaccines (3 - Td or Tdap) 12/29/2031 12/28/2021, 05/20/2010 LUNG CANCER SCREENING - USE SMARTSET 81518 Completed 01/25/2022, 06/15/2015 Pneumococcal Vaccine: Pediatrics (0 [...] Priority Date/Time Associated Diagnosis Comments CBC Routine 09/21/2023 documented in this encounter Results * CBC WITH WBC DIFFERENTIAL (09/21/2023) HEMOGLOBIN-OUTS [facility] 12.9 12.0 - 16.0 GM/DL OUTSIDE LAB (SEE SCANNED REPORT) Blood Venous blood specimen / Unknown 09/21/2023 Armando Covarrubias MD LAB BLOOD ORDERABLES OUTSIDE LAB (SEE SCANNED REPORT) documented in this encounter Care Teams Attending Urologist Relationship Specialty Start Date End Date Chris Draper MD [address] [place] [address] JUN Garcia [phone] PCP - General Family Medicine 06/23/15 documented as of this encounter
--- OUTSIDE RECORDS SUMMARY | 2023-12-08 12:55 | External Medical Summary | Summary of Care ---
Author Name Unknown Organization [facility] Address [address] [place] [address] Phone [phone] Care Team Providers Care Valet Attendant Name Role Phone Adore Khan MD Primary Care Prov ider Encounter Details Date Type Department Care Team ([facility] st Contact Info) Description 11/15/2023 Orders Only PATIENT PORTAL DO NOT DELETE THIS DEPT USED BY JUN DUMONT [id number] Allergies No known active allergiesdocumented as of this encounter (statuses as of 11/15/2023) Medications Medication Sig Dispensed Refills Start Date [...] Oral Capsule (Altace)Indications: Primary hypertension,Atheros clerosis of [place] coronary artery of [place] heart without angina pectoris TAKE 1 CAPSULE [...] 80 MG Oral Tablet (Lipitor)Indications :Atherosclerosis of [place] coronary artery of [place] heart without angina pectoris,Dyslipidemi a, goal LDL [...] (Fluticasone-Umeclid inium-Vilanterol)Ind ications:COPD, severity to be determined ([facility]) Inhale 1 Puff by mouth in the morning. 180 Each 3 10/02/2023 Active Baclofen 10 MG Oral Tablet (Lioresal)Indication s:Hip pain, right Take 1 Tablet by mouth at bedtime as needed for Pain, Moderate or Muscle spasms. 20 Tablet 1 11/14/2023 Active documented as of this encounter (statuses as of 11/15/2023) Active Problems Problem Noted Date Diagnosed Date [...] ase with esophagitis without hemorrhage Atherosclerosis of [place] co ronary artery of [place] heart without angina pectoris Pulmonary nodules Adrenal adenoma Persistent insomnia Morbid obesity with BMI of 40.0-44.9, adult documented as of this encounter (statuses as of 11/15/2023) Resolved Problems Problem Noted Date Diagnosed Date [...] as of this encounter (statuses as of 11/15/2023) Immunizations Name Administration Dates Next Due COVID-19 [...] Date Smoking Tobacco: Every Day Cigarettes 1.5 46.2 Started: 1978 Smokeless Tobacco: Never Alcohol Use [...] Care Team (Late st Contact Info) Description 05/14/2024 11:20 AM EDT Office Visit Family Medicine [address] [place] [address] Adore Khan MD [address] [place] [address] JUN Garcia [phone] Health Maintenance Due Date Last Done Comments Alpha-1 Antitrypsin 1982 Hepatitis B (1 of 3 - 19+ 3-dose series) 1983 COLONOSCOPY-EVERY 5 YRS AGES 18-100 06/10/2019 06/10/2014, 06/10/2014, 03/01/2012, Additional history exists Depression Screening 03/23/2021 03/23/2020 DISCUSS TOBACCO CESSATION (REFER TO SMARTSET #3291) 01/14/2023 01/14/2022 COVID-19 Vaccine (3 - season) 2023 04/07/2021, 03/12/2021 Influenza Vaccine (FLU shot) (#1) 2023 08/22/2017 (Refused) Mammogram 12/20/2023 12/19/2022, 04/0 11/2022, 12/29/2020, Additional history exists Zoster Vaccines (2 of 2) 01/09/2024 11/14/2023 GFR 05/18/2024 05/18/2023, 04/20, 05/12/2022, Additional history exists O2 ASSESSMENT COMPLETED IN PAST YEAR FOR COPD 11/14/2024 11/14/2023 Albumin/Creatinine Ratio 12/28/2024 12/28/2021, 09/19 Diabetes Screening 05/18/2026 05/18/2023, 0 05/17/2023, 05/12/2022, Additional history exists DTaP,Tdap,and Td Vaccines (3 - Td or Tdap) 12/29/2031 12/28/2021, 05/20/2010 LUNG CANCER SCREENING - USE SMARTSET 56211 Completed 01/25/2022, 06/15/2015 Pneumococcal Vaccine: Pediatrics (0 [...] filedocumented as of this encounter Care Teams Valet Attendant Relationship Specialty Start Date End Date Adore Khan MD [address] [place] [address] JUN Garcia [phone] PCP - General Family Medicine 11/14/23 documented as of this encounter
--- OUTSIDE RECORDS SUMMARY | 2023-12-08 12:55 | External Medical Summary | Summary of Care ---
Author Name Unknown Organization [facility] Address [address] [place] [address] Phone [phone] Care Team Providers Care Brick And Block Mason Name Role Phone Adore Khan MD Primary Care Prov ider Reason for Referral * Evaluate & Treat - Unlimited Visits (Within 10 days (routine)) - Authorized Specialty Diagnoses / Procedures Referred By Contac t Referred To Contact Sleep Medicine / Sleep Disorders Diagnoses Primary insomnia Daytime somnolence Adore Khan MD [address] [place] [address] JUN Garcia [id number] Referral ID Status Reason Start Date Expiration Date Visits Requested Visits Authorized [id number] Authorized Specialty Services Required 11/14/2023 2 2 Question Answer Referral Priority Within 10 days (routine) Where should this appointment be scheduled? [facility] SLEEP MED ADULT REFERRAL Insomnia/Parasomnia Reason for Visit * Reason Comments NEW PATIENT Get established Encounter Details Date Type Department Care Team (Latest Contact Info) Description 11/14/2023 1:40 PM EST Office Visit Family Medicine [address] [place] [phone] Adore Khan MD [address] [place] [address] JUN Garcia [phone] Need for shingles vaccine*; Hereditary and idiopathic peripheral neuropathy; Atherosclerosis of [place] coronary artery of [place] heart without angina pectoris; Gastroesophageal reflux disease, unspecified whether esophagitis present; COPD exacerbation (HCC); Primary hypertension; Tobacco use disorder; Morbid obesity with BMI of 40.0-44.9, adult ([facility]); COPD, group D, by GOLD 2017 classification ([facility]); Dyslipidemia, goal LDL below 100; Encounter for screening mammogram for breast cancer; Hip pain, right; Primary insomnia; Daytime somnolence Allergies No known active allergiesdocumented as of this encounter (statuses as of 11/14/2023) Medications Medication Sig Dispensed Refills Start Date [...] Oral Capsule (Altace)Indications: Primary hypertension,Atheros clerosis of [place] coronary artery of [place] heart without angina pectoris TAKE 1 CAPSULE BY MOUTH DAILY BEFORE BEDTIME 90 Capsule 1 02/14/2023 Active Ipratropium-Albutero l 0.5-2.5 (3) MG/3ML Inhalation Solution (Duoneb)Indications: COPD exacerbation ([facility]) Inhale 3 mL via nebulizer every 6 hours as needed for Cough, Shortness of Breath or Wheezing. 120 mL 0 03/16/2023 Active Albuterol Sulfate (2.5 MG/3ML) 0.083% Inhalation Nebulization Solution (Proventil)Indicatio ns:COPD, group D, by GOLD 2017 classification ([facility]) Inhale 1 Vial via nebulizer every [...] 80 MG Oral Tablet (Lipitor)Indications :Atherosclerosis of [place] coronary artery of [place] heart without angina pectoris,Dyslipidemi a, goal LDL [...] as of this encounter (statuses as of 11/14/2023) Active Problems Problem Noted Date Diagnosed Date [...] ase with esophagitis without hemorrhage Atherosclerosis of [place] co ronary artery of [place] heart without angina pectoris Pulmonary nodules Adrenal adenoma Persistent insomnia Morbid obesity with BMI of 40.0-44.9, adult documented as of this encounter (statuses as of 11/14/2023) Resolved Problems Problem Noted Date Diagnosed Date [...] as of this encounter (statuses as of 11/14/2023) Immunizations Name Administration Dates Next Due COVID-19 [...] 1.5 46.2 Started: 1978 Smokeless Tobacco: Never Tobacco Cessation:Ready to Q uit: Not Asked; Counseling Given: Not Answered Alcohol Use Standard Drinks/Week Comments Yes 0 [...] on file documented as of this encounter Last Filed Vital Signs Vital Sign Reading Time Taken Comments Blood Pressure 130/70 11/14/2023 1:29 PM EST Pulse 89 11/14/2023 1:29 PM EST Temperature 36.2 C (97.1 F) 11/14/2023 1:29 PM ES T Respiratory Rate - - Oxygen Saturation 98% 11/14/2023 1:29 PM EST Inhaled Oxygen Concentration - - Weight 120.2 kg (265 lb) 11/14/2023 1:29 PM EST Height - - Body Mass Index 45.49 05/13/2023 9:23 AM EDT documented in this encounter Progress Notes * Lionel French, Adore Leyva MD - 11/14/2023 1:37 PM EST Subjective Kristi Vee is a 58 year old female. Chief Complaint Patient presents with NEW PATIENT Get established HPI: Here to get established. Leg pain/ right hip pain. Xray from 2014 demonstrated OA of right hip. HTN. On metoprolol and ramipril. Lipids. Last LDL was done 2021. On Atorvastatin 80mg. \\ COPD. Using Trelegy inhaler. Peripheral neuropathy. On nortriptyline 50mg. GERD. On pantoprazole 40mg. PMH: Patient Active Problem List Diagnosis Code Primary hypertension I10 Tobacco use disorder F17.200 Hiatal hernia K44.9 Gastroesophageal reflux disease with esophagitis without hemorrhage K21.00 Dyslipidemia, goal LDL below 100 E78.5 Atherosclerosis of [place] coronary artery of [place] heart without angina pectoris I25.10 Pulmonary nodules R91.8 Adrenal adenoma D35.00 Persistent insomnia G47.00 Tinea versicolor B36.0 Gastritis K29.70 Folic acid deficiency E53.8 Morbid obesity with BMI of 40.0-44.9, adult ([facility]) E66.01, Z68.41 Lumbosacral radiculopathy at L4 M54.17 Polycythemia secondary to smoking D75.1 Pulmonary emphysema ([facility]) J43.9 Calcaneal spur of right foot M77.31 Tarsal tunnel syndrome of right side G57.51 COPD, group D, by GOLD 2017 classification ([facility]) J44.9 Hereditary and idiopathic peripheral neuropathy G60.9 Gastro-esophageal reflux disease without esophagitis K21.9 COPD exacerbation ([facility]) J44.1 Current Outpatient Medications Medication Sig Dispense Refill RA Aspirin EC 81 MG Oral Tablet Delayed Release (aspirin enteric coated) take 1 tablet by mouth once daily 100 Tab 1 Ramipril 5 MG Oral Capsule (Altace) TAKE 1 CAPSULE BY MOUTH DAILY BEFORE BEDTIME 90 Capsule 1 Ipratropium-Albuterol 0.5-2.5 (3) MG/3ML Inhalation Solution (Duoneb) Inhale 3 mL via nebulizer every 6 hours as needed for Cough, Shortness of Breath or Wheezing. 120 mL 0 DULoxetine HCl 60 MG Oral Capsule Delayed Release Particles (Cymbalta) take 1 capsule by mouth every morning DO NOT CRUSH, CHEW, AND/OR DIVIDE 90 Capsule 1 Atorvastatin Calcium 80 MG Oral Tablet (Lipitor) TAKE ONE TABLET BY MOUTH AT BEDTIME 90 Tablet 0 Pantoprazole Sodium 40 MG Oral Tablet Delayed Release (Protonix) TAKE ONE TABLET BY MOUTH IN THE MORNING 30 MINUTES BEFORE FIRST MEAL OF THE DAY 90 Tablet 1 Metoprolol Tartrate 25 MG Oral Tablet (Lopressor) TAKE ONE TABLET BY MOUTH TWICE DAILY 180 Tablet 1 Nortriptyline HCl 50 MG Oral Capsule (Pamelor) 2 at bedtime 180 Capsule 1 Trelegy Ellipta 100-62.5-25 MCG/ACT Aerosol Powder Breath Activated (Jgdimuregvc-Hircvtwslsag-Gjldopzavj) Inhale 1 Puff by mouth in the morning. 180 Each 3 Baclofen 10 MG Oral Tablet (Lioresal) Take 1 Tablet by mouth at bedtime as needed for Pain, Moderate or Muscle spasms. 20 Tablet 1 Acetaminophen 500 MG Oral Tablet Take 1 Tablet by mouth every 6 hours as needed for Pain. 30 Tab 0 Albuterol Sulfate (2.5 MG/3ML) 0.083% Inhalation Nebulization Solution (Proventil) Inhale 1 Vial via nebulizer every 4 hours as needed for Wheezing or Shortness of Breath. (Patient not taking: Reported on 11/14/2023) 120 mL 2 No current facility-administered medications for this visit. Review of patient's allergies indicates: No Known Allergies Objective BP 130/70 | Pulse 89 | Temp 36.2 C (97.1 F) (Tympanic) | Wt 120.2 kg (265 lb) | LMP 01/27/2013 | SpO2 98% | BMI 45.49 kg/m | BSA 2.33 m Physical Exam Constitutional: Appearance: Normal appearance. She is obese. Neurological: Mental Status: She is alert. ASSESSMENT/PLAN: Need for shingles vaccine (Primary) - ZOSTER VACCINE RECOMB, 2 DOSE, IM (SHINGRIX) Hereditary and idiopathic peripheral neuropathy Atherosclerosis of [place] coronary artery of [place] heart without angina pectoris - COMPREHENSIVE METABOLIC PANEL; Future; Expected date: 11/14/2023 - LIPID PANEL WITH DIRECT LDL IF TG IS HIGH; Future; Expected date: 11/14/2023 - HEMOGLOBIN A1C; Future; Expected date: 11/14/2023 Gastroesophageal reflux disease, unspecified whether esophagitis present - COMPREHENSIVE METABOLIC PANEL; Future; Expected date: 11/14/2023 COPD exacerbation (HCC) Primary hypertension - HEMOGLOBIN A1C; Future; Expected date: 11/14/2023 Tobacco use disorder Morbid obesity with BMI of 40.0-44.9, adult (HCC) COPD, group D, by GOLD 2017 classification (HCC) Dyslipidemia, goal LDL below 100 - HEMOGLOBIN A1C; Future; Expected date: 11/14/2023 Encounter for screening mammogram for breast cancer - MAMMOGRAM SCREENING TIM BILATERAL; Future; Expected date: 12/21/2023 Hip pain, right - XR HIP UNILAT 2-3 VIEWS INCLUDING AP PELVIS - Baclofen 10 MG Oral Tablet (Lioresal); Take 1 Tablet by mouth at bedtime as needed for Pain, Moderate or Muscle spasms. Primary insomnia - SLEEP MEDICINE REFERRAL OP Daytime somnolence - SLEEP MEDICINE REFERRAL OP Follow Up: Return in about 6 months (around 05/14/2024) for Return with Physician. | For: Return with Physician | Check-out note: Shingles vaccine in 2- 6 mo she can get on Nurse scheduled or when comes back to see PCP Adore Alfredo MD * Sarah Ralph CRNP Student - 11/14/2023 1:30 PM EST Images from the original note were not included. History of Present Illness Kristi Vee is a 58 year old female that presents for NEW PATIENT (Get established ) COPD - Trelegy , Duoneb, proventil - Feels this is helping her. She gets short of breath walking, avoids steps as much as possible HTN- Lopressor BP today was 130/70. Has BP cuff at home and takes it occasionally. She thinks this is normal range. Lipid - lipitor - tolerating well LDL 08/2015 89 Chronic Rt foot pain - duloxetine , nortriptyline , cymbalta - she reports this has been an issue for many years. No new changes. Rt hip pain is worse - Xray from 2014 showed OA Left hip also is painful but not as bad. For the last few weeks pain on right side has gotten worse. Starts in lower back , through groin and down the inside of the leg to the knee. Has tried physical therapy in the past and it was not helpful. She is not interested in trying PT again. High BMI - has a hard time exercising because of pain; offered dietary consult or working with a manager pool but she is not interested in trying that. Physical Exam Vitals: 11/14/23 1329 Temp: 36.2 C (97.1 F) Pulse: 89 SpO2: 98% BP: 130/70 Physical Exam Constitutional: Appearance: Normal appearance. She is obese. HENT: Head: Normocephalic and atraumatic. Mouth/Throat: Mouth: Mucous membranes are moist. Pharynx: Oropharynx is clear. Cardiovascular: Rate and Rhythm: Normal rate and regular rhythm. Pulses: Normal pulses. Heart sounds: Normal heart sounds. Pulmonary: Effort: No respiratory distress. Breath sounds: Wheezing present. Abdominal: General: Bowel sounds are normal. Musculoskeletal: General: Swelling and tenderness present. Cervical back: Normal range of motion and neck supple. Comments: Point tenderness at Right posterior iliac crest, pain with straight leg test in thigh andlower back. Skin: General: Skin is warm and dry. Neurological: General: No focal deficit present. Mental Status: She is alert and oriented to person, place, and time. Psychiatric: Mood and Affect: Mood normal. Behavior: Behavior normal. Thought Content: Thought content normal. I have reviewed the following results: BMP results Recent Labs Units 05/18/23 0000 05/17/23 1428 05/12/22 0000 03/06/22 0000 12/28/21 1408 SODIUM - [facility] mmol/L -- 141 -- -- 137 POTASSIUM - [facility] mmol/L -- 4.4 -- -- 4.3 POTASSIUM-OUTSIDE LAB MMOL/L 4.7 -- 4.0 < > -- CHLORIDE - [facility] mmol/L -- 101 -- -- 99 CO2 - [facility] mmol/L -- 29 -- -- 28 CREATININE - [facility] mg/dL -- 0.8 -- -- 1.0 CREATININE-OUTSIDE LAB MG/DL 0.89 -- 0.83 < > -- BUN - [facility] mg/dL -- 7 -- -- 11 < > = values in this interval not displayed. Lipid panel results Recent Labs Units 12/28/21 1408 CHOLESTEROL - [facility] mg/dL 157 HDL CHOLESTEROL - [facility] mg/dL 52 TRIGLYCERIDES - [facility] mg/dL 206* HbA1c results No results for input(s): "HGBA1C" in the last 55633 hours. Assessment and Plan Need for shingles vaccine - ZOSTER VACCINE RECOMB, 2 DOSE, IM (SHINGRIX) Hereditary and idiopathic peripheral neuropathy Atherosclerosis of [place] coronary artery of [place] heart without angina pectoris Gastroesophageal reflux disease, unspecified whether esophagitis present COPD exacerbation ([facility]) Primary hypertension Tobacco use disorder Morbid obesity with BMI of 40.0-44.9, adult ([facility]) COPD, group D, by GOLD 2017 classification ([facility]) Dyslipidemia, goal LDL below 100 Xray - Rt hip - consider ortho consultation Baclofen - for pain and see if it improves quality of sleep Labs: A1c, CMP. Lipid panel Sleep study Wrap-Up Follow Up: Return in about 6 months (around 05/14/2024) for Return with Physician. | For: Return with Physician | Check-out note: Shingles vaccine in 2- 6 mo she can get on Nurse scheduled or when comes back to see PCP Time: I spent a total of 30-39 minutes (exact time 35 mins) on the date of service in preparation, delivery, and documentation of the care provided to Kristi Vee excluding any time spent in the performance of separately billed services. Wrap-Up Time: I spent a total of 30-39 minutes (exact time 35 mins) on the date of service in preparation, delivery, and documentation of the care provided to Kristi Vee excluding any time spent in the performance of separately billed services. I have discussed the patient's management with the medical trainee and agree with the note. Please refer to the documented findings and plan of care. This patient's visit today consisted of an evaluation [facility]. I was present with the resident during the history and exam and confirm the findings. Adore Alfredo MD documented in this encounter Nursing Notes * Brian Sauer LPN - 11/14/2023 1:23 PM EST Chief Complaint Patient presents with NEW PATIENT Get established Pain shawn legs and pain right hip / groin area Duration- Wk's Tx: Tylenol/ Ibuprofen Only happens when at rest and Work at Night The patient has been properly identified by confirmation of name and date of . documented in this encounter Miscellaneous Notes * Pt Handout (on AVS) - Adore Khan MD - 11/14/2023 2:31 PM EST Images from the original note were not included. [id number] Hip Rotation (Flexibility) These instructions are for the right hip. Switch sides for your left hip. 1. Lie on your back on the floor. Keep your knees bent and feet flat on the floor. Don?t press yourneck or lower back to the floor. 2. Rest your right ankle on your left knee. 3. Place a towel around the back of your left thigh. Pull on the ends of the towel to pull your left knee toward your chest. Feel the stretch in your buttocks. 4. Hold for 30 to 60 seconds. Lower your leg back down. 5. Repeat 2 to 3 times, or as instructed. 6. Switch legs and repeat. 7. Do this 3 times a day, or as instructed. Last Reviewed Date: 03/18/202219994804-5887 [employer]. All rights reserved. This information is not intended as a substitute for professional medical care. Always follow your healthcare professional's instructions. * Pt Handout (on AVS) - Adore Khan MD - 11/14/2023 2:30 PM EST [id number] Sciatica Sciatica is a condition that causes pain in the low back that spreads down into the buttock, hip, and leg. Sometimes the leg pain can happen without any back pain. Sciatica happens when a spinal nerve is irritated or has pressure put on it as it comes out of the spinal canal in the low back. This most often happens when a bulge or rupture of a nearby spinal disk presses on the nerve. Sciatica canalso be caused by a narrowing of the spinal canal (spinal stenosis) or spasm of the muscle in the buttocks that the sciatic nerve passes through (piriformis muscle). Sciatica may also be called lumbar radiculopathy. Sciatica may start after a sudden twisting or bending force, such as in a car accident. Or it can happen after a simple awkward movement. In either case, muscle spasm often also happens. Muscle spasmmakes the pain worse. A healthcare provider makes a diagnosis of sciatica from your symptoms and a physical exam. Unless you had an injury from a car accident or fall, you usually won?t have X-rays taken at this time. This is because the nerves and disks in your back can?t be seen on an X-ray. If the provider suspects acompressed nerve based on your history or exam, you'll need to schedule an MRI scan. Nerve conductions studies and electromyography are nerve tests that can also help find the cause of nerve pain. Signs of a compressed nerve include loss of strength or reflexes in a leg. Most sciatica gets better with medicine, exercise, and physical therapy. If your symptoms continue after medical treatment, you may need surgery or shots (injections) to your low back. This will depend on how severe your symptoms are. Home care Follow these tips when caring for yourself at home: As soon as possible, start sitting up or walking. This will help you prevent problems that come from staying in bed for long periods. When in bed, try to find a position that is comfortable. A firm mattress is best. Try lying flaton your back with pillows under your knees. You can also try lying on your side with your knees bent up toward your chest and a pillow between your knees. Don't sit for long periods. This puts more stress on your low back than standing or walking. Use heat from a hot shower, hot bath, or heating pad to help ease pain. Massage can also help. You can also try using an ice pack. You can make your own ice pack by putting ice cubes in a plastic bag that seals at the top. Wrap the bag in a thin towel. Try both heat and cold to see which works best. Use the method that feels best for 20 minutes several times a day. You may use acetaminophen or ibuprofen to ease pain, unless another pain medicine was prescribed. Note: If you have chronic liver or kidney disease, talk with your healthcare provider before taking these medicines. Also, talk with your provider if you?ve had a stomach ulcer or digestive tract bleeding. Use safe lifting methods. Don?t lift anything heavier than advised until all of the pain is gone. Follow-up care Follow up with your healthcare provider, or as advised. You may need physical therapy or more tests. If X-rays were taken, a radiologist will look at them. You'll be told of any new findings that may affect your care. When to get medical care Call your healthcare provider right away if any of these occur: Pain gets worse even after taking prescribed medicine Weakness or numbness in 1 or both legs or hips Numbness in your groin or genital area You can?t control your bowel or bladder Fever 100.4F (38C) or higher, or as advised by your provider Redness or swelling over your back or spine Last Reviewed Date: 01/16/202219994636-5369 [employer]. All rights reserved. This information is not intended as a substitute for professional medical care. Always follow your healthcare professional's instructions. documented in this encounter Plan of Treatment Upcoming Encounters Date Type Department Care Team (Late st Contact Info) Description 05/14/2024 11:20 AM EDT Office Visit Family Medicine [address] [place] [phone] Adore Khan MD [address] [place] [address] JUN Garcia [phone] Scheduled Orders Name Type Priority Associated Diagnoses Orde r Schedule MAMMOGRAM SCREENING TIM BILATERAL Medical Imaging Routine Encounter for screening mammogram for breast cancer Expected: 12/21/2023, Expires: 12/12/2024 COMPREHENSIVE METABOLIC PANEL Lab Routine Atherosclerosis of [place] coronary artery of [place] heart without angina pectoris Gastroesophageal reflux disease, unspecified whether esophagitis present Expected: 11/14/2023 (Approximate), Expires: 11/13/2024 LIPID PANEL WITH DIRECT LDL IF TG IS HIGH Lab Routine Atherosclerosis of [place] coronary artery of [place] heart without angina pectoris Expected: 11/14/2023, Expires: 11/14/2024 HEMOGLOBIN A1C Lab Routine Atherosclerosis of [place] coronary artery of [place] heart without angina pectoris Primary hypertension Dyslipidemia, goal LDL below 100 Expected: 11/14/2023 (Approximate), Expires: 11/13/2024 XR HIP UNILAT 2-3 VIEWS INCLUDING AP PELVIS Medical Imaging Routine Hip pain, right Ordered: 11/14/2023 Scheduled Referrals Name Type Priority Associated Diagnoses Orde r Schedule SLEEP MEDICINE REFERRAL OP Referral Within 10 days (routine) Primary insomnia Daytime somnolence Ordered: 11/14/2023 Health Maintenance Due Date Last Done Comments Alpha-1 Antitrypsin 1982 Hepatitis B (1 of 3 - 19+ 3-dose series) 1983 COLONOSCOPY-EVERY 5 YRS AGES 18-100 06/10/2019 06/10/2014, 06/10/2014, 03/01/2012, Additional history exists Depression Screening 03/23/2021 03/23/2020 DISCUSS TOBACCO CESSATION (REFER TO SMARTSET #[id number]) 01/14/2023 01/14/2022 COVID-19 Vaccine ( season) 2023 04/07/2021, 03/12/2021 Influenza Vaccine (FLU shot) (#1) 2023 08/22/2017 (Refused) Mammogram 12/20/2023 12/19/2022, 04/11/2022, 12/29/2020, Additional history exists Zoster Vaccines (2 of 2) 01/09/2024 11/14/2023 O2 ASSESSMENT COMPLETED IN PAST YEAR FOR COPD 05/13/2024 05/13/2023 GFR 05/18/2024 05/18/2023, 04/20, 05/12/2022, Additional history exists Albumin/Creatinine Ratio 12/28/2024 12/28/2021, 09/19 Diabetes Screening 05/18/2026 05/18/2023, 0 05/17/2023, 05/12/2022, Additional history exists DTaP,Tdap,and Td Vaccines (3 - Td or Tdap) 12/29/2031 12/28/2021, 05/20/2010 LUNG CANCER SCREENING - USE SMARTSET 19941 Completed 01/25/2022, 06/15/2015 Pneumococcal Vaccine: Pediatrics (0 [...] as of this encounter Visit Diagnoses Diagnosis Need for shingles vaccine- Primary Need for prophylactic vaccination and inoculation against other viral diseases Hereditary and idiopathic peripheral neuropathy Unspecified hereditary and idiopathic peripheral neuropathy Atherosclerosis of [place] coronary artery of [place] heart without angina pectoris Gastroesophageal reflux disease, unspecified whether esophagitis present COPD exacerbation (HCC) Obstructive chronic bronchitis with exacerbation Primary hypertension Unspecified essential hypertension Tobacco use disorder Morbid obesity with BMI of 40.0-44.9, adult (HCC) Morbid obesity COPD, group D, by GOLD 2017 classification ([facility]) Dyslipidemia, goal LDL below 100 Other and unspecified hyperlipidemia Encounter for screening mammogram for breast cancer Hip pain, right Pain in joint, pelvic region and thigh Primary insomnia Persistent disorder of initiating or maintaining sleep Daytime somnolence Hypersomnia, unspecified documented in this encounter Care Teams Brick And Block Mason Relationship Specialty Start Date End Date Adore Khan MD [address] [place] [address] JUN Garcia [phone] PCP - General Family Medicine 11/14/23 documented as of this encounter
--- OUTSIDE RECORDS SUMMARY | 2023-12-08 12:55 | External Medical Summary | Summary of Care ---
Author Name Unknown Organization [facility] Address [address] [place] [address] Phone [phone] Care Team Providers Care Yarn Mercerizer Operator Name Role Phone Adore Khan MD Primary Care Prov ider Encounter Details Date Type Department Care Team ([facility] st Contact Info) Description 11/16/2023 Telephone Family Medicine [address] [address] Adore Khan MD [address] [place] [address] [place] [id number] Allergies No known active allergiesdocumented as of this encounter (statuses as of 11/17/2023) Medications Medication Sig Dispensed Refills Start Date [...] Oral Capsule (Altace)Indications: Primary hypertension,Atheros clerosis of [place] coronary artery of [place] heart without angina pectoris TAKE 1 CAPSULE [...] ns:COPD, group D, by GOLD 2017 classification ([facility]) Inhale 1 Vial via nebulizer every [...] 80 MG Oral Tablet (Lipitor)Indications :Atherosclerosis of [place] coronary artery of [place] heart without angina pectoris,Dyslipidemi a, goal LDL [...] (Fluticasone-Umeclid inium-Vilanterol)Ind ications:COPD, severity to be determined ([facility]) Inhale 1 Puff by mouth in the morning. 180 Each 3 10/02/2023 Active Baclofen 10 MG Oral Tablet (Lioresal)Indication s:Hip pain, right Take 1 Tablet by mouth at bedtime as needed for Pain, Moderate or Muscle spasms. 20 Tablet 1 11/14/2023 Active documented as of this encounter (statuses as of 11/17/2023) Active Problems Problem Noted Date Diagnosed Date [...] ase with esophagitis without hemorrhage Atherosclerosis of [place] co ronary artery of [place] heart without angina pectoris Pulmonary nodules Adrenal adenoma Persistent insomnia Morbid obesity with BMI of 40.0-44.9, adult documented as of this encounter (statuses as of 11/17/2023) Resolved Problems Problem Noted Date Diagnosed Date [...] as of this encounter (statuses as of 11/17/2023) Immunizations Name Administration Dates Next Due COVID-19 [...] encounter Miscellaneous Notes * Telephone Encounter - Adore Khan MD - 11/16/2023 6:54 PM EST Please let her know the 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 I would recommend Ortho consultation. Referral signed. Please let her know. documented in this encounter Plan of Treatment Upcoming Encounters Date Type Department Care Team (Late st Contact Info) Description 12/21/2023 9:00 AM EDT Imaging Radiology [address] [place] [phone] 01/16/2024 11:20 AM EDT Office Visit [facility] [address] [place] [phone] Maritza Florian, [address] [place] [phone] 05/14/2024 11:20 AM EDT Office Visit [address] [place] [address] Adore Khan MD [address] [place] [address] [place] [phone] Health Maintenance Due Date Last Done Comments Alpha-1 Antitrypsin 1982 Hepatitis B (1 of 3 - 19+ 3-dose series) 1983 COLONOSCOPY-EVERY 5 YRS AGES 18-100 06/10/2019 06/10/2014, 06/10/2014, 03/01/2012, Additional history exists Depression Screening 03/23/2021 03/23/2020 DISCUSS TOBACCO CESSATION (REFER TO SMARTSET #3291) 01/14/2023 01/14/2022 COVID-19 Vaccine ( - 2022- [...] 05/20/2010 LUNG CANCER SCREENING - USE SMARTSET 35801 Completed 01/25/2022, 06/15/2015 Pneumococcal Vaccine: Pediatrics (0 [...] filedocumented as of this encounter Care Teams Yarn Mercerizer Operator Relationship Specialty Start Date End Date Adore Khan MD [address] [place] [address] [place] [phone] PCP - General Family Medicine 11/14/23 documented as of this encounter
--- OUTSIDE RECORDS SUMMARY | 2023-12-08 12:55 | External Medical Summary | Summary of Care ---
Author Name Unknown Organization [facility] Address [address] [place] [address] Phone [phone] Care Team Providers Care Manager Target Name Role Phone Chris Draper MD Primary Care Provider [phone] Encounter Details Date Type Department Care Team (Late st Contact Info) Description 09/21/2023 Result Scan Unspecified Department <No scans attached> [...] Oral Capsule (Altace)Indications:P rimary hypertension,Atherosc lerosis of [place] coronary artery of [place] heart without angina pectoris TAKE 1 CAPSULE BY MOUTH DAILY BEFORE BEDTIME 90 Capsule 1 02/14/2023 Active Ipratropium-Albuterol 0.5-2.5 (3) MG/3ML Inhalation Solution (Duoneb)Indications:C OPD exacerbation ([facility]) Inhale 3 mL via nebulizer every 6 hours as needed for Cough, Shortness of Breath or Wheezing. 120 mL 0 03/16/2023 Active Albuterol Sulfate (2.5 MG/3ML) 0.083% Inhalation Nebulization Solution (Proventil)Indication s:COPD, group D, by GOLD 2017 classification ([facility] [...] 80 MG Oral Tablet (Lipitor)Indications: Atherosclerosis of [place] coronary artery of [place] heart without angina pectoris,Dyslipidemia , goal LDL [...] ase with esophagitis without hemorrhage Atherosclerosis of [place] co ronary artery of [place] heart without angina pectoris Pulmonary nodules Adrenal [...] 1:40 PM EST Office Visit Family Medicine [address] [address] Adore Khan MD [address] [place] [address] [place] [phone] Health Maintenance Due Date Last Done Comments Hepatitis B (1 of 3 - 3-dose series) 1964 Alpha-1 Antitrypsin 1982 Zoster Vaccines (1 of 2) 2014 COLONOSCOPY-EVERY 5 YRS AGES 18-100 06/10/2019 06/10/2014, 06/10/2014, 03/01/2012, Additional history exists Depression Screening 03/23/2021 03/23/2020 DISCUSS TOBACCO CESSATION (REFER TO SMARTSET #3291) 01/14/2023 01/14/2022 COVID-19 Vaccine (2022- season) 2023 04/07/2021, 03/12/2021 Influenza Vaccine (FLU [...] 05/20/2010 LUNG CANCER SCREENING - USE SMARTSET 05407 Completed 01/25/2022, 06/15/2015 Pneumococcal Vaccine: Pediatrics (0 [...] Date/Time Associated Diagnosis Comments OUTSIDE LAB RESULTS 09/21/2023 documented in this encounter Results * OUTSIDE LAB RESULTS (09/21/2023) 09/21/2023 No Physician Data Unknown LABORATORY documented in this encounter Care Teams Manager Target Relationship Specialty Start Date End Date Chris Draper MD [address] [place] [address] [place] [phone] PCP - General Family Medicine 06/23/15 documented as of this encounter
--- OUTSIDE RECORDS SUMMARY | 2023-12-08 12:55 | External Medical Summary | Summary of Care ---
Author Name Unknown Organization [facility] Address [address] [place] [address] Phone [phone] Care Team Providers Care Petroleum Plant Operator Name Role Phone Ike Gu MD Primary Care Provider [phone] Reason for Visit * Reason Comments eRx-Medication Refill Encounter Details Date Type Department Care Team ([facility] st Contact Info) Description 09/01/2023 Refill Family Medicine [address] [address] Ike Gu MD [address] [place], [place] [address] [address] Atherosclerosis of [place] coronary artery of [place] heart without angina pectoris; Dyslipidemia, goal LDL below 100; Epigastric pain Allergies No known active allergiesdocumented as of this encounter (statuses as of 09/01/2023) Medications Medication Sig Dispensed Refills Start Date End Date Status Acetaminophen 500 MG Oral Tablet Take 1 Tablet by mouth every 6 hours as needed for Pain. 30 Tab 0 5 Active RA Aspirin EC 81 MG Oral Tablet Delayed Release (aspirin enteric coated) take 1 tablet by mouth once daily 100 Tab 1 1 Active Trelegy Ellipta 100-62.5-25 MCG/ACT Aerosol Powder Breath Activated (Fluticasone-Umecli dinium-Vilanterol)I ndications:COPD, severity to be determined (HCC) Inhale 1 Puff by mouth in the morning. 180 Each 3 2 Active Nortriptyline HCl 50 MG Oral Capsule (Pamelor)Indication s:Hereditary and idiopathic peripheral neuropathy 2 at bedtime 180 Capsule 1 3 Active Metoprolol Tartrate 25 MG Oral Tablet (Lopressor)Indicati ons:Primary hypertension take 1 tablet by mouth twice a day 180 Tablet 1 3 Active Ramipril 5 MG Oral Capsule (Altace)Indications :Primary hypertension,Athero sclerosis of [place] coronary artery of [place] heart without angina pectoris TAKE 1 CAPSULE BY MOUTH DAILY BEFORE BEDTIME 90 Capsule 1 3 Active Ipratropium-Albuter ol 0.5-2.5 (3) MG/3ML Inhalation Solution (Duoneb)Indications :COPD exacerbation ([facility]) Inhale 3 mL via nebulizer every 6 hours as needed for Cough, Shortness of Breath or Wheezing. 120 mL 0 3 Active Albuterol Sulfate (2.5 MG/3ML) 0.083% Inhalation Nebulization Solution (Proventil)Indicati ons:COPD, group D, by GOLD 2017 classification ([facility]) Inhale 1 Vial via nebulizer every 4 hours as needed for Wheezing or Shortness of Breath. 120 mL 2 3 Active DULoxetine HCl 60 MG Oral Capsule Delayed Release Particles (Cymbalta)Indicatio ns:Chronic foot pain, right take 1 capsule by mouth every morning DO NOT CRUSH, CHEW, AND/OR DIVIDE 90 Capsule 1 3 Active Atorvastatin Calcium 80 MG Oral Tablet (Lipitor)Indication s:Atherosclerosis of [place] coronary artery of [place] heart without angina pectoris,Dyslipidem ia, goal LDL below 100 TAKE ONE TABLET BY MOUTH AT BEDTIME 90 Tablet 0 3 Active Pantoprazole Sodium 40 MG Oral Tablet Delayed Release (Protonix)Indicatio ns:Epigastric pain TAKE ONE TABLET BY MOUTH IN THE MORNING 30 MINUTES BEFORE FIRST MEAL OF THE DAY 90 Tablet 1 3 Active Atorvastatin Calcium 80 MG Oral Tablet (Lipitor)Indication s:Atherosclerosis of [place] coronary artery of [place] heart without angina pectoris,Dyslipidem ia, goal LDL below 100 take one pill by mouth at bedtime 90 Tablet 1 3 09/01/20 23 Discontinued Pantoprazole Sodium 40 MG Oral Tablet Delayed Release (Protonix)Indicatio ns:Epigastric pain take 1 tablet by mouth every morning 30 MINUTES BEFORE FIRST MEAL OF THE DAY. DO NOT CRUSH, SPLIT OR CHEW THE TABLET 90 Tablet 1 3 09/01/20 23 Discontinued documented as of this encounter (statuses as of 09/01/2023) Active Problems Problem Noted Date Diagnosed Date [...] ase with esophagitis without hemorrhage Atherosclerosis of [place] co ronary artery of [place] heart without angina pectoris Pulmonary nodules Adrenal adenoma Persistent insomnia Morbid obesity with BMI of 40.0-44.9, adult documented as of this encounter (statuses as of 09/01/2023) Resolved Problems Problem Noted Date Diagnosed Date [...] as of this encounter (statuses as of 09/01/2023) Immunizations Name Administration Dates Next Due COVID-19 [...] encounter Miscellaneous Notes * Telephone Encounter - Sierra Mai [facility] - 09/01/2023 3:41 PM ESTSigned Prescriptions: Disp Refills Atorvastatin Calcium 80 MG Oral Tablet (Li*90 Tab*0 Sig: TAKE ONE TABLET BY MOUTH AT BEDTIMEAuthorizing Provider: IKE GU User: SIERRA MAI WPantoprazole Sodium 40 MG Oral Tablet Angelica*90 Tab*1 Sig: TAKE ONE TABLET BY MOUTH IN THE MORNING 30MINUTES BEFORE FIRST MEAL OF THE DAYAuthorizing Provider: IKE GU User: SIERRA MAI * Telephone Encounter - Sierra Mai RPh - 09/01/2023 3:40 PM EST Provided 90 days supply of atorvastatin with 0 refill(s) until upcoming appointment. Per refill protocol patient should have lipid panel on file within past year. Reviewed AMP report, Care Gaps/Health Maintenance, medications list, and for any routine labs typically ordered for this patient. Lab orders placed. Please contact patient to advise of labs ordered for blood draw. Recommend patient to fast if able for labs. Patient may still have water and regular medications. Advise to obtain labs together with any other labs PCP may order for/at upcoming office visit 11/14/2023 Thanks, Sierra Mai, Larry.Ph. Clinical Pharmacist [facility] [phone] ext [phone] 09/01/2023,3:40 PM documented in this encounter Plan of Treatment Upcoming Encounters Date Type Department Care Team (Late st Contact Info) Description 11/14/2023 1:40 PM EST Office Visit Family Medicine [address] [place] [address] Adore Khan MD [address] [place] [address] [place] [phone] Scheduled Orders Name Type Priority Associated Diagnoses Orde r Schedule LIPID PANEL WITH DIRECT LDL IF TG IS HIGH Lab Routine Dyslipidemia, goal LDL below 100 Expected: 09/02/2023 (Approximate), Expires: 09/01/2024 Health Maintenance Due Date Last Done Comments [...] 05/20/2010 LUNG CANCER SCREENING - USE SMARTSET 59435 Completed 01/25/2022, 06/15/2015 Pneumococcal Vaccine: Pediatrics (0 [...] as of this encounter Visit Diagnoses Diagnosis Atherosclerosis of [place] coronary artery of [place] heart without angina pectoris Dyslipidemia, goal LDL below 100 Other and unspecified hyperlipidemia Epigastric pain Abdominal pain, epigastric documented in this encounter Care Teams Petroleum Plant Operator Relationship Specialty Start Date End Date Pilgram, Ike A, MD [address] [place] [address] [place] [phone] PCP - General Family Medicine 06/23/15 documented as of this encounter
--- OUTSIDE RECORDS SUMMARY | 2023-12-08 12:55 | External Medical Summary | Summary of Care ---
Author Name Unknown Organization [facility] Address [address] [place] [address] Phone [phone] Care Team Providers Care Rim Technician Name Role Phone Ike Gu MD Primary Care Provider Reason for Visit * Reason Onset Date Comments Medication Refill 09/29/2023 Encounter Details Date Type Department Care Team (Late st Contact Info) Description 09/29/2023 Refill Family Medicine [address] [address] Ike Gu MD [address] [place] [address] [place] [id number] Hereditary and idiopathic peripheral neuropathy Allergies No known active allergiesdocumented as of this encounter (statuses as of 10/02/2023) Medications Medication Sig Dispensed Refills Start Date [...] the morning. 180 Each 3 08/31/2022 Active Ramipril 5 MG Oral Capsule (Altace)Indications :Primary hypertension,Athero sclerosis of [place] coronary artery of [place] heart without angina pectoris TAKE 1 CAPSULE BY MOUTH DAILY BEFORE BEDTIME 90 Capsule 1 02/14/2023 Active Ipratropium-Albuter ol 0.5-2.5 (3) MG/3ML Inhalation Solution (Duoneb)Indications :COPD exacerbation (HCC) Inhale 3 mL via nebulizer every 6 hours as needed for Cough, Shortness of Breath or Wheezing. 120 mL 0 03/16/2023 Active Albuterol Sulfate (2.5 MG/3ML) 0.083% Inhalation Nebulization Solution (Proventil)Indicati ons:COPD, group D, by GOLD 2017 classification (HCC) [...] 80 MG Oral Tablet (Lipitor)Indication s:Atherosclerosis of [place] coronary artery of [place] heart without angina pectoris,Dyslipidem ia, goal LDL [...] at bedtime 180 Capsule 1 10/02/2023 Active Nortriptyline HCl 50 MG Oral Capsule (Pamelor)Indication s:Hereditary and idiopathic peripheral neuropathy 2 at bedtime 180 Capsule 1 12/05/2022 4 Discontinue d(Refill) documented as of this encounter (statuses as of 10/02/2023) Active Problems Problem Noted Date Diagnosed Date [...] ase with esophagitis without hemorrhage Atherosclerosis of [place] co ronary artery of [place] heart without angina pectoris Pulmonary nodules Adrenal adenoma Persistent insomnia Morbid obesity with BMI of 40.0-44.9, adult documented as of this encounter (statuses as of 10/02/2023) Resolved Problems Problem Noted Date Diagnosed Date [...] as of this encounter (statuses as of 10/02/2023) Immunizations Name Administration Dates Next Due COVID-19 [...] encounter Miscellaneous Notes * Telephone Encounter - Ike Gu MD - 10/02/2023 7:30 AM ESTSigned Prescriptions: Disp Refills Nortriptyline HCl 50 MG Oral Capsule (Trina*180 Ca*1 Si at bedtime Authorizing Provider: IKE GU * Telephone Encounter - Tracie Corrales [facility] - 10/01/2023 5:39 PM ESTPending Prescriptions: Disp Refills Nortriptyline HCl 50 MG Oral Capsule (Trina*180 Ca*1 Si at bedtime * Telephone Encounter - Tracie Corrales RPh - 10/01/2023 5:39 PM EST Pending Prescriptions: Disp Refills Nortriptyline HCl 50 MG Oral Capsule (Trina*180 Ca*1 Si at bedtime 05/17/2023 (in office), Visit date not found (telemedicine) 11/14/2023 If no future appointments scheduled, and last appointment is greater than a year ago, please schedule patient for a follow-up appointment Last date the medication was ordered: 12/05/22 Pharmacy: [facility], [address] [place] Is this request for a controlled substance?No Urine Drug Screen:No results found for this or any previous visit. Patient Phone Numbers Labs: Lab Results Component Value Date/Time CREAT 0.89 05/18/2023 12:00 AM CREAT 0.8 10/15/2019 03:40 PM POTASSIUM 4.7 05/18/2023 12:00 AM POTASSIUM 4.5 10/15/2019 03:40 PM TSH 1.04 04/07/2021 01:14 PM TSH 1.050 04/18/2018 12:00 AM TSH 1.37 02/09/2017 11:04 AM LDLCALC 58.2 11/15/2017 12:00 AM LDLCALC 89 09/04/2015 04:00 PM LDLDIRECT 77 12/28/2021 02:08 PM LDLDIRECT 81 10/15/2019 03:40 PM ALT 20 08/15/2017 12:00 AM ALT 13 10/07/2016 09:39 AM HGBA1C 5.8 02/09/2017 11:04 AM documented in this encounter Plan of Treatment Upcoming Encounters Date Type Department Care Team (Late st Contact Info) Description 11/14/2023 1:40 PM EST Office Visit Family Medicine [address] [place] [address] Adore Khan MD [address] [place] [address] [place] [phone] Health Maintenance Due Date Last Done Comments [...] 05/20/2010 LUNG CANCER SCREENING - USE SMARTSET 11623 Completed 01/25/2022, 06/15/2015 Pneumococcal Vaccine: Pediatrics (0 [...] as of this encounter Visit Diagnoses Diagnosis Hereditary and idiopathic peripheral neuropathy Unspecified hereditary and idiopathic peripheral neuropathy documented in this encounter Care Teams Rim Technician Relationship Specialty Start Date End Date Ike Gu MD [address] [place] [address] [place] [phone] PCP - General Family Medicine 06/23/15 documented as of this encounter
--- OUTSIDE RECORDS SUMMARY | 2023-12-08 12:55 | External Medical Summary ---
Author Name Unknown Address Unknown Organization [id number]:[facility] - [address] [place] [address] Laboratory Report Ordering Provider Test Date Status SIERRAVIVIANA DHALIWALLEIGH 11/15/2023 08:07:35 Final Observation Date Value Abnormality Reference (Units ) Status Triglyceride 11/15/2023 08:07:35 198 Above high normal <=174 (mg/dL) Final Triglyceride Reference Range s (mg/dL):
<150 Acceptable
150-174 Borderline high
175-499 High
>=500 Very high Cholesterol 11/15/2023 08:07:35 166 <200 (mg /dL) Final Total Cholesterol Reference Ranges (mg/dL):
<200 Desirable
200-239 Borderline high
>=240 High HDL 11/15/2023 08:07:35 60 >49 (mg/dL ) Final HDL Cholesterol Reference Ra nges (mg/dL):
>=60 High (Desirable)
<50 Low (Undesirable) For Females
<40 Low (Undesirable) For Males NON-HDL CHOLESTEROL 11/15/2023 08:07:35 106 <=159 (mg/dL) Final Non-HDL Cholesterol Referenc e Range (mg/dL):
<100 Target level for high risk ASCVD patient
<130 Optimal for general population
130-159 Near optimal for general population
160-189 Borderline High
190-219 High
>=220 Very High Performing Location [facility] - [address] [place] [address]
--- OUTSIDE RECORDS SUMMARY | 2023-12-08 12:55 | External Medical Summary | Summary of Care ---
Author Name Unknown Organization [facility] Address [address] [place] [address] Phone [phone] Care Team Providers Care Drug Coordinator Name Role Phone Adore Khan MD Primary Care Prov ider Reason for Visit * Reason Onset Date Comments Appointment 11/15/2023 Mammogram/Sleep Medicine Encounter Details Date Type Department Care Team ([facility] st Contact Info) Description 11/15/2023 Telephone Family Medicine [address] [address] Adore Khan MD [address] [place] [phone] Appointment (Mammogram/Sleep Medicine ) Allergies No known active allergiesdocumented as of [...] Oral Capsule (Altace)Indications: Primary hypertension,Atheros clerosis of [place] coronary artery of [place] heart without angina pectoris TAKE 1 CAPSULE [...] 80 MG Oral Tablet (Lipitor)Indications :Atherosclerosis of [place] coronary artery of [place] heart without angina pectoris,Dyslipidemi a, goal LDL [...] ase with esophagitis without hemorrhage Atherosclerosis of [place] co ronary artery of [place] heart without angina pectoris Pulmonary nodules Adrenal [...] encounter Miscellaneous Notes * Telephone Encounter - Diane Xiong OSA - 11/15/2023 9:08 AM EST I left message on patient's VM to call me (RE: Scheduling Mammogram and Sleep Med appts). documented in this encounter Plan of Treatment Upcoming Encounters Date Type Department Care Team (Late st Contact Info) Description 05/14/2024 11:20 AM EDT Office Visit [address] [address] Adore Khan MD [address] [place] [address] [place] [phone] Health Maintenance Due Date Last Done Comments Alpha-1 Antitrypsin 1982 Hepatitis B (1 of 3 - 19+ 3-dose series) 1983 COLONOSCOPY-EVERY 5 YRS AGES 18-100 06/10/2019 06/10/2014, 06/10/2014, 03/01/2012, Additional history exists Depression Screening 03/23/2021 03/23/2020 DISCUSS TOBACCO CESSATION (REFER TO SMARTSET #3768) 01/14/2023 01/14/2022 COVID-19 Vaccine (2022- season) 2023 [...] 05/20/2010 LUNG CANCER SCREENING - USE SMARTSET 27608 Completed 01/25/2022, 06/15/2015 Pneumococcal Vaccine: Pediatrics (0 [...] filedocumented as of this encounter Care Teams Drug Coordinator Relationship Specialty Start Date End Date Adore Khan MD [address] [place] [address] [place] [phone] PCP - General Family Medicine 11/14/23 documented as of this encounter
--- OUTSIDE RECORDS SUMMARY | 2023-12-08 12:55 | External Medical Summary ---
Author Name Unknown Address Unknown Organization K01:[facility] [address] [facility] [place] [address] Laboratory Report Ordering Provider Test Date Status NICOLÁS LIZAMA 11/15/2023 08:07:35 Final Observation Date Value Abnormality Reference (Units ) Status BUN 11/15/2023 08:07:35 10 6-20 (mg/dL) Final Creatinine 11/15/2023 08:07:35 0.8 0.5-1.0 (mg/dL) Final Glomerular filtration rate/1.73 sq M.predicted [Volume Rate/Area] in Serum, Plasma or Blood by Creatinine-based formula (CKD-EPI) 11/15/2023 08:07:35 80 >=60 (mL/min) Final eGFR is calculated based on the CKD-EPI 2020 equation SODIUM 11/15/2023 08:07:35 138 135-146 (m mol/L) Final Potassium 11/15/2023 08:07:35 4.9 3.5-5.1 (m mol/L) Final Cl 11/15/2023 08:07:35 98 98-107 (mm ol/L) Final CO2 11/15/2023 08:07:35 28 22-32 (mmo l/L) Final Anion gap 11/15/2023 08:07:35 12 7-15 (mmol /L) Final Glucose 11/15/2023 08:07:35 102 70-120 (mg /dL) Final Albumin 11/15/2023 08:07:35 4.4 3.8-5.0 (g /dL) Final AST (Aspartate aminotransferase) 11/15/2023 08:07:35 22 10-35 (U/L) Final Alk Phos 11/15/2023 08:07:35 117 35-130 (U/ L) Final Bilirubin, Total 11/15/2023 08:07:35 0.4 <=1 .2 (mg/dL) Final Calcium 11/15/2023 08:07:35 9.6 8.4-10.2 ( mg/dL) Final Protein 11/15/2023 08:07:35 6.8 6.0-8.3 (g /dL) Final ALT (Alanine aminotransferase) 11/15/2023 08:07:35 22 10-35 (U/L) Final Performing Location [facility] [place] [address] [facility] [address]
--- OUTSIDE RECORDS SUMMARY | 2023-12-08 12:55 | External Medical Summary | Summary of Care ---
Author Name Unknown Organization [facility] Address [address] [place] [address] Phone [phone] Care Team Providers Care Research Engineer Name Role Phone Adore Khan MD Primary Care Prov ider Encounter Details Date Type Department Care Team ([facility] st Contact Info) Description 11/16/2023 Telephone Family Medicine [address] [phone] Adore Khan MD [address] [place] [address] [place] [phone] Allergies No known active allergiesdocumented as of this encounter (statuses as of 11/20/2023) Medications Medication Sig Dispensed Refills Start Date [...] Oral Capsule (Altace)Indications: Primary hypertension,Atheros clerosis of [place] coronary artery of [place] heart without angina pectoris TAKE 1 CAPSULE [...] ns:COPD, group D, by GOLD 2017 classification ([facility]) Inhale 1 Vial via nebulizer every 4 [...] 80 MG Oral Tablet (Lipitor)Indications :Atherosclerosis of [place] coronary artery of [place] heart without angina pectoris,Dyslipidemi a, goal LDL [...] (Fluticasone-Umeclid inium-Vilanterol)Ind ications:COPD, severity to be determined ([facility]) Inhale 1 Puff by mouth in the morning. 180 Each 3 10/02/2023 Active Baclofen 10 MG Oral Tablet (Lioresal)Indication s:Hip pain, right Take 1 Tablet by mouth at bedtime as needed for Pain, Moderate or Muscle spasms. 20 Tablet 1 11/14/2023 Active documented as of this encounter (statuses as of 11/20/2023) Active Problems Problem Noted Date Diagnosed Date [...] ase with esophagitis without hemorrhage Atherosclerosis of [place] co ronary artery of [place] heart without angina pectoris Pulmonary nodules Adrenal adenoma Persistent insomnia Morbid obesity with BMI of 40.0-44.9, adult documented as of this encounter (statuses as of 11/20/2023) Resolved Problems Problem Noted Date Diagnosed Date [...] as of this encounter (statuses as of 11/20/2023) Immunizations Name Administration Dates Next Due COVID-19 [...] as of this encounter Miscellaneous Notes * Addendum Note - Cristy Mcguire CMA [...] 12/21/2023 9:00 AM EDT Imaging Radiology [address] [place] [phone] 01/16/2024 11:20 AM EDT Office Visit Sleep Disorders Ctr [facility] [address] [place] [phone] Maritza Florian, [address] [place] [address] 05/14/2024 11:20 AM EDT Office Visit Family Medicine [address] [place] [phone] Adore Khan MD [address] [place] [address] [place] [phone] Health Maintenance Due Date Last Done Comments [...] FOR COPD 11/14/2024 11/14/2023 GFR 11/15/2024 11/15/2023, 08/09/2022, 05/17/2023, Additional history exists Albumin/Creatinine Ratio 12/28/2024 12/28/2021, 09/19 Diabetes Screening 11/15/2026 11/15/2023, 0 11/15/2023, 05/18/2023, Additional history exists DTaP,Tdap,and Td Vaccines (3 - Td or Tdap) 12/29/2031 12/28/2021, 05/20/2010 LUNG CANCER SCREENING - USE SMARTSET [id number] Completed 01/25/2022, 06/15/2015 Pneumococcal Vaccine: Pediatrics (0 [...] filedocumented as of this encounter Care Teams Research Engineer Relationship Specialty Start Date End Date Adore Khan MD [address] [place] [address] [place] [phone] PCP - General Family Medicine 11/14/23 documented as of this encounter
--- OUTSIDE RECORDS SUMMARY | 2023-12-08 12:55 | External Medical Summary | Summary of Care ---
Author Name Unknown Organization [facility] Address [address] [place] [address] Phone [phone] Care Team Providers Care Help Desk Support Name Role Phone Adore Khan MD Primary Care Prov ider Reason for Visit * Reason Comments Outpatient Testing Encounter Details Date Type Department Care Team (Late st Contact Info) Description 11/15/2023 8:10 AM EST Laboratory Laboratory [address] [place] [phone] [facility] [address] [place] [phone] Dyslipidemia, goal LDL below 100; Atherosclerosis of [place] coronary artery of [place] heart without angina pectoris; Gastroesophageal reflux disease, unspecified whether esophagitis present; Primary hypertension Allergies No known active allergiesdocumented as of [...] Oral Capsule (Altace)Indications: Primary hypertension,Atheros clerosis of [place] coronary artery of [place] heart without angina pectoris TAKE 1 CAPSULE [...] 80 MG Oral Tablet (Lipitor)Indications :Atherosclerosis of [place] coronary artery of [place] heart without angina pectoris,Dyslipidemi a, goal LDL [...] ase with esophagitis without hemorrhage Atherosclerosis of [place] co ronary artery of [place] heart without angina pectoris Pulmonary nodules Adrenal [...] 11:20 AM EDT Office Visit Family Medicine [address] [place] [phone] Adore Khan MD [address] [place] [address] [place] [phone] Pending Results Name Type Priority Associated Diagnoses Date /Time LIPID PANEL WITH DIRECT LDL IF TG IS HIGH Lab Routine Dyslipidemia, goal LDL below 100 11/15/2023 8:07 AM EST COMPREHENSIVE METABOLIC PANEL Lab Routine Atherosclerosis of [place] coronary artery of [place] heart without angina pectoris Gastroesophageal reflux disease, unspecified whether esophagitis present 11/15/2023 8:07 AM EST HEMOGLOBIN A1C Lab Routine Atherosclerosis of [place] coronary artery of [place] heart without angina pectoris Primary hypertension Dyslipidemia, goal LDL below 100 11/15/2023 8:07 AM EST Health Maintenance Due Date Last Done Comments Alpha-1 Antitrypsin 1982 Hepatitis B (1 of 3 - 19+ 3-dose series) 1983 COLONOSCOPY-EVERY 5 YRS AGES 18-100 06/10/2019 06/10/2014, 06/10/2014, 03/01/2012, Additional history exists Depression Screening 03/23/2021 03/23/2020 DISCUSS TOBACCO CESSATION (REFER TO SMARTSET #3164) 01/14/2023 01/14/2022 COVID-19 Vaccine (2022- season) 2023 [...] 05/20/2010 LUNG CANCER SCREENING - USE SMARTSET [id number] Completed 01/25/2022, 06/15/2015 Pneumococcal Vaccine: Pediatrics (0 [...] as of this encounter Visit Diagnoses Diagnosis Dyslipidemia, goal LDL below 100 Other and unspecified hyperlipidemia Atherosclerosis of [place] coronary artery of [place] heart without angina pectoris Gastroesophageal reflux disease, unspecified whether esophagitis present Primary hypertension Unspecified essential hypertension documented in this encounter Care Teams Help Desk Support Relationship Specialty Start Date End Date Adore Khan MD [address] [place] [address] [place] [phone] PCP - General Family Medicine 11/14/23 documented as of this encounter
--- OUTSIDE RECORDS SUMMARY | 2023-12-08 12:55 | External Medical Summary ---
Author Name Unknown Address Unknown Organization K01[place] [place] [address] [place] [address] Laboratory Report Ordering Provider Test Date Status PAU ESQUIVEL 11/15/2023 08:07:35 Final Observation Date Value Abnormality Reference (Units ) Status LDL, (direct) 11/15/2023 08:07:35 81 <=129 (mg/dL) Final LDL Cholesterol Reference Ra nges (mg/dL):
<70 Target level for high risk ASCVD patient
<100 Optimal for general population
100-129 Near optimal for general population
130-159 Borderline high
160-189 High
>=190 Very high Performing Location LABORATORY [facility] - [address] [place] [address]
--- OUTSIDE RECORDS SUMMARY | 2023-12-08 12:55 | External Medical Summary | Summary of Care ---
Author Name Unknown Organization [facility] Address [address] [place] [address] Phone [phone] Care Team Providers Care Clinic Nurse Name Role Phone Adore Khan MD Primary Care Prov ider Reason for Visit * Reason Onset Date Comments Appointment 11/15/2023 Mammogram/Sleep Medicine Encounter Details Date Type Department Care Team ([facility] st Contact Info) Description 11/15/2023 Telephone Family Medicine [address] [phone] Adore Khan MD [address] [place] [phone] Appointment (Mammogram/Sleep Medicine ) Allergies No [...] Oral Capsule (Altace)Indications: Primary hypertension,Atheros clerosis of [place] coronary artery of [place] heart without angina pectoris TAKE 1 CAPSULE [...] 80 MG Oral Tablet (Lipitor)Indications :Atherosclerosis of [place] coronary artery of [place] heart without angina pectoris,Dyslipidemi a, goal LDL [...] ase with esophagitis without hemorrhage Atherosclerosis of [place] co ronary artery of [place] heart without angina pectoris Pulmonary nodules Adrenal [...] Encounter - Diane Xiong OSA - 11/15/2023 9:59 AM EST Appts scheduled, pt aware. * Telephone Encounter - Diane Xiong OSA - 11/15/2023 9:08 AM EST I left message on patient's VM to call me (RE: Scheduling Mammogram and Sleep Med appts). documented in this encounter Plan of Treatment Upcoming Encounters Date Type Department Care Team (Late st Contact Info) Description 12/21/2023 9:00 AM EDT Imaging Radiology [address] [place] [address] 01/16/2024 11:20 AM EDT Office Visit Sleep Disorders Ctr [facility] [address] [place] [phone] Maritza Florian, [address] [place] [phone] 05/14/2024 11:20 AM EDT Office Visit Family Medicine [address] [place] [phone] Adore Khan MD [address] [place] [address] [place] [phone] Health Maintenance Due Date Last Done Comments [...] COPD 11/14/2024 11/14/2023 Albumin/Creatinine Ratio 12/28/2024 12/28/2021, /04/2020 Diabetes Screening 05/18/2026 05/18/2023, 0 05/17/2023, 05/12/2022, Additional history exists DTaP,Tdap,and Td Vaccines (3 - Td or Tdap) 12/29/2031 12/28/2021, 05/20/2010 LUNG CANCER SCREENING - USE SMARTSET [id number] Completed 01/25/2022, 06/15/2015 Pneumococcal Vaccine: Pediatrics (0 [...] filedocumented as of this encounter Care Teams Clinic Nurse Relationship Specialty Start Date End Date Adore Khan MD [address] [place] [address] [place] [phone] PCP - General Family Medicine 11/14/23 documented as of this encounter
--- OUTSIDE RECORDS SUMMARY | 2023-12-08 12:55 | External Medical Summary ---
Author Name Unknown Address Unknown Organization K01:[facility] [place] [address] [facility] [address] Laboratory Report Ordering Provider Test Date Status NICOLÁS LIZAMA 11/15/2023 08:07:35 Final Observation Date Value Abnormality Reference (Units ) Status HbA1C 11/15/2023 08:07:35 6.0 Above high normal 4. 0-5.6 (%) Final The use of HbA1c to monitor glycemic status is based on normal hemoglobin and HbA composition. This test should not be used in patients with abnormal hemoglobin that affects the half life of the red blood cell or the in vivo glycation rates. Glucose, estimated average 11/15/2023 08:07:35 126 Above high normal <126 (mg/dL) Chemo coats Performing Location LAB[facility] [place] - [address] [facility] [address]
--- OUTSIDE RECORDS SUMMARY | 2023-12-08 12:56 | External Medical Summary | Summary of Care ---
Author Name Unknown Organization [facility] Address [address] [place] [address] Phone [phone] Care Team Providers Care Welder Explosion Name Role Phone Chris Draper MD Primary Care Provider Encounter Details Date Type Department Care Team Description 03/17/2023 Telephone COVID19 Screening [facility] DEPT CLOSED 06/29/21 [address] [place] [phone], Automated Provider Allergies No known active allergiesdocumented as of this encounter (statuses as of 06/16/2023) Medications Medication Sig Dispensed Refills Start Date [...] the morning. 180 Each 3 08/31/2022 Active Atorvastatin Calcium 80 MG Oral Tablet (Lipitor)Indications: Atherosclerosis of [place] coronary artery of [place] heart without angina pectoris,Dyslipidemia , goal LDL below 100 take one pill by mouth at bedtime 90 Tablet 1 12/05/2022 Active Nortriptyline HCl 50 MG Oral Capsule (Pamelor)Indications: Hereditary and idiopathic peripheral neuropathy 2 at bedtime 180 Capsule 1 12/05/2022 Active Metoprolol Tartrate 25 MG Oral Tablet (Lopressor)Indication s:Primary hypertension take 1 tablet by mouth twice a day 180 Tablet 1 01/24/2023 Active Pantoprazole Sodium 40 MG Oral Tablet Delayed Release (Protonix)Indications :Epigastric pain take 1 tablet by mouth every morning 30 MINUTES BEFORE FIRST MEAL OF THE DAY. DO NOT CRUSH, SPLIT OR CHEW THE TABLET 90 Tablet 1 01/31/2023 Active Ramipril 5 MG Oral Capsule (Altace)Indications:P rimary hypertension,Atherosc lerosis of [place] coronary artery of [place] heart without angina pectoris TAKE 1 CAPSULE BY MOUTH DAILY BEFORE BEDTIME 90 Capsule 1 02/14/2023 Active Ipratropium-Albuterol 0.5-2.5 (3) MG/3ML Inhalation Solution (Duoneb)Indications:C OPD exacerbation (HCC) Inhale 3 mL via nebulizer every 6 hours as needed for Cough, Shortness of Breath or Wheezing. 120 mL 0 03/16/2023 Active Albuterol Sulfate (2.5 MG/3ML) 0.083% Inhalation Nebulization Solution (Proventil)Indication s:COPD, group D, by GOLD 2017 classification (HCC) Inhale 1 Vial via nebulizer every 4 hours as needed for Wheezing or Shortness of Breath. 120 mL 2 03/16/2023 Active Hospital, Clinic, or Other Facility Administered Medication Ordered Dose Route Frequency Start Date End Date Status Albuterol Sulfate (Proventil) (5 MG/ML) 0.5% *conc* inhalation solution 2.5 mgIndications:COPD, severity to be determined (HCC) 2.5 mg NEBULIZER PRN 08/31/2022 08/31/2023 Active Albuterol Sulfate (Proventil) (2.5 MG/3ML) 0.083% inhalation solution 2.5 mgIndications:COPD, severity to be determined (HCC) 2.5 mg NEBULIZER PRN 08/31/2022 08/31/2023 Active documented as of this encounter (statuses as of 06/16/2023) Active Problems Problem Noted Date COPD, group D, by GOLD 2017 classificati on 09/26/2022 Overview: Per COPD GOLD Classification Tarsal tunnel syndrome of right side Pulmonary emphysema 05/16/2022 Polycythemia secondary to smoking 2021 Lumbosacral radiculopathy at L4 03/17/20 21 Overview: abnormal EMG Folic acid deficiency 02/10/2017 Gastritis 11/01/2016 Overview: entire stomach on EGD. Calcaneal spur of right foot 09/18/2016 Tinea versicolor 08/24/2016 Dyslipidemia, goal LDL below 100 012 Hiatal hernia 10/28/2011 Primary hypertension Tobacco use disorder Gastroesophageal reflux disease with eso phagitis without hemorrhage Atherosclerosis of [place] co ronary artery of [place] heart without angina pectoris Pulmonary nodules Adrenal adenoma Persistent insomnia Morbid obesity with BMI of 40.0-44.9, ad ult documented as of this encounter (statuses as of 06/16/2023) Resolved Problems Problem Noted Date Resolved Date COPD, group C, by GOLD 2017 classification 05/3009/29/2022 Overview: Per COPD GOLD Classification Bronchospasm 01/04/2020 01/14/2022 Elevated hemoglobin 06/17/2014 02/14/2017 H. pylori infection 11/08/2011 12/28/2015 Overview: treatment ordered Obesity, Class II, BMI 35-39.9, isolated (see ac tual BMI) 03/01/2010 03/04/2015 Overview: Per Obesity Protocol, #19 Hypothyroidism 02/25/2013 CAD (coronary artery disease) BMI 40.0-44.9, adult 05/05/2018 Overview: 242 lbs Pericardial effusion 09/04/2015 documented as of this encounter (statuses as of 06/16/2023) Immunizations Name Administration Dates Next Due COVID-19 [...] = 0.6 oz pur e alcohol) occ Food Insecurity Answer Date Recorded Within the past 12 months, y ou worried that your food would run out before you got money to buy more. Never true 11/28/2022 Within the past 12 months, t he food you bought just didn't last and you didn't have money to get more. Never true 11/28/2022 Sex Assigned at Date Recorded Female 05/17/2021 11:44 AM EDT Job Start Date Occupation Industry Not on file Not on file Not on file documented as of this encounter Plan of Treatment Upcoming Encounters Date Type Specialty Care Team Description 11/14/2023 Office Visit Family Medicine Lionel French, Adore Leyva MD [address] [place] [address] [place] [phone] Health Maintenance Due Date Last Done Comments Hepatitis B (1 of 3 - 3-dose series) 1964 Alpha-1 Antitrypsin 1982 Zoster Vaccines (1 of 2) 2014 COLONOSCOPY-EVERY 5 YRS AGES 18-100 06/10/2019 06/10/2014, 06/10/2014, 03/01/2012, Additional history exists Depression Screening 03/23/2021 03/23/2020 COVID-19 Vaccine (3 - Moderna series) 06/02/2021 04/07/2021, 03/12/2021 DISCUSS TOBACCO CESSATION (REFER TO SMARTSET #3291) 01/14/2023 01/14/2022 Influenza Vaccine (FLU shot) (#1) 2023 08/22/2017 [...] 05/20/2010 LUNG CANCER SCREENING - USE SMARTSET [id number] Completed 01/25/2022, 06/15/2015 Pneumococcal Vaccine: Pediatrics (0 [...] filedocumented as of this encounter Care Teams Welder Explosion Relationship Specialty Start Date End Date Chris Draper MD [address] [place] [address] [place] [phone] PCP - General Family Medicine 06/23/15 documented as of this encounter
--- OUTSIDE RECORDS SUMMARY | 2023-12-08 12:56 | External Medical Summary | Summary of Care ---
Author Name Unknown Organization [facility] Address [address] [place] [address] Phone [phone] Care Team Providers Care Pavilion Cutter Name Role Phone Chris Draper MD Primary Care Provider Encounter Details Date Type Department Care Team Description 03/17/2023 Telephone COVID19 Screening [facility] DEPT CLOSED 06/29/21 [address] [place] [address] [phone], Automated Provider Allergies No known active allergiesdocumented [...] 80 MG Oral Tablet (Lipitor)Indications: Atherosclerosis of [place] coronary artery of [place] heart without angina pectoris,Dyslipidemia , goal LDL [...] Oral Capsule (Altace)Indications:P rimary hypertension,Atherosc lerosis of [place] coronary artery of [place] heart without angina pectoris TAKE 1 CAPSULE [...] with eso phagitis without hemorrhage Atherosclerosis of [place] co ronary artery of [place] heart without angina pectoris Pulmonary nodules Adrenal [...] Family Medicine Lionel French, Adore Leyva MD [address] [place] [address] [place] [phone] Health Maintenance Due Date [...] 05/20/2010 LUNG CANCER SCREENING - USE SMARTSET [id number] Completed 01/25/2022, 06/15/2015 Pneumococcal Vaccine: Pediatrics (0 [...] filedocumented as of this encounter Care Teams Pavilion Cutter Relationship Specialty Start Date End Date Chris Draper MD [address] [place] [address] [place] [phone] PCP - General Family Medicine 06/23/15 documented as of this encounter
--- OUTSIDE RECORDS SUMMARY | 2023-12-08 12:56 | External Medical Summary | Summary of Care ---
Author Name Unknown Organization [facility] Address [address] [place] [address] Phone [phone] Care Team Providers Care Radiotelegrapher Name Role Phone Chris Draper MD Primary Care Provider Encounter Details Date Type Department Care Team Description 03/17/2023 Telephone COVID19 Screening [facility] DEPT CLOSED 06/29/21 [address] [place] [phone], Automated Provider Allergies No known active allergiesdocumented [...] 80 MG Oral Tablet (Lipitor)Indications: Atherosclerosis of [place] coronary artery of [place] heart without angina pectoris,Dyslipidemia , goal LDL [...] Oral Capsule (Altace)Indications:P rimary hypertension,Atherosc lerosis of [place] coronary artery of [place] heart without angina pectoris TAKE 1 CAPSULE [...] with eso phagitis without hemorrhage Atherosclerosis of [place] co ronary artery of [place] heart without angina pectoris Pulmonary nodules Adrenal [...] Family Medicine Lionel French, Adore Leyva MD [address] [place] [address] [place] [phone] Health Maintenance Due Date [...] 05/20/2010 LUNG CANCER SCREENING - USE SMARTSET [id number] Completed 01/25/2022, 06/15/2015 Pneumococcal Vaccine: Pediatrics (0 [...] filedocumented as of this encounter Care Teams Radiotelegrapher Relationship Specialty Start Date End Date Chris Draper MD [address] [place] [address] [place] [phone] PCP - General Family Medicine 06/23/15 documented as of this encounter
--- OUTSIDE RECORDS SUMMARY | 2023-12-08 12:56 | External Medical Summary | Summary of Care ---
Author Name Unknown Organization [facility] Address [address] [place] [address] Phone [phone] Care Team Providers Care Outbound Supervisor Name Role Phone Chris Draper MD Primary Care Provider [phone] Encounter Details Date Type Department Care Team Description 03/17/2023 Telephone COVID19 Screening [facility] DEPT CLOSED 06/29/21 [address] [place] [phone], Automated Provider Allergies No known active allergiesdocumented [...] 80 MG Oral Tablet (Lipitor)Indications: Atherosclerosis of [place] coronary artery of [place] heart without angina pectoris,Dyslipidemia , goal LDL [...] Oral Capsule (Altace)Indications:P rimary hypertension,Atherosc lerosis of [place] coronary artery of [place] heart without angina pectoris TAKE 1 CAPSULE [...] with eso phagitis without hemorrhage Atherosclerosis of [place] co ronary artery of [place] heart without angina pectoris Pulmonary nodules Adrenal [...] Family Medicine Lionel French, Adore Leyva MD [address] [place] [address] [place] [phone] Health Maintenance Due Date [...] 05/20/2010 LUNG CANCER SCREENING - USE SMARTSET [id number] Completed 01/25/2022, 06/15/2015 Pneumococcal Vaccine: Pediatrics (0 [...] filedocumented as of this encounter Care Teams Outbound Supervisor Relationship Specialty Start Date End Date Chris Draper MD [address] [place] [address] [place] [phone] PCP - General Family Medicine 06/23/15 documented as of this encounter
--- OUTSIDE RECORDS SUMMARY | 2023-12-08 12:56 | External Medical Summary | Summary of Care ---
Author Name Unknown Organization [facility] Address [address] [place] [address] Phone [phone] Care Team Providers Care Concrete Rod Buster Name Role Phone Chris Draper MD Primary Care Provider Encounter Details Date Type Department Care Team Description 03/17/2023 Telephone COVID19 Screening [facility] DEPT CLOSED 06/29/21 [address] [place] [address] [phone], Automated Provider Allergies No known active allergiesdocumented [...] 80 MG Oral Tablet (Lipitor)Indications: Atherosclerosis of [place] coronary artery of [place] heart without angina pectoris,Dyslipidemia , goal LDL [...] Oral Capsule (Altace)Indications:P rimary hypertension,Atherosc lerosis of [place] coronary artery of [place] heart without angina pectoris TAKE 1 CAPSULE [...] with eso phagitis without hemorrhage Atherosclerosis of [place] co ronary artery of [place] heart without angina pectoris Pulmonary nodules Adrenal [...] Family Medicine Lionel French, Adore Leyva MD [address] [place] [address] [place] [phone] Health Maintenance Due Date [...] 05/20/2010 LUNG CANCER SCREENING - USE SMARTSET [id number] Completed 01/25/2022, 06/15/2015 Pneumococcal Vaccine: Pediatrics (0 [...] filedocumented as of this encounter Care Teams Concrete Rod Buster Relationship Specialty Start Date End Date Chris Draper MD [address] [place] [address] [place] [phone] PCP - General Family Medicine 06/23/15 documented as of this encounter
--- OUTSIDE RECORDS SUMMARY | 2023-12-08 12:56 | External Medical Summary | Summary of Care ---
Author Name Unknown Organization [facility] Address [address] [place] [address] Phone [phone] Care Team Providers Care Pre Billing Specialist Name Role Phone Chris Draper MD Primary Care Provider Encounter Details Date Type Department Care Team Description 03/17/2023 Telephone COVID19 Screening [facility] DEPT CLOSED 06/29/21 [address] [place] [address] [phone], Automated Provider Allergies No known active allergiesdocumented [...] 80 MG Oral Tablet (Lipitor)Indications: Atherosclerosis of [place] coronary artery of [place] heart without angina pectoris,Dyslipidemia , goal LDL [...] Oral Capsule (Altace)Indications:P rimary hypertension,Atherosc lerosis of [place] coronary artery of [place] heart without angina pectoris TAKE 1 CAPSULE [...] with eso phagitis without hemorrhage Atherosclerosis of [place] co ronary artery of [place] heart without angina pectoris Pulmonary nodules Adrenal [...] Family Medicine Lionel French, Adore Leyva MD [address] [place] [address] [place] [phone] Health Maintenance Due Date [...] 05/20/2010 LUNG CANCER SCREENING - USE SMARTSET [id number] Completed 01/25/2022, 06/15/2015 Pneumococcal Vaccine: Pediatrics (0 [...] filedocumented as of this encounter Care Teams Pre Billing Specialist Relationship Specialty Start Date End Date Chris Draper MD [address] [place] [address] [place] [phone] PCP - General Family Medicine 06/23/15 documented as of this encounter
--- OUTSIDE RECORDS SUMMARY | 2023-12-08 12:56 | External Medical Summary | Summary of Care ---
Author Name Unknown Organization [facility] Address [address] [place] [address] Phone [phone] Care Team Providers Care Card Dealer Name Role Phone Chris Draper MD Primary Care Provider [phone] Encounter Details Date Type Department Care Team (Late st Contact Info) Description 08/25/2023 Orders Only Family Medicine [address] [phone] Chris Draper MD [address] [place] [phone] Allergies No known active allergiesdocumented as of this encounter (statuses as of 08/25/2023) Medications Medication Sig Dispensed Refills Start Date [...] 80 MG Oral Tablet (Lipitor)Indications: Atherosclerosis of [place] coronary artery of [place] heart without angina pectoris,Dyslipidemia , goal LDL [...] Oral Capsule (Altace)Indications:P rimary hypertension,Atherosc lerosis of [place] coronary artery of [place] heart without angina pectoris TAKE 1 CAPSULE BY MOUTH DAILY BEFORE BEDTIME 90 Capsule 1 02/14/2023 Active Ipratropium-Albuterol 0.5-2.5 (3) MG/3ML Inhalation Solution (Duoneb)Indications:C OPD exacerbation ([facility]) Inhale 3 mL via nebulizer every 6 hours as needed for Cough, Shortness of Breath or Wheezing. 120 mL 0 03/16/2023 Active Albuterol Sulfate (2.5 MG/3ML) 0.083% Inhalation Nebulization Solution (Proventil)Indication s:COPD, group D, by GOLD 2017 classification ([facility]) Inhale 1 Vial via nebulizer every 4 hours as needed for Wheezing or Shortness of Breath. 120 mL 2 03/16/2023 Active DULoxetine HCl 60 MG Oral Capsule Delayed Release Particles (Cymbalta)Indications :Chronic foot pain, right take 1 capsule by mouth every morning DO NOT CRUSH, CHEW, AND/OR DIVIDE 90 Capsule 1 05/17/2023 Active Hospital, Clinic, or Other Facility Administered [...] as of this encounter (statuses as of 08/25/2023) Active Problems Problem Noted Date Diagnosed Date [...] ase with esophagitis without hemorrhage Atherosclerosis of [place] co ronary artery of [place] heart without angina pectoris Pulmonary nodules Adrenal adenoma Persistent insomnia Morbid obesity with BMI of 40.0-44.9, adult documented as of this encounter (statuses as of 08/25/2023) Resolved Problems Problem Noted Date Diagnosed Date [...] as of this encounter (statuses as of 08/25/2023) Immunizations Name Administration Dates Next Due COVID-19 [...] 1:40 PM EST Office Visit Family Medicine [address] [place] [phone] Adore Khan MD [address] [place] [address] [place] [phone] Health Maintenance Due Date Last Done Comments Hepatitis B (1 of 3 - 3-dose series) 1964 Alpha-1 Antitrypsin 1982 Zoster Vaccines (1 of 2) 2014 COLONOSCOPY-EVERY 5 YRS AGES 18-100 06/10/2019 06/10/2014, 06/10/2014, 03/01/2012, Additional history exists Depression Screening 03/23/2021 03/23/2020 DISCUSS TOBACCO CESSATION (REFER TO SMARTSET #1148) 01/14/2023 01/14/2022 COVID-19 Vaccine (3 - 2022-24 [...] 05/20/2010 LUNG CANCER SCREENING - USE SMARTSET [id number] Completed 01/25/2022, 06/15/2015 Pneumococcal Vaccine: Pediatrics (0 [...] Procedure Name Priority Date/Time Associated Diagnosis Comments CHEMISTRY-OUTSIDE Routine 08/24/2023 documented in this encounter Results * CHEMISTRY-OUTSIDE (08/24/2023) Not all results display below - see scan for full detail OUTSIDE LAB (SEE SCANNED REPORT) Comment:SCAN INCLUDES - CBCD , LDH CREATININE-OUTSID E LAB OUTSIDE LAB (SEE SCANNED REPORT) EGFR-OUTSIDE LAB OUT SIDE LAB (SEE SCANNED REPORT) POTASSIUM-OUTSIDE LAB OUTSIDE LAB (SEE SCANNED REPORT) GLUCOSE-OUTSIDE LAB OUTSIDE LAB (SEE SCANNED REPORT) HOURS FASTING OUTSID E LAB (SEE SCANNED REPORT) TRIGLYCERIDES-OUT SIDE LAB OUTSIDE LAB (SEE SCANNED REPORT) CHOLESTEROL-OUTSI DE LAB OUTSIDE LAB (SEE SCANNED REPORT) HDL-OUTSIDE LAB OUTS [facility] (SEE SCANNED REPORT) CHOL/HDL RATIO-OUTSIDE LAB OUTSIDE LA B (SEE SCANNED REPORT) LDL (CALCULATED)-OUTS [facility] OUTSIDE LAB (SEE SCANNED REPORT) LDL (DIRECT MEASURE)-OUTSIDE LAB OUTSIDE LAB (SEE SCANNED REPORT) HEMOGLOBIN, Q1L-[facility] LAB OUTSIDE LAB (SEE SCANNED REPORT) PHOSPHORUS-OUTSID E LAB OUTSIDE LAB (SEE SCANNED REPORT) PTH-OUTSIDE LAB OUTS [facility] (SEE SCANNED REPORT) MICROALBUMIN RATIO-OUTSIDE LAB OUTSIDE LA B (SEE SCANNED REPORT) PROTEIN, UA-OUTSIDE LAB OUTSIDE LAB (SEE SCANNED REPORT) HEMOGLOBIN-OUTSID E LAB 12.8 12.0 - 16.0 GM/DL OUTSIDE LAB (SEE SCANNED REPORT) 08/24/2023 Dona Andujar PA-C LABORATORY OUTSIDE LAB (SEE SCANNED REPORT) documented in this encounter Care Teams Card Dealer Relationship Specialty Start Date End Date Chris Draper MD [address] [place] [address] [place] [phone] PCP - General Family Medicine 06/23/15 documented as of this encounter
--- OUTSIDE RECORDS SUMMARY | 2023-12-08 12:56 | External Medical Summary | Summary of Care ---
Author Name Unknown Organization [facility] Address [address] [place] [address] Phone [phone] Care Team Providers Care Survey Superintendent Name Role Phone Chris Draper MD Primary Care Provider Encounter Details Date Type Department Care Team Description 03/17/2023 Telephone COVID19 Screening [facility] DEPT CLOSED 06/29/21 [address] [place] [address] [phone], Automated Provider Allergies No known active allergiesdocumented [...] 80 MG Oral Tablet (Lipitor)Indications: Atherosclerosis of [place] coronary artery of [place] heart without angina pectoris,Dyslipidemia , goal LDL [...] Oral Capsule (Altace)Indications:P rimary hypertension,Atherosc lerosis of [place] coronary artery of [place] heart without angina pectoris TAKE 1 CAPSULE [...] with eso phagitis without hemorrhage Atherosclerosis of [place] co ronary artery of [place] heart without angina pectoris Pulmonary nodules Adrenal [...] Family Medicine Lionel French, Adore Leyva MD [address] [place] [address] [place] [phone] Health Maintenance Due Date [...] 05/20/2010 LUNG CANCER SCREENING - USE SMARTSET [id number] Completed 01/25/2022, 06/15/2015 Pneumococcal Vaccine: Pediatrics (0 [...] filedocumented as of this encounter Care Teams Survey Superintendent Relationship Specialty Start Date End Date Chris Draper MD [address] [place] [address] [place] [phone] PCP - General Family Medicine 06/23/15 documented as of this encounter
--- OUTSIDE RECORDS SUMMARY | 2023-12-08 12:56 | External Medical Summary | Summary of Care ---
Author Name Unknown Organization [facility] Address [address] [place] [address] Phone [phone] Care Team Providers Care Inside Sales Administrator Name Role Phone Chris Draper MD Primary Care Provider [phone] Encounter Details Date Type Department Care Team Description 03/17/2023 Telephone COVID19 Screening [facility] DEPT CLOSED 06/29/21 [address] [place] [phone], Automated Provider Allergies No known active allergiesdocumented [...] 80 MG Oral Tablet (Lipitor)Indications: Atherosclerosis of [place] coronary artery of [place] heart without angina pectoris,Dyslipidemia , goal LDL [...] Oral Capsule (Altace)Indications:P rimary hypertension,Atherosc lerosis of [place] coronary artery of [place] heart without angina pectoris TAKE 1 CAPSULE [...] with eso phagitis without hemorrhage Atherosclerosis of [place] co ronary artery of [place] heart without angina pectoris Pulmonary nodules Adrenal [...] Family Medicine Lionel French, Adore Leyva MD [address] [place] [address] [place] [phone] Health Maintenance Due Date [...] 05/20/2010 LUNG CANCER SCREENING - USE SMARTSET [id number] Completed 01/25/2022, 06/15/2015 Pneumococcal Vaccine: Pediatrics (0 [...] filedocumented as of this encounter Care Teams Inside Sales Administrator Relationship Specialty Start Date End Date Chris Draper MD [address] [place] [address] [place] [phone] PCP - General Family Medicine 06/23/15 documented as of this encounter
--- OUTSIDE RECORDS SUMMARY | 2023-12-08 15:06 | External Medical Summary | Summary of Care ---
Author Name Unknown Organization [facility] Address [address] [place] [address] Phone [phone] Care Team Providers Care Spanish Language Lecturer Name Role Phone Adore Khan MD Primary Care Prov ider Reason for Referral * Evaluate & Treat - Unlimited Visits (Within 3 days (urgent)) - Authorized Specialty Diagnoses / Procedures Referred By Contchhaya t Referred To Contact Pulmonary Diseases / Pulmonary Diagnoses COPD exacerbation (HCC) Holden Hoffman PA-C [address] [place] [id number] Referral ID Status Reason Start Date Expiration Date Visits Requested Visits Authorized [id number] Authorized Specialty Services Required 12/07/2023 999 999 Question Answer Referral Priority Within 3 days (urgent) Where should this appointment be scheduled? [facility] Primary Reason for Referral? Asthma/COPD Reason for Visit * Reason Comments Short of Breath Encounter Details Date Type Department Care Team (Latest Contact Info) Description 12/07/2023 2:30 PM EDT Convenient Care Visit [facility] [address] [place] [address] Holden Hoffman PA-C [address] [place] [phone] COPD exacerbation (HCC)*; Hypoxia Allergies No known active allergiesdocumented as of this encounter (statuses as of 12/07/2023) Medications Medication Sig Dispensed Refills Start Date [...] Oral Capsule (Altace)Indications: Primary hypertension,Atheros clerosis of [place] coronary artery of [place] heart without angina pectoris TAKE 1 CAPSULE BY MOUTH DAILY BEFORE BEDTIME 90 Capsule 1 02/14/2023 Active Ipratropium-Albutero l 0.5-2.5 (3) MG/3ML Inhalation Solution (Duoneb)Indications: COPD exacerbation ([facility]) Inhale 3 mL via nebulizer every 6 hours as needed for Cough, Shortness of Breath or Wheezing. 120 mL 0 03/16/2023 Active Albuterol Sulfate (2.5 MG/3ML) 0.083% Inhalation Nebulization Solution (Proventil)Indicatio ns:COPD, group D, by GOLD 2017 classification ([facility]) Inhale 1 Vial via nebulizer every 4 hours as needed for Wheezing or Shortness of Breath. 120 mL 2 03/16/2023 Active Atorvastatin Calcium 80 MG Oral Tablet (Lipitor)Indications :Atherosclerosis of [place] coronary artery of [place] heart without angina pectoris,Dyslipidemi a, goal LDL [...] Muscle spasms. 20 Tablet 1 11/14/2023 Active DULoxetine HCl 60 MG Oral Capsule Delayed Release Particles (Cymbalta)Indication s:Chronic foot pain, right take 1 capsule by mouth every morning DO NOT CRUSH, CHEW, AND/OR DIVIDE 90 Capsule 3 12/05/2023 Active predniSONE 20 MG Oral Tablet (Deltasone)Indicatio ns:COPD exacerbation (HCC) Take 2 Tablets by mouth in the morning for 5 days. 10 Tablet 0 12/07/2023 12/12/2023 Active Azithromycin 250 MG Oral Tablet (Zithromax Z-Heri)Indications:[place] PD exacerbation (HCC) Take two tablets by mouth on first day, then 1 tablet daily until gone 6 Tablet 0 12/07/2023 Active Hospital, Clinic, or Other Facility Administered Medication Ordered Dose Route Frequency Start Date End Date Status albuterol-ipratropium (Duoneb) inhalation solution 3 mLIndications:COPD exacerbation (HCC) 3 mL NEBULIZER ONCE 12/07/2023 12/08/2023 Active documented as of this encounter (statuses as of 12/07/2023) Active Problems Problem Noted Date Diagnosed Date [...] ase with esophagitis without hemorrhage Atherosclerosis of [place] co ronary artery of [place] heart without angina pectoris Pulmonary nodules Adrenal adenoma Persistent insomnia Morbid obesity with BMI of 40.0-44.9, adult documented as of this encounter (statuses as of 12/07/2023) Resolved Problems Problem Noted Date Diagnosed Date [...] as of this encounter (statuses as of 12/07/2023) Immunizations Name Administration Dates Next Due COVID-19 [...] Sign Reading Time Taken Comments Blood Pressure 136/84 12/07/2023 2:24 PM EDT Pulse 124 12/07/2023 2:24 PM EDT Temperature 36.9 C (98.5 F) 12/07/2023 2:24 PM ED T Respiratory Rate 22 12/07/2023 2:24 PM EDT Oxygen Saturation 92% 12/07/2023 2:24 PM EDT Inhaled Oxygen Concentration - - Weight 120.2 kg (265 lb) 12/07/2023 2:24 PM EDT Height 162.6 cm (5' 4") 12/07/2023 2:24 PM EDT Body Mass Index 45.49 12/07/2023 2:24 PM EDT documented in this encounter Progress Notes * Holden Hoffman PA-C - 12/07/2023 2:31 PM EDT Nursing Notes: Marla Ruiz LPN 12/07/23 1428 Signed Kristi Vee is a 58 year old female who presents to walk-in clinic today complaining of Chief Complaint Patient presents with Short of Breath Main Symptoms: SOB and cough Cause: unknown How lon days Tried: inhaler and nebulizer Pt accompanied by: boyfriend Subjective Kristi Vee is a 58 year old female that presents for Short of Breath Short of Breath This is a new problem. The current episode started in the past 7 days. The problem occurs constantly. The problem has been gradually worsening. Associated symptoms include sputum production (clear). Pertinent negatives include no abdominal pain, chest pain, claudication, coryza, ear pain, fever, headaches, hemoptysis, leg pain, leg swelling, neck pain, orthopnea, PND, rash, rhinorrhea, sore throat, swollen glands, syncope, vomiting or wheezing. The symptoms are aggravated by any activity. Associated symptoms comments: Reports increase cough . She has tried beta agonist inhalers and ipratropium inhalers (nebulizer, albuterol. uses trelegy daily) for the symptoms. The treatment provided mild relief. Her past medical history is significantfor COPD. Denies cold symptoms She notes that her SpO2% at home usually is 94-98% Occasionally she uses her boyfriends oxygen when short of breath, but she denies having her own oxygen therapy Objective BP 136/84 | Pulse 124 | Temp 36.9 C (98.5 F) (Tympanic) | Resp 22 | Ht 1.626 m (5' 4") | Wt 120.2 kg (265 lb) | LMP 01/27/2013 | SpO2 92% | BMI 45.49 kg/m | BSA 2.33 m Body mass index is 45.49 kg/m. BP Readings from Last 3 Encounters: 12/07/23 136/84 11/14/23 130/70 05/17/23 122/74 Wt Readings from Last 3 Encounters: 12/07/23 120.2 kg (265 lb) 11/14/23 120.2 kg (265 lb) 05/17/23 116.4 kg (256 lb 9 oz) Physical Exam Vitals and nursing note reviewed. Constitutional: General: She is not in acute distress. Appearance: She is well-developed. She is obese. She is not ill-appearing, toxic-appearing or diaphoretic. HENT: Head: Normocephalic and atraumatic. Eyes: Extraocular Movements: Extraocular movements intact. Neck: Vascular: No JVD. Trachea: No tracheal deviation. Cardiovascular: Rate and Rhythm: Regular rhythm. Tachycardia present. Pulses: Radial pulses are 2+ on the right side and 2+ on the left side. Heart sounds: Normal heart sounds. No murmur heard. No friction rub. No gallop. Pulmonary: Effort: Tachypnea and prolonged expiration present. No accessory muscle usage or respiratory distress. Breath sounds: Decreased air movement present. Decreased breath sounds, wheezing and rales present.No rhonchi. Chest: Chest wall: No mass, deformity, tenderness or crepitus. Abdominal: General: Bowel sounds are normal. Palpations: Abdomen is soft. There is no hepatomegaly or splenomegaly. Tenderness: There is no abdominal tenderness. There is no guarding or rebound. Musculoskeletal: General: Normal range of motion. Cervical back: Normal range of motion and neck supple. Right lower leg: No tenderness. No edema. Left lower leg: No tenderness. No edema. Skin: General: Skin is warm and dry. Capillary Refill: Capillary refill takes less than 2 seconds. Nails: There is no clubbing. Neurological: General: No focal deficit present. Mental Status: She is alert and oriented to person, place, and time. Psychiatric: Mood and Affect: Mood normal. Mood is not anxious. Behavior: Behavior normal. Behavior is not agitated. Assessment and plan 1. COPD exacerbation (HCC) - albuterol-ipratropium (Duoneb) inhalation solution 3 mL - predniSONE 20 MG Oral Tablet (Deltasone); Take 2 Tablets by mouth in the morning for 5 days. Dispense: 10 Tablet; Refill: 0 - Azithromycin 250 MG Oral Tablet (Zithromax Z-Heri); Take two tablets by mouth on first day, then 1tablet daily until gone Dispense: 6 Tablet; Refill: 0 - PULMONARY REFERRAL OP 2. Hypoxia SpO2% 91% at rest on RA. When patient talks/moves, it goes down to 89% S/P Nebulizer with 2L O2 via nasal canual, SpO2% now at 89%. Titrated to 6L O2. No changes to patient's breathing or lung sounds. 3. Acute hypoxic respiratory failure - pt needs further work-up and management at ER. - recommended EMS - refused - Boyfriend will cdl team truck driver her - will gut puller if acutely worsens - reports called to [facility] weigher and charger. Follow up To er now Total time today including reviewing chart before the visit, pertinent labs, imaging reports, face to face time, and documentation time was 45 minutes. The above was discussed and understanding was expressed. Holden Hoffman PA-C documented in this encounter Nursing Notes * Marla Ruiz LPN - 12/07/2023 2:23 PM EDT Kristi Vee is a 58 year old female who presents to walk-in clinic today complaining of Chief Complaint Patient presents with Short of Breath Main Symptoms: SOB and cough Cause: unknown How lon days Tried: inhaler and nebulizer Pt accompanied by: boyfriend documented in this encounter Plan of Treatment Upcoming Encounters Date Type Department Care Team (Late st Contact Info) Description 12/21/2023 9:00 AM EDT Imaging Radiology [address] [place] [phone] 01/16/2024 11:20 AM EDT Office Visit [facility] [address] [place] [phone] Maritza Florian, [address] [place] [address] 05/14/2024 11:20 AM EDT Office Visit Family Medicine [address] [place] [phone] Adore Khan MD [address] [place] [address] [place] [phone] Scheduled Referrals Name Type Priority Associated Diagnoses Orde r Schedule PULMONARY REFERRAL OP Referral Within 3 days (urgent) COPD exacerbation (HCC) Ordered: 12/07/2023 Health Maintenance Due Date Last Done Comments [...] 05/20/2010 LUNG CANCER SCREENING - USE SMARTSET [id number] Completed 01/25/2022, 06/15/2015 Pneumococcal Vaccine: Pediatrics (0 [...] as of this encounter Visit Diagnoses Diagnosis COPD exacerbation (HCC)- Primary Obstructive chronic bronchitis with exacerbation Hypoxia Hypoxemia documented in this encounter Care Teams Spanish Language Lecturer Relationship Specialty Start Date End Date Adore Khan MD [address] [place] [address] [place] [phone] PCP - General Family Medicine 11/14/23 documented as of this encounter
[2023-12-08] MEDS ORDERED: NORTRIPTYLINE HCL 25 MG CAP PO SCH (21:00)
[2023-12-08] MEDS ORDERED: ENALAPRIL MALEATE 10 MG TAB PO SCH (21:00)
== END 2023-12-08 17:40 | disposition home or self-care (01) | DRG 190 ==
LOC: ED 16:24 → 2W 21:46
DX: D45 Polycythemia vera; Z68.42 Body mass index [BMI] 45.0-49.9, adult; Z87.01 Personal history of pneumonia (recurrent); Z11.52 Encounter for screening for COVID-19; F41.9 Anxiety disorder, unspecified; Z79.82 Long term (current) use of aspirin; E66.9 Obesity, unspecified; E87.29 Other acidosis; Z79.51 Long term (current) use of inhaled steroids; J96.02 Acute respiratory failure with hypercapnia; Z95.5 Presence of coronary angioplasty implant and graft; I10 Essential (primary) hypertension; Z71.6 Tobacco abuse counseling; R73.03 Prediabetes; E83.42 Hypomagnesemia; E78.5 Hyperlipidemia, unspecified; J44.1 Chronic obstructive pulmonary disease with (acute) exacerbation; Z79.899 Other long term (current) drug therapy; F32.A Depression, unspecified; Z99.81 Dependence on supplemental oxygen; J96.01 Acute respiratory failure with hypoxia; I25.10 Atherosclerotic heart disease of native coronary artery without angina pectoris; K21.9 Gastro-esophageal reflux disease without esophagitis; F17.210 Nicotine dependence, cigarettes, uncomplicated